=== PATIENT | male | born 1945 | race Caucasian/White ===

== ENCOUNTER 2020-10-16 10:19 | Emergency (ER) | payer MEDICARE, SELFPAY ==
--- NOTE | ~2020-10-16 | XR_ITS ---
EXAMINATION: XR clavicle RT EXAM DATE: 10/16/2020 10:48 INDICATION: Right ribs and right clavicle pain after a fall . Initial encounter. TECHNIQUE: 2 frontal projections of the right clavicle with different degrees of tilt. There are no prior studies for comparison. FINDINGS: There are no acute fractures identified. There is moderate right shoulder primary osteoart hritis. High riding humeral head likely indicating chronic rotator cuff tear. The soft tissue is unr emarkable. IMPRESSION: 1. No acute clavicular fracture suspected. 2. Moderate right shoulder osteoarthritis. 3. Probable chronic rotator cuff tear. Reviewed, dictated and finalized at location A. ESS DEVELOPMENT ENGINEER
--- NOTE | ~2020-10-16 | XR_ITS ---
EXAMINATION: XR ribs RT 2V EXAM DATE: 10/16/2020 10:48 INDICATION: Right ribs and right clavicle pain after a fall . Initial encounter. TECHNIQUE: Frontal projection of the upper right ribs, frontal projection of the lower right ribs, ob lique projection of the right ribs, without chest x-ray(s) for interpretation. Correlation is made to chest x-ray 01/20/2019. FINDINGS: Acute nondisplaced right 5th rib fracture, and mildly displaced right 6th rib fracture late rally, mid axillary line. There is no soft tissue abnormality seen. No evidence of right-sided pneum othorax. Mild thoracic spondylosis, moderate right shoulder primary osteoarthritis. IMPRESSION: Right 5th, 6th rib fractures. Reviewed, dictated and finalized at location A. BUILDER
--- NOTE | 2020-10-16 10:21 | ED.FALL ---
HPI - Fall General Chief Complaint: Fall Stated Complaint: fall Time Seen by Provider: 10/16/20 10:30 Source: patient and RN notes reviewed Mode of arrival: ambulatory Limitations: no limitations History of Present Illness HPI Narrative: 74 year old male presents with concern for fall last night. He reports he tripped on a rug and fell into a table landing on his right shoulder and chest. He has right rib pain and right clavicle pain. He denies any difficulty breathing. Reports pain with deep breathing, coughing. He reports a clavicular deformity, denies clavicular tenderness. complaint: fall Related Data Home Medications Medication Instructions Recorded Confirmed aspirin 81 mg tablet,delayed 81 mg PO DAILY 09/12/19 10/16/20 release doxazosin 4 mg DAILY 10/16/20 10/16/20 Allergies Allergy/AdvReac Type Severity Reaction Status Date / Time lisinopril Allergy Intermediate cough Verified 09/07/20 14:22 Review of Systems Review of Systems: Narrative: CONSTITUTIONAL: Denies malaise, chills, sweats, or fever. EYES: Denies visual changes, redness, or discharge. ENT: Denies rhinorrhea, congestion, sinus pain, otalgia or sore throat. CARDIOVASCULAR: Denies chest pain, palpitations, or edema. RESPIRATORY: Denies cough or dyspnea. GASTROINTESTINAL: Denies abdominal pain, nausea, vomiting, diarrhea, bloody, or mucous stools. GENITOURINARY: Denies dysuria or hematuria. SKIN: Denies rash or itching. MUSCULOSKELETAL: Denies back pain, joint pain, or myalgia. NEUROLOGIC: Denies numbness, weakness, or headache. PSYCHIATRIC: Denies anxiety or depression. All systems reviewed & are unremarkable except as noted in HPI and below PMFSH Surgical History Surgical History History of back surgery History of cardiac radiofrequency ablation Status post hernia repair Family History Family History Father Family history of malignant neoplasm of esophagus Social History Social History Smoking status: Never smoker Second hand tobacco smoke exposure: No Alcohol intake: current Substance use: never Substance use type: does not use Gender identity (if verbalized by the patient): Male Comments At time of signature, agree with nursing past medical, surgical, social and family history. There is no relevant family history pertinent to the presenting complaint Exam Narrative: Exam Narrative: GENERAL: Well-appearing, well-nourished, and in no acute distress. HEAD: Normocephalic, atraumatic. EYES: PERRLA, conjunctivae clear ENT: Mucous membranes moist. NECK: Supple. No jugular venous distension. Carotids were easily palpable bilaterally. CHEST: No respiratory distress. Clear to auscultation. Medial clavicular deformity noted without tenderness to palpation. Speaks in full sentences. HEART: Regular rate and rhythm. No murmur heard.. EXTREMITIES: Right upper extremity has grossly normal range of motion, grossly normal strength and sensation. SKIN: Warm, dry, no rash. NEURO: Alert and oriented x3. PSYCH: Normal mood and affect Course Course Emergency Course: Consulted with radiologist regarding clavicular deformity, radiologist suggest possible CT scan. Consulted with Dr. Baltazar regarding plan of care for possible sternoclavicular dislocation. Dr. Baltazar suggest sending patient to the emergency room for CT scan. Patient reports he takes hydrocodone 3 times daily on a regular basis for chronic back pain. Patient reports that medicine was not easing the pain with deep breathing and coughing. Discussed with patient prescribing slightly stronger pain medicine, however patient needs to replace the stronger dose with his current dose, not take together. Patient verbalized understanding. Patient is aware of, understands and agrees to the emergency. Patient agrees to procee
[2020-10-16 10:40] VITALS: BP 142/66; PULSE 62; RESP 20; TEMP 36.6; O2SAT 99
== END 2020-10-16 11:36 | disposition short-term general hospital (02) ==
PROVIDERS: Emergency Provider Nurse Practitioner; PCP Family Medicine
DX: S22.41XA Multiple fractures of ribs, right side, initial encounter for closed fracture (principal); W18.09XA Striking against other object with subsequent fall, initial encounter; Z79.82 Long term (current) use of aspirin; I25.10 Atherosclerotic heart disease of native coronary artery without angina pectoris; I10 Essential (primary) hypertension; N40.0 Benign prostatic hyperplasia without lower urinary tract symptoms; M19.90 Unspecified osteoarthritis, unspecified site
CPT/HCPCS: 71100; 73000; 99214; G0463

== ENCOUNTER 2020-10-16 13:18 | Emergency (ER) | payer MEDICARE, SELFPAY ==
--- NOTE | ~2020-10-16 | CT_ITS ---
EXAMINATION: CT chest wo con DATE: 10/16/2020 14:15 INDICATION: Status post recent fall. Right-sided rib fractures. Possible sternoclavicular dislocation . TECHNIQUE: Computed tomography (CT) of the chest was performed without intravenous contrast. The dose -length product was 477.86 mGy-cm. Automated exposure control and iterative reconstruction technique were employed. COMPARISON: Right rib series dated 10/16/2020 FINDINGS: There are nondisplaced right fifth and sixth rib fractures. There is hypertrophy of the med ial aspect of the right clavicle at the sternoclavicular joint. No subluxation. No pneumothorax ident ified. No endobronchial lesions. There is polyarticular osteoarthritis of the shoulders. No thoracic lymphadenopathy. Heart size normal. No significant pleural or pericardial effusion. There is a 2 mm r ight upper lobe nodule unchanged. There is a fissural right lower lobe nodule measuring 3 mm, slightl y smaller. There are stable 5 mm right lower lobe nodules without significant change. No new pulmonary nodules or masses. IMPRESSION: 1. Acute nondisplaced right fifth and sixth rib fractures. No evidence for sternal clavicular joint d islocation. 2: Stable right pulmonary nodules measuring 5 mm or less, likely benign. Follow-up low dose CT chest in 12 months recommended. Reviewed, dictated and finalized at location A. ISION AGRICULTURE TECHNICIAN IMPRESSION: 1. Acute nondisplaced right fifth and sixth rib fractures. No evidence for ster nal clavicular joint dislocation. 2: Stable right pulmonary nodules measuring 5 mm or less, likely benign. Follo w-up low dose CT chest in 12 months recommended.
[2020-10-16 13:22] VITALS: BP 131/81; PULSE 60; RESP 19; TEMP 36.5; O2SAT 99
--- NOTE | 2020-10-16 13:48 | ED.UPPEXIN ---
HPI - Extremity Injury (Upper) General Chief Complaint: Extremity Injury, Upper Stated Complaint: rib fx/right sternum puffy/right shoulder pain Time Seen by Provider: 10/16/20 13:40 History of Present Illness HPI narrative: 74 yo male presents from urgent care for possible clavicle dislocation. He had a fall onto his left side yesterday. Since then he has had moderate pain in the right side of his chest. worse with breathing and movement of his upper body. He also has some pain in the right shoulder and clavicle, which he reports as mild. He was seen at urgent care today and found to have a rib fracture on the right side. He also had a clavicle x-ray which was negative. On exam he had what he and the provider thought may be a new deformity at the right sterno clavicular joint. He was sent here for further evaluation. Related Data Home Medications Medication Instructions Recorded Confirmed doxazosin 4 mg DAILY 10/16/20 10/20/20 Allergies Allergy/AdvReac Type Severity Reaction Status Date / Time lisinopril AdvReac Intermediate cough Verified 10/20/20 10:47 Review of Systems Review of Systems: All systems reviewed & are unremarkable except as noted in HPI and below Constitutional: Constitutional: Denies fever(s) and Denies weakness Respiratory: Respiratory: Denies cough and Denies dyspnea Gastrointestinal: Gastrointestinal: Denies abdominal pain and Denies nausea Musculoskeletal: Musculoskeletal: Denies back pain Neurologic: Denies dizziness and Denies weakness [facility] Past Medical History Medical History Actinic keratosis Allergic rhinitis, cause unspecified (01/15/18) Anxiety BPH (benign prostatic hyperplasia) (07/24/17) Chronic low back pain (07/24/17) Essential (primary) hypertension Gastroesophageal reflux disease without esophagitis History of basal cell carcinoma History of prostate cancer IFG (impaired fasting glucose) Peripheral neuropathy (11/20/17) Peripheral vascular disease (11/13/17) SVT (supraventricular tachycardia) Unspecified osteoarthritis, unspecified site Surgical History Surgical History History of back surgery History of cardiac radiofrequency ablation Status post hernia repair Family History Family History Father Family history of malignant neoplasm of esophagus Social History Social History Smoking status: Never smoker Second hand tobacco smoke exposure: No Alcohol intake: current Substance use: never Substance use type: does not use Gender identity (if verbalized by the patient): Male Exam Const: General: healthy appearing, no acute distress and alert Orientation/consciousness: patient oriented x3 HENMT: Head: normal to inspection Neck: Neck: normal visual inspection and no lymphadenopathy Chest: Chest palpation & inspection: tenderness rib (RIght lateral) Other: mildly protruding and asymmetrical right sternoclavicular joint Resp: Effort & Inspection: normal respiratory effort Auscultation: clear to auscultation bilaterally, crackles, no rales, no rhonchi and no wheezes Cardio: Jugular venous distension: no JVD Rate: regular rate Rhythm: regular rhythm Heart sounds: no murmurs GI: Inspection: non-distended GI Palp: Yes Soft to palpation and No Tenderness to palpation present (GI) Skin: General skin exam: normal color Neuro: General: patient oriented x3, moves all extremities and CN's II-XI intact bilaterally Speech: normal speech Gait exam (Neuro): Normal gait present Extrem: General: no edema Psych: Appearance: well kempt Affect: normal affect Course Vital Signs Vital signs: Vital Signs Temperature 36.5 C 10/16/20 13:22 Pulse Rate 60 10/16/20 13:22 Respiratory Rate 19 10/16/20 13:22 Blood Pressure 131
[2020-10-16 16:09] VITALS: BP 130/78; PULSE 64; RESP 18; O2SAT 100
== END 2020-10-16 16:10 | disposition home or self-care (01) ==
PROVIDERS: Emergency Provider Emergency Medicine; PCP Family Medicine
DX: S43.61XA Sprain of right sternoclavicular joint, initial encounter (principal); S22.41XA Multiple fractures of ribs, right side, initial encounter for closed fracture; N40.0 Benign prostatic hyperplasia without lower urinary tract symptoms; I10 Essential (primary) hypertension; K21.9 Gastro-esophageal reflux disease without esophagitis; Z85.828 Personal history of other malignant neoplasm of skin; Z85.46 Personal history of malignant neoplasm of prostate; G62.9 Polyneuropathy, unspecified; I73.9 Peripheral vascular disease, unspecified; M19.90 Unspecified osteoarthritis, unspecified site; R91.8 Other nonspecific abnormal finding of lung field; W19.XXXA Unspecified fall, initial encounter
CPT/HCPCS: 71100; 71250; 73000; 99284

== ENCOUNTER → 2021-03-24 12:42 | Outpatient (CLI) | payer MEDICARE, SELFPAY ==
--- NOTE | ~2021-03-24 | MR_ITS ---
EXAMINATION: MR lumbar spine wo con DATE: 03/24/2021 14:20 INDICATION: Low back pain. TECHNIQUE: Magnetic resonance imaging (MRI) of the lumbar spine was performed without intravenous con trast. Sequences included sagittal T2-weighted FSE, sagittal STIR FSE, sagittal T1-weighted FSE, and axial T2-weighted FSE. COMPARISON: Lumbar spine MRI 01/08/2016 FINDINGS: There is 10 degrees levoscoliosis of lumbar spine. There is 3 mm retrolisthesis of L1 on L2 and L2 on L3 and 4 mm anterolisthesis of L4 on L5. There are changes of anterior and posterior fusio n procedures at L4-L5 with discectomy, interbody devices, and pedicle screws. Vertebral body heights are normal. There is severely decreased disc height at L1-L2 and L2-L3, moderately decreased disc hei ght at L3-L4, and mildly decreased disc height at L5-S1 with endplate remodeling. The distal spinal c ord signal intensity is normal. The conus medullaris is at T12. The following disc levels are specifi hao discussed: L1-L2: The disc is bulging and has an annular fissure. There is mild bilateral facet joint osteoarthr itis. There is moderate right and mild left neural foraminal stenosis. There is mild central canal st enosis. L2-L3: The disc is bulging as an annular fissure. There is mild right and severe left facet joint ost eoarthritis. There is mild bilateral neural foraminal stenosis. There is mild central canal stenosis. L3-L4: The disc is bulging and has an annular fissure. There is severe bilateral facet joint osteoart hritis. There is moderate bilateral neural foraminal stenosis. There is mild central canal stenosis. L4-L5: There is moderate bilateral facet joint hypertrophy. There is moderate bilateral neural forami nal stenosis. There is no central canal stenosis. There is posterior decompression. L5-S1: The disc is bulging and has an annular fissure. There is severe bilateral facet joint osteoart hritis. There is mild bilateral neural foraminal stenosis. There is mild central canal stenosis. IMPRESSION: 1. Severe lumbar spondylosis, worsened from 01/08/2016. 2. Anterior and posterior fusion procedures at L4-L5. 3. Lumbar levoscoliosis. Reviewed, dictated and finalized at location A.
== END ==
PROVIDERS: PCP Family Medicine; Visit Provider Family Medicine
DX: M47.817 Spondylosis without myelopathy or radiculopathy, lumbosacral region (principal); M48.07 Spinal stenosis, lumbosacral region; Z98.1 Arthrodesis status; M41.9 Scoliosis, unspecified
CPT/HCPCS: 72148

== ENCOUNTER 2022-04-07 12:10 | Emergency (ER) | payer MEDICARE, SELFPAY ==
[2022-04-07 12:11] VITALS: BP 119/48; PULSE 89; RESP 18; TEMP 36.8; O2SAT 89
--- NOTE | 2022-04-07 12:28 | ED.EAR ---
HPI - Ear Problem General Chief complaint: Ear Stated complaint: Rt Ear Irritation Time Seen by Provider: 04/07/22 12:28 History of Present Illness HPI Narrative: Rodriguez Costa is a 76 yo male with HTN, BPH, with complaints of right ear pain and decreased hearing and some problems that equilibrium. Patient was seen last week at primary care doctor who stated that he had some wax in his ears as per suggested he use Debrox Related Data Allergies Allergy/AdvReac Type Severity Reaction Status Date / Time lisinopril AdvReac Intermediate cough Verified 04/07/22 12:20 Review of Systems Review of Systems: CONSTITUTIONAL: Denies fever, chills, sweats. Feeling a little unsteady EYES: Denies visual changes, redness, discharge. ENT: Denies rhinorrhea, congestion, sore throat, right otalgia, with decreased hearing CARDIOVASCULAR: Denies chest pain, palpitations, edema. RESPIRATORY: Denies dyspnea, wheezing, cough GASTROINTESTINAL: Denies abdominal pain, nausea, vomiting, diarrhea. GENITOURINARY: Denies dysuria, hematuria, abnormal discharge SKIN: Denies rash or itching. NEUROLOGIC: Denies numbness, or focal weakness. PSYCHIATRIC: Denies anxiety or depression. [facility] Past Medical History Medical History Actinic keratosis Allergic rhinitis, cause unspecified (01/15/18) Anxiety BPH (benign prostatic hyperplasia) (07/24/17) Chronic low back pain (07/24/17) Essential (primary) hypertension Gastroesophageal reflux disease without esophagitis History of basal cell carcinoma History of prostate cancer IFG (impaired fasting glucose) Peripheral neuropathy (11/20/17) Peripheral vascular disease (11/13/17) Rotator cuff arthropathy of right shoulder SVT (supraventricular tachycardia) Unspecified osteoarthritis, unspecified site Surgical History Surgical History History of back surgery History of cardiac radiofrequency ablation Status post hernia repair Family History Family History Father Family history of malignant neoplasm of esophagus Social History Social History Smoking status: Never smoker Second hand tobacco smoke exposure: No Alcohol intake: current Alcohol use details: social drinker Substance use: never Substance use type: does not use Gender identity (if verbalized by the patient): Male Sexual Orientation (if Verbalized by the Patient): Straight or Heterosexual Comments At time of signature, I agree with nursing past medical, surgical, social and family history. There is no relevant family history pertinent to the presenting complaint. Exam Narrative: GENERAL: This is a well-nourished, well-developed patient, in mild distress. HEAD: normocephalic, atraumatic. EYES: Sclera clear/white. Vision is grossly intact. EARS: External ears normal on L, erythema and edema of auditory canals and with drainage, TMsnot visualized on R. Hearing grossly intact. NOSE: External nose normal without nasal discharge, nares without redness, no rhinorrhea. THROAT: Mucous membranes moist, NECK: Neck supple, CARDIOVASCULAR: Regular rate and rhythm without murmurs, gallops, or rubs. RESPIRATORY: Clear to auscultation. Breath sounds equal bilaterally. No wheezes, rales, or rhonchi. GASTROINTESTINAL: not done SKIN: warm, intact with no suspicious lesions or rash, good texture and turgor. NEURO: awake, alert, and oriented to person, place and time. There were no obvious focal neurologic abnormalities. Steady gait EXTREMITIES: Normal range of motion. BACK: Nontender without deformity Course Course Emergency Course: Patient here for right ear pain has been using Debrox to both ears for last 4 to 5 days and feels little steady on feet The exam shows a infection of the right ear canal with some discharge
== END 2022-04-07 12:49 | disposition home or self-care (01) ==
PROVIDERS: Emergency Provider Nurse Practitioner; PCP Family Medicine
DX: H65.191 Other acute nonsuppurative otitis media, right ear (principal); N40.0 Benign prostatic hyperplasia without lower urinary tract symptoms; I10 Essential (primary) hypertension; K21.9 Gastro-esophageal reflux disease without esophagitis; I73.9 Peripheral vascular disease, unspecified; G62.9 Polyneuropathy, unspecified; M19.90 Unspecified osteoarthritis, unspecified site; Z85.828 Personal history of other malignant neoplasm of skin; Z85.46 Personal history of malignant neoplasm of prostate
CPT/HCPCS: 99213; G0463

== ENCOUNTER 2022-09-28 13:47 | Outpatient (CLI) | payer MEDICARE, SELFPAY ==
--- NOTE | ~2022-09-28 | XR_ITS ---
EXAMINATION: XR knee RT min 4V DATE: 09/28/2022 14:11 INDICATION: Right knee pain TECHNIQUE: Four views of the right knee were obtained. COMPARISON: None. FINDINGS: Alignment is normal. No fracture or osteochondral lesion. There is tricompartmental osteoar thritis, moderate in the medial compartment. A small joint effusion is present. Soft tissues are unre markable. IMPRESSION: 1. Osteoarthritis without acute osseous abnormality. Reviewed, dictated and finalized at location A. CTOR OF TAX SERVICES
== END 2022-09-28 13:48 | disposition home or self-care (01) ==
PROVIDERS: PCP Family Medicine; Visit Provider Physician Assistant
DX: M17.11 Unilateral primary osteoarthritis, right knee (principal)
CPT/HCPCS: 73564

== ENCOUNTER 2022-10-02 09:15 | Outpatient (CLI) | payer MEDICARE, SELFPAY ==
--- NOTE | ~2022-10-02 | US_ITS ---
EXAMINATION: US abdomen limited DATE: 10/02/2022 10:06 INDICATION: Right upper quadrant pain, cirrhosis TECHNIQUE: Multiple grayscale and Doppler ultrasound images of the abdomen were obtained. COMPARISON: 10/13/2013 FINDINGS: The head and body of the pancreas are normal. The pancreatic tail is obscured by bowel gas. The liver demonstrates increased echogenicity, heterogenous echotexture, and decreased through trans mission. There is nodularity of the liver surface. Normal hepatopetal flow in the main portal vein. T he gallbladder is normal with no abnormal wall thickening, pericholecystic fluid or stones. The ben l common bile duct measures 4 mm. There was no sonographic Blount sign. IMPRESSION: 1. Findings consistent with cirrhosis. Reviewed, dictated and finalized at location A. N ENERGY MARKETING ANALYST
== END 2022-10-02 09:16 | disposition home or self-care (01) ==
PROVIDERS: PCP Family Medicine; Visit Provider Physician Assistant
DX: R10.11 Right upper quadrant pain (principal); Z87.19 Personal history of other diseases of the digestive system
CPT/HCPCS: 76705

== ENCOUNTER 2022-12-20 11:13 | Outpatient (CLI) | payer MEDICARE, SELFPAY ==
--- NOTE | ~2022-12-20 | XR_ITS ---
EXAMINATION: XR lumbar spine min 4V DATE: 12/20/2022 11:32 INDICATION: Low back pain TECHNIQUE: Lateral in neutral, flexion, extension views and AP view of the lumbar spine were obtained . COMPARISON: 11/16/2017 FINDINGS: There are changes of anterior and posterior fusion and laminectomy at L4-5. There are 3 mm of retrolisthesis of L2 on L3. No hypermobility is present with flexion or extension. There is severe loss of intervertebral disc space height at L1-2 and L2-3. There is moderate loss of disc space heig ht at L3-4 and L5-S1. The vertebral body heights are maintained. Small degenerative osteophytes proje ct from the anterior endplates of multiple vertebral bodies. There is no fracture. There are 15 degre es of lumbar levoscoliosis. IMPRESSION: 1. Moderate to severe lumbar spondylosis without acute findings or significant interval change. Reviewed, dictated and finalized at location F. ST ECONOMICS PROFESSOR
== END 2022-12-20 11:14 | disposition home or self-care (01) ==
PROVIDERS: PCP Family Medicine; Visit Provider Nurse Practitioner Adult Health
DX: M47.816 Spondylosis without myelopathy or radiculopathy, lumbar region (principal)
CPT/HCPCS: 72110

== ENCOUNTER 2022-12-27 10:49 | Outpatient (CLI) | payer MEDICARE, SELFPAY ==
--- NOTE | ~2022-12-27 | MR_ITS ---
EXAMINATION: MR cervical spine wo con DATE: 12/27/2022 11:49 INDICATION: Neck pain. TECHNIQUE: Magnetic resonance imaging (MRI) of the cervical spine was performed without intravenous c ontrast. Sequences included sagittal T2-weighted FSE, sagittal T2-weighted FS FSE, sagittal T1-weight ed FSE, axial MERGE, and axial T2-weighted FSE. COMPARISON: None FINDINGS: There is 16 degrees dextroscoliosis of cervical spine. There is 2 mm anterolisthesis of C3 on C4, 3 mm anterolisthesis of C4 on C5, and 2 mm anterolisthesis of C5 on C6 and T1 on T2. Vertebral body heights are normal. There is mildly decreased disc height at C3-C4 and C4-C5, severely decrease d disc height at C5-C6, and moderately decreased disc height at C6-C7. There is increased T2-weighted signal intensity in the spinal cord at C4-C5, consistent with myelomalacia. The following disc level s are specifically discussed: C2-C3: The disc does not extend beyond the endplate margin. There is mild bilateral uncovertebral feliciano nt osteoarthritis. There is severe right and moderate left facet joint osteoarthritis. There is mild right neural foraminal stenosis. There is no central canal stenosis. C3-C4: There is a central extrusion. There is severe bilateral uncovertebral joint osteoarthritis. Th ere is severe bilateral facet joint osteoarthritis. There is moderate bilateral neural foraminal sten osis. There is hypertrophy of the ligamentum flavum. There is moderate central canal stenosis. C4-C5: There is a central extrusion. There is severe bilateral uncovertebral joint osteoarthritis. Th ere is severe bilateral facet joint osteoarthritis. There is severe bilateral neural foraminal stenos is. There is hypertrophy of the ligamentum flavum. There is severe central canal stenosis. C5-C6: The disc is bulging. There is severe bilateral uncovertebral joint osteoarthritis. There is mi ld right and severe left facet joint osteoarthritis. There is mild bilateral neural foraminal stenosi s. There is mild central canal stenosis. C6-C7: The disc is bulging. There is severe bilateral uncovertebral joint osteoarthritis. There is mi ld bilateral facet joint osteoarthritis. There is mild bilateral neural foraminal stenosis. There is no central canal stenosis. C7-T1: The disc does not extend beyond the endplate margin. There is mild right and moderate left unc overtebral joint osteoarthritis. There is severe bilateral facet joint osteoarthritis. There is mild bilateral neural foraminal stenosis. There is no central canal stenosis. IMPRESSION: 1. 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 2. Severe cervical spondylosis. 3. Cervical dextroscoliosis. Reviewed, dictated and finalized at location A. TACKER
--- NOTE | ~2022-12-27 | MR_ITS ---
EXAMINATION: MR lumbar spine wo con DATE: 12/27/2022 11:49 INDICATION: Back pain. TECHNIQUE: Magnetic resonance imaging (MRI) of the lumbar spine was performed without intravenous con trast. Sequences included sagittal T2-weighted FSE, sagittal T2-weighted FS FSE, sagittal T1-weighted FSE, and axial T2-weighted FSE. COMPARISON: Lumbar spine MRI 03/24/2021 FINDINGS: There is 14 degrees levoscoliosis of lumbar spine. There is 3 mm retrolisthesis of L1 on L2 and L2 on L3 and 5 mm anterolisthesis of L4 on L5. There are changes of anterior and posterior fusio n procedure at L4-L5 with interbody device and pedicle screws. There is moderately decreased disc hei ght at T12-L1, severely decreased disc height at L1-L2, L2-L3, and L3-L4, and mildly decreased disc h eight at L5-S1 with endplate remodeling. The distal spinal cord signal intensity is normal. The conus medullaris is at T12. The following disc levels are specifically discussed: T12-L1: The disc is bulging with superimposed left foraminal extrusion. There is mild bilateral facet joint osteoarthritis. There is mild left neural foraminal stenosis. There is mild central canal sten osis. L1-L2: The disc is bulging and has an annular fissure. There is mild bilateral facet joint osteoarthr itis. There is moderate right and mild left neural foraminal stenosis. There is mild central canal st enosis. L2-L3: The disc is bulging. There is mild right and severe left facet joint osteoarthritis. There is moderate right and mild left neural foraminal stenosis. There is mild central canal stenosis. L3-L4: The disc is bulging and has an annular fissure. There is severe bilateral facet joint osteoart hritis. There is moderate bilateral neural foraminal stenosis. There is mild central canal stenosis. L4-L5: There is no facet joint hypertrophy. There is no neural foraminal stenosis. There is no centra l canal stenosis. There is posterior decompression. L5-S1: The disc is bulging and has an annular fissure. There is severe bilateral facet joint osteoart hritis. There is mild bilateral neural foraminal stenosis. There is mild central canal stenosis with posterior decompression. IMPRESSION: 1. Severe lumbar spondylosis, stable from 11/24/2020. 2. Anterior and posterior fusion procedures at L4-L5. 3. Lumbar levoscoliosis. Reviewed, dictated and finalized at location A. [employer]
== END 2022-12-27 10:50 | disposition home or self-care (01) ==
PROVIDERS: PCP Family Medicine; Visit Provider Nurse Practitioner Adult Health
DX: M47.812 Spondylosis without myelopathy or radiculopathy, cervical region (principal); M47.816 Spondylosis without myelopathy or radiculopathy, lumbar region; Z98.1 Arthrodesis status
CPT/HCPCS: 72141; 72148

== ENCOUNTER 2023-01-03 07:32 | Outpatient (CLI) | payer MEDICARE, SELFPAY ==
--- NOTE | ~2023-01-03 | US_ITS ---
Limited Abdominal Sonogram: Real-time sonographic imaging of the right upper quadrant was performed. Clinical History: Cirrhosis Findings: The liver appears mildly heterogeneous, mildly nodular contour. No mass lesion or bile vita t dilatation. Main portal vein demonstrates normal direction of flow. The gallbladder is well distend ed, and appears normal with no evidence of gallstone or wall thickening. The common bile duct measure s 3 mm. The visualized pancreas, aorta, and IVC are unremarkable. Impression: Findings suggestive of cirrhotic change of the liver. Correlate clinically and with LFTs. Reviewed, dictated and finalized at location . Impression: Findings suggestive of cirrhotic change of the liver. Correlate clinically and with LFTs.
== END 2023-01-03 07:33 | disposition home or self-care (01) ==
PROVIDERS: PCP Family Medicine; Visit Provider Internal Medicine Gastroenterology
DX: K74.69 Other cirrhosis of liver (principal)
CPT/HCPCS: 76705

== ENCOUNTER 2023-01-29 13:47 | Outpatient (CLI) | payer MEDICARE, SELFPAY ==
[2023-01-29 14:12] LABS: Basophils Percent Auto 0.5 % (0.2-1.2); Eosinophils Absolute Auto 0.1 K/mm3 (0-0.3); Eosinophils Percent Auto 0.9 % (0-4.4); Hematocrit 39.8 % (42.0-52.0); Hemoglobin 13.4 g/dL (14.0-18.0); Immature Granulocyte Absolute 0.05 K/mm3 (0.00-0.031); Immature Granulocyte Percent A 0.6 % (0-0.5); Lymphocytes Absolute Auto 1.01 K/mm3 (0.9-3.2); Lymphocytes Percent Auto 12.6 % (18.3-44.2); Mean Corpuscular HGB Conc 33.7 g/dl (32-36); Mean Corpuscular Hemoglobin 36.2 pg (26-34); Mean Corpuscular Volume 107.6 fl (80-100); Mean Platelet Volume 9.5 fl (7.4-10.4); Monocytes Absolute Auto 0.7 K/mm3 (0.1-0.6); Monocytes Percent Auto 9.1 % (2.6-8.5); Neutrophils Absolute Auto 6.1 K/mm3 (1.3-6.7); Neutrophils Percent Auto 76.3 % (45.5-73.1); Platelet Count Result 142 k/mm3 (150-375); Red Cell Distribution Width 12.8 % (11.5-14.5)
--- NOTE | 2023-01-29 14:16 | ECG_ITS ---
Measurements Intervals [place] Rate: 63 P: 0 KS: 184 QRS: 12 QRSD: 83 T: 30 QT: 393 QTc: 404 Interpretive Statements SINUS RHYTHM WITH OCCASIONAL SUPRAVENTRICULAR PREMATURE COMPLEXES BASELINE ARTIFACT BORDERLINE ECG COMPARED TO ECG 01/20/2019 13:05:21 NO SIGNIFICANT CHANGES Electronically Signed On 01-29-2023 17:06:08 CDT by Markos Porter M.D.
[2023-01-29 14:24] LABS: INR 1.1; Prothrombin Time 13.4 Seconds (11.1-14.7)
[2023-01-29 14:27] LABS: Anion Gap 5 mmol/L (8-16); Blood Urea Nitrogen 20 mg/dL (9-20); Calcium 8.9 mg/dL (8.4-10.2); Carbon Dioxide 29 mmol/L (22-30); Chloride 106 mmol/L (98-107); Estimated Glomerular Filt Rate > 60; Glucose 109 mg/dL (65-110); Potassium 4.4 mmol/L (3.4-5.0); Sodium 140 mmol/L (137-145)
[2023-01-29 15:08] LABS: Appearance Urine Clear (Clear); Bacteria Urine None Seen /hpf; Bilirubin Urine Negative (Negative); Blood Urine 2+ (Negative); Color Urine Yellow (Yellow); Glucose Urine UA Negative (Negative); Ketones Urine Negative (Negative); Leukocyte Esterase Ur Negative LEU/UL (Negative); Need Manual Microscopic Reviewed; Nitrate Urine Positive (Negative); Protein Urine Negative (Negative); RBC Urine 0-2 /hpf (0-2); Specific Grav Ur 1.022 (1.001-1.035); Squamous Epithelial Cell Urine None seen /hpf (Few); Urobilinogen Urine 0.2 mg/dL (<2.0); WBC Urine 0-5 /hpf
[2023-01-29 15:17] LABS: Add Urine Microscopic? YES
== END 2023-01-29 13:48 | disposition home or self-care (01) ==
PROVIDERS: PCP Family Medicine; Visit Provider Neurological Surgery
DX: Z01.818 Encounter for other preprocedural examination (principal); I73.9 Peripheral vascular disease, unspecified; G95.9 Disease of spinal cord, unspecified; M48.02 Spinal stenosis, cervical region; M47.812 Spondylosis without myelopathy or radiculopathy, cervical region; I49.1 Atrial premature depolarization
CPT/HCPCS: 36415; 80048; 81001; 85025; 85610; 85730; 86850; 86900; 86901; 93005

== ENCOUNTER 2023-02-05 14:13 | Outpatient (CLI) | payer MEDICARE, SELFPAY ==
[2023-02-05 14:33] LABS: Appearance Urine Clear (Clear); Bacteria Urine None Seen /hpf; Bilirubin Urine Negative (Negative); Blood Urine 2+ (Negative); Color Urine Yellow (Yellow); Glucose Urine UA Negative (Negative); Ketones Urine Negative (Negative); Leukocyte Esterase Ur Negative LEU/UL (NEGATIVE); Nitrate Urine Negative (Negative); Non Pathogenic Casts 0-2; Protein Urine Negative (Negative); Specific Grav Ur 1.016 (1.001-1.035); Squamous Epithelial Cell Urine None seen /hpf (Few); Urobilinogen Urine 0.2 mg/dL (<2.0); WBC Urine 0-5 /hpf (0-3); pH Urine 5.5 (5.0-9.0)
[2023-02-05 14:41] LABS: Prothrombin Time 12.6 Seconds (11.1-14.7)
[2023-02-05 14:42] LABS: Partial Thromboplastin Time 25.3 SECONDS (22.3-36.8)
[2023-02-05 14:42] LABS: Add Urine Microscopic? YES
== END 2023-02-05 14:14 | disposition home or self-care (01) ==
PROVIDERS: PCP Family Medicine; Referring Provider Neurological Surgery; Visit Provider Family Medicine
DX: Z01.818 Encounter for other preprocedural examination (principal); I73.9 Peripheral vascular disease, unspecified; R79.1 Abnormal coagulation profile; N39.0 Urinary tract infection, site not specified
CPT/HCPCS: 36415; 81001; 85610; 85730; 87086

== ENCOUNTER 2023-02-15 12:12 | Outpatient (CLI) | payer MEDICARE, SELFPAY | END 2023-02-15 12:13 | disposition home or self-care (01) | LOC: ANHSURGERY 12:17 | PROVIDERS: PCP Family Medicine; Visit Provider Neurological Surgery | DX: G95.9 Disease of spinal cord, unspecified (principal) | CPT/HCPCS: 36415; 86850; 86900; 86901 ==

== ENCOUNTER 2023-02-20 17:09 | Observation (INO) | payer MEDICARE, SELFPAY ==
[2023-02-09 10:55] VITALS: BMI 26.6
--- NOTE | 2023-02-09 11:12 | PC.NURSE ---
PRE-OP INSTRUCTIONS, PLEASE READ CAREFULLY Report to the Outpatient Waiting Room, entrance under the green pavilion located off [facility], at time _0930_ on date _02/20/23_. Planned Procedure Time: _1130_. PACK A SMALL OVERNIGHT BAG AND LEAVE IN THE CAR Time changes happen often and if your time is changed the preop area will call you the afternoon before. - You and your visitor will be asked to self-screen and do not enter if you have any COVID symptoms. - A mask is optional within the hospital at this time. -VISITING HOURS 8AM-8PM Patients may have clear liquids (water, carbonated beverages, clear teas, apple juice) until 3 hours prior to surgery (0830 AM) with a maximum of 20 ounces. - No food from midnight until time of surgery Take the following medications with a SIP of water the morning of surgery: _PAIN PILL IF NEEDED_ DO NOT STOP ANY OF YOUR OTHER PRESCRIPTION MEDICATIONS PRIOR TO SURGERY ?EXCEPT THE FOLLOWING Medications to discontinue per physician __NONE____, Date to take last dose Please no make-up, nail welsh, hairspray, perfume, deodorant, or body powder the day of surgery. No jewelry (including any body piercings) or valuables the day of surgery, leave them at home. Please take a shower or bath the night before, or the morning of, surgery with an antibacterial soap. Wear comfortable, loose fitting clothing. - Jewelry must be removed prior to entering the operating room. Rings and piercings that are not removed may be cut off. - The hospital will not accept responsibility for valuables. - Please leave all valuables, including medications, at home the day of surgery. If you are going home after surgery, a licensed transportation driver must drive you home. - NO public transportation without another adult if you receive anesthesia. - We recommend that an adult stay with you for 24 hours following discharge. - We also recommend that you do not drive, make important decision, drink alcoholic beverages, or take any drugs that were not prescribed by your health care provider for at least 24 hours after your discharge time. Follow any additional instructions given to you from your surgeon. If you or anyone in your household have experienced Covid symptoms in the past week, please notify your surgeon or the nurse liaison at the phone number below for possible testing. Telephone instructions given to _PATIENT_and asked if any additional questions and then verbalized understanding. Patient advised to call surgeon office or pre surgery nurse liaison [phone] if any additional questions.
[2023-02-20] VITALS (17 sets, daily range): BP systolic 118–141; BP diastolic 57–122; PULSE 53–88; RESP 12–18; TEMP 36.1–36.7; O2SAT 90–100
--- NOTE | ~2023-02-20 | XR_ITS ---
EXAMINATION: XR fluoroscopy no charge DATE: 02/20/2023 14:10 INDICATION: C3-C5 cervical laminectomy and C3-C6 lateral mass instrumentation TECHNIQUE: Single lateral fluoroscopic image of the cervical spine was obtained during procedure perf ormed by Dr. Kingston. Radiologist was not present for the imaging or procedure. The amount of fluoro scopy time used during this procedure was 0.1 minutes. COMPARISON: Cervical spine MR dated 12/27/2022 FINDINGS: Soft tissue retractors project over a lucent operative bed posterior to the mid cervical sp ine. The posterior elements are not clearly visualized in this region due to the superimposed instrum entation as well as overpenetration to the soft tissue defect. Lateral mass screws are seen at C3, C4 and C5. Mild disc height loss with mild degenerative endplate changes at C3-C4 and C4-C5. The cervic al spine is obscured below the level of C5. IMPRESSION: 1. Fluoroscopy utilized during neurosurgical procedure and the mid to lower cervical spine. See proce dure note for further detail. Reviewed, dictated and finalized at location L. IMPRESSION: 1. Fluoroscopy utilized during neurosurgical procedure and the mid to lower cer vical spine. See procedure note for further detail.
[2023-02-20] MEDS: LACTATED RINGERS 1,000 ML 30 ML IV CONT ×2 (10:22→14:37)
--- NOTE | 2023-02-20 11:42 | PM.IMHP ---
H&P: HPI History of Present Illness Date/Time: 02/20/23 11:42 Chief Complaint: Myelopathy Narrative: Rodriguez is a 77-year-old gentleman with cervical spondylotic myelopathy who presents for decompression. He has not changed appreciably since we last saw him. He has some diffuse weakness and numbness. His difficulty with his gait and dextrous movements of his hands. He is not having any new bowel or bladder difficulty or other constitutional problems. Review of Systems Review of Systems: Patient denies shortness of breath, cough, fever, chills, nausea, vomiting, weight loss, weight gain, chest pain, dysuria. He has neck pain and myelopathic symptoms as above. His review of systems is otherwise negative on 12 systems except as noted elsewhere. [facility] Past Medical History Medical History Actinic keratosis Allergic rhinitis, cause unspecified (01/15/18) Anxiety BPH (benign prostatic hyperplasia) (07/24/17) Cervical spondylosis Chronic low back pain (07/24/17) Essential (primary) hypertension Gastroesophageal reflux disease without esophagitis History of basal cell carcinoma History of prostate cancer IFG (impaired fasting glucose) Lumbar spondylosis Peripheral neuropathy (11/20/17) Peripheral vascular disease (11/13/17) Rotator cuff arthropathy of right shoulder SVT (supraventricular tachycardia) Unspecified osteoarthritis, unspecified site Surgical History Surgical History History of back surgery History of cardiac radiofrequency ablation Status post hernia repair Family History Family History Father Family history of malignant neoplasm of esophagus Social History Social History Smoking status: Never smoker Second hand tobacco smoke exposure: No Alcohol intake: current Drinks per week: 6 Alcohol use details: social drinker Substance use: never Substance use type: does not use Living arrangements: with family Additional living arrangements comments: LIVES WTIHT SON Occupation/Education: retired Gender identity (if verbalized by the patient): Male Sexual Orientation (if Verbalized by the Patient): Straight or Heterosexual Spiritual care concerns: No Meds Home Medications and Allergies Home Medications Medication Instructions Recorded Confirmed Type doxazosin 8 mg tablet 8 mg PO DAILY #90 tabs 02/19/23 02/20/23 Rx hydrocodone 5 mg-acetaminophen 325 1 tablet PO Q6H PRN pain #120 tabs 02/19/23 02/20/23 Rx mg tablet Allergies Allergy/AdvReac Type Severity Reaction Status Date / Time lisinopril AdvReac Intermediate cough Verified 02/20/23 09:38 Vital Signs Vital Signs - 24 hr 02/20/23 10:30 Temperature 98.0 F Pulse Rate 58 L Respiratory Rate 16 Blood Pressure 125/58 L Pulse Oximetry 95 Oxygen Delivery Room Air Exam Narrative: Strength is normal in the bilateral upper and lower extremities to direct confrontation. Sensation was intact to light touch with some subjective numbness in the hands bilaterally. Regular rate and rhythm Breathing is nonlabored Assessment and Plan Assessment and plan (1) Cervical myelopathy: Code(s): G95.9 - Disease of spinal cord, unspecified Status: Acute (2) Cervical stenosis of spinal canal: Code(s): M48.02 - Spinal stenosis, cervical region Status: Acute Plan Rodriguez is a 77-year-old gentleman with cervical spondylotic myelopathy who presents for a C3-5 laminectomy and C3-6 lateral mass instrumented fusion. I described to him again that operation, its risks, potential benefits, the operative and postoperative course in detail and answered all his questions personally. He indicates understanding and elects to proceed with that operation.
--- NOTE | 2023-02-20 11:45 | WPDHPUPDATE1 ---
History and Physical Update Update Date/Time: 02/20/23 11:45 History and Physical has been reviewed, including an updated exam of the patient. There are NO changes in the patient's condition. Risks, benefits, and alternatives have been discussed and questions answered. Patient agrees to proceed with procedure.
--- NOTE | 2023-02-20 12:00 | WPDANESEPPF ---
Anes - Initial Pre Proc Eval Procedure: Operation Date: 02/20/23 11:30 Proposed Procedures p C3-5 Laminectomy, C3-6 Lateral Mass Instrumental Fusion - Dustin Kingston MD Date/Time: 02/20/23 12:00 Surgeon: Dustin Kingston MD Pre Op Diagnosis: C3-5 stenosis with mylopathy Patient Data Age: 77 Gender: M Height: 1.73 m Weight: 79.2 kg Last Vital Signs Temp 36.7 C 02/20/23 10:30 Pulse 58 L 02/20/23 10:30 Resp 16 02/20/23 10:30 BP 125/58 L 02/20/23 10:30 Pulse Ox 95 02/20/23 10:30 O2 Del Method Room Air 02/20/23 10:30 Allergies Allergy/AdvReac Type Severity Reaction Status Date / Time lisinopril AdvReac Intermediate cough Verified 02/20/23 09:38 Home Medications Medication Instructions Recorded Confirmed Type doxazosin 8 mg tablet 8 mg PO DAILY #90 tabs 02/19/23 02/20/23 Rx hydrocodone 5 mg-acetaminophen 325 1 tablet PO Q6H PRN pain #120 tabs 02/19/23 02/20/23 Rx mg tablet Patient hx anesthesia problems: none Family hx anesthesia problems: none Results Review: All pre-operative results and documents have been reviewed as part of the pre-operative evaluation. [facility] Past Medical History Medical History Actinic keratosis Allergic rhinitis, cause unspecified (01/15/18) Anxiety BPH (benign prostatic hyperplasia) (07/24/17) Cervical spondylosis Chronic low back pain (07/24/17) Essential (primary) hypertension Gastroesophageal reflux disease without esophagitis History of basal cell carcinoma History of prostate cancer IFG (impaired fasting glucose) Lumbar spondylosis Peripheral neuropathy (11/20/17) Peripheral vascular disease (11/13/17) Rotator cuff arthropathy of right shoulder SVT (supraventricular tachycardia) Unspecified osteoarthritis, unspecified site Surgical History Surgical History History of back surgery History of cardiac radiofrequency ablation Status post hernia repair Family History Family History Father Family history of malignant neoplasm of esophagus Social History Social History Smoking status: Never smoker Second hand tobacco smoke exposure: No Alcohol intake: current Drinks per week: 6 Alcohol use details: social drinker Substance use: never Substance use type: does not use Living arrangements: with family Additional living arrangements comments: LIVES WTIHT SON Occupation/Education: retired Gender identity (if verbalized by the patient): Male Sexual Orientation (if Verbalized by the Patient): Straight or Heterosexual Spiritual care concerns: No Anes - Eval Final PreProcedure Day of Procedure 02/20/23 12:00 Patient weight: overweight Heart: regular rate and rhythm Lungs: clear to auscultation Airway: Mallampati scale Neurological: alert and oriented Last oral intake: >/= 8 hours ASA classification: III Emergent: no Anesthetic plan: proceed Anesthesia type and monitoring: general ETT and standard monitoring Results Review: All pre-operative results and documents have been reviewed as part of the pre-operative evaluation. Informed Consent: The patient's anesthetic plan and its attendant risks and benefits were discussed with the patient/family/POA. Questions were solicited and answers provided to the satisfaction of the patient/family/POA.
[2023-02-20] MEDS: ceFAZolin 2 GM/D5W 50 ML 2 GM/50 ML BAG IVPB (12:15)
[2023-02-20] MEDS: LIDO 1%/EPINEPHRINE 1:100,000 50 ML VIAL 10 ML INFILTRATE (13:13)
[2023-02-20] MEDS: fentaNYL CITRATE INJ (*CRX) 100 MCG/2 ML VIAL 25 MCG IV PUSH ×8 (14:48→15:23)
[2023-02-20] MEDS: HYDROmorphone HCL INJ (*CRX) 1 MG/ML SYR 0.5 MG IV PUSH ×6 (15:30→16:25)
--- NOTE | 2023-02-20 17:18 | ADMGEN ---
This patient, Rodriguez Costa, was admitted to Medical Room 252-01. Patient/family oriented to hospital policies and general routines including ID bracelet, bed and alarms, visiting hours, pain management, procedures, bathroom and other care routines, personal items, smoking policy, room service/diet, and visiting hours. Information on how to activate the Rapid Response Team has been discussed. Patient/Family are encouraged to report perceived risks to care and to ask questions if they do not understand what they are told or what they should do.
[2023-02-20] MEDS: HYDROcodone/acetaminophen (*CRX) 10-325 MG TABLET 1 TAB PO ×2 (18:08→23:29)
[2023-02-20] MEDS: DOCUSATE SODIUM 100 MG CAPSULE PO (20:27)
[2023-02-20] MEDS: HYDROcodone/acetaminophen (*CRX) 5-325 MG TABLET 1 TAB PO (20:27)
[2023-02-20] MEDS: ceFAZolin 1 GM/NS 50 ML 1 GM/50 ML BAG IVPB (20:28)
[2023-02-21 00:40] VITALS: BP 117/46; PULSE 62; RESP 16; TEMP 36.6; O2SAT 94
[2023-02-21] MEDS: CYCLOBENZAPRINE HCL 10 MG TABLET PO ×2 (01:34→22:36)
[2023-02-21] MEDS: ceFAZolin 1 GM/NS 50 ML 1 GM/50 ML BAG IVPB ×3 (04:09→20:31)
[2023-02-21] MEDS: HYDROcodone/acetaminophen (*CRX) 10-325 MG TABLET 1 TAB PO ×5 (04:10→20:30)
[2023-02-21 04:55] VITALS: BP 104/46; PULSE 60; RESP 18; TEMP 36.9; O2SAT 97
[2023-02-21 08:02] VITALS: BP 116/58
[2023-02-21] MEDS: DOXAZOSIN MESYLATE 4 MG TABLET 8 MG PO (08:09)
[2023-02-21 09:32] VITALS: BP 98/46; PULSE 107; RESP 16; TEMP 36.5; O2SAT 94
--- NOTE | 2023-02-21 12:16 | WPDANESPN ---
Anes - Prog Note Post-Op Date/Time: 02/21/23 12:16 Vital Signs: Last Vital Signs Temp 36.5 C 02/21/23 09:32 Pulse 107 H 02/21/23 09:32 Resp 16 02/21/23 09:32 BP 98/46 L 02/21/23 09:32 Pulse Ox 94 02/21/23 09:32 O2 Del Method Room Air 02/21/23 09:39 O2 Flow Rate 2 02/20/23 17:50 Pain Score (VAS): 0 I/O: Intake & Output 02/20/23 02/21/23 02/21/23 23:59 07:59 15:59 Intake Total 750 50 480 Output Total 370 60 Balance 380 -10 480 Patient Feedback: Patient satisfied with anesthetic care.
[2023-02-21 13:17] VITALS: BP 126/60; PULSE 94; RESP 16; TEMP 36.4; O2SAT 97
[2023-02-21 19:43] VITALS: BP 114/45; PULSE 62; RESP 16; TEMP 37; O2SAT 94
[2023-02-21] MEDS: DOCUSATE SODIUM 100 MG CAPSULE PO (20:30)
[2023-02-21] MEDS: HYDROcodone/acetaminophen (*CRX) 5-325 MG TABLET 1 TAB PO (22:34)
[2023-02-22 01:00] VITALS: BP 129/57; PULSE 54; RESP 16; TEMP 36.6; O2SAT 96
[2023-02-22] MEDS: HYDROcodone/acetaminophen (*CRX) 10-325 MG TABLET 1 TAB PO ×3 (01:19→14:38)
[2023-02-22] MEDS: ceFAZolin 1 GM/NS 50 ML 1 GM/50 ML BAG IVPB (03:58)
[2023-02-22] MEDS: HYDROcodone/acetaminophen (*CRX) 5-325 MG TABLET 1 TAB PO ×2 (04:09→11:43)
[2023-02-22 05:17] VITALS: BP 113/50; PULSE 55; RESP 16; TEMP 36.4; O2SAT 94
[2023-02-22] MEDS: DOXAZOSIN MESYLATE 4 MG TABLET 8 MG PO (08:44)
[2023-02-22] MEDS: DOCUSATE SODIUM 100 MG CAPSULE PO (08:44)
[2023-02-22 10:05] VITALS: BP 118/52; PULSE 56; RESP 16; TEMP 36.4; O2SAT 95
--- NOTE | 2023-02-22 11:12 | P.OP_ITS ---
Procedure Note - Detailed Date of Procedure 02/22/23 Pre-op Diagnosis C3-5 stenosis with mylopathy Post-op Diagnosis Same Procedure Performed C3-5 laminectomy and C3-6 lateral mass instrumented fusion Surgeon Dustin Kingston MD Anesthesia General Description of Procedure The patient was brought to the operating room in the supine position, was sedated, intubated and placed under general anesthesia in routine fashion. 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 The of operation on the back of the neck was examined, marked for incision, prepped and draped in routine sterile fashion. Incision was marked over the C3 through 7 spinous processes in the midline. This area was injected with 0.5% lidocaine with [id number] epinephrine. Intravenous antibiotics given prior to incision. Incision was made with a 10 blade scalpel down to the cervical fascia. A subperiosteal dissection of the muscle soft tissue away from spinous process lamina at C3-6 was performed with a subperiosteal elevator and Bovie cautery. A verifying x-rays obtained to verify the level of operation. Using a Midas Ariel drill a trough was cut into the lamina on both sides at C3-5. The interspinous ligament above and below was cut wheezing Leksell rongeur. The C3-5 lamina and spinous processes could then be removed. Curved curette was used to define a plane with the dura no additional bone and ligament was removed in the lateral recess to complete the decompression. At C3-5 lateral mass screws were placed. This was done by using the Midas Ariel drill to create a hole through the cortex at a position just medial and inferior to the middle of the facet. A drill set to 12 mm was then used to create a hole 20? cephalad 20? lateral at each of these positions. Tap was used. A 12 mm screw was then placed into each lateral mass on each side. Rods were placed in screw heads on either side and secured in position using the caps that purpose. These were definitively tightened with a torque and anti torque device. The wound was then copiously irrigated with bacitracin irrigation all bleeding stopped with bipolar and Bovie cautery and Gelfoam thrombin powder. The lateral masses were decorticated and local autograft bone was packed against these d ecorticated lateral masses and into the facets that had also been decorticated. A medium Hemovac drain was left in the subfascial position buried out the inferior right of the incision. The wound was then closed in layered fashion with 2-0 Vicryl interrupted sutures in the cervical fascia and Darryl's layer. 3-0 Vicryl buried interrupted sutures were placed in the dermis and the skin was closed with a running 4-0 Monocryl subcuticular stitch and dressed with Dermabond and a Telfa and Tegaderm dressing. The patient was allowed to wake up in the operating room was taken to the recovery room in stable condition. There were no immediate complications of this operation. All counts were reported correct in the case. Blood loss was 200 cc. The patient was neurologically at his baseline postoperatively Estimated Blood Loss 200 IV Fluids 1,500 Urine Output 100 Drains Yes Complications None Condition Stable Disposition PACU [facility] Billing Surgery - Charge Forward: Surgery Billing
[2023-02-22 14:00] VITALS: BP 122/51; PULSE 77; RESP 16; TEMP 36.9; O2SAT 96
--- NOTE | 2023-03-05 09:22 | PM.DS ---
DS: Admitting Diagnosis Discharge Date 02/22/23 Admitting Diagnosis cervical spondylotic myelopathy C3-5 DS: Discharge Diagnosis Discharge Diagnosis (1) Cervical myelopathy: Code(s): G95.9 - Disease of spinal cord, unspecified Status: Acute (2) Cervical stenosis of spinal canal: Code(s): M48.02 - Spinal stenosis, cervical region Status: Acute DS: Summary Hospital Course Hospital Course: the patient was taken to the operating room on 02/20/2023 with the C3-5 laminectomy and C3-6 lateral mass instrumented fusion was performed without complication. The patient went to the floor postoperatively. His drain was removed on postoperative day 1. By postoperative day 2 he was eating, ambulating and emptying his bladder in his pain was under control with by mouth pain medicine. His wounds remained clean dry and intact. He was afebrile stable vital signs. He was therefore allowed to be discharged to home. Time Spent with Patient Time attestation: Total time spent providing and/or coordinating discharge services: Discharge Plan Discharge Attending physician on discharge: Dustin Kingston Consulting providers: Quan Ochoa; Ely Carey; Marco A Carias Discharging Clinician: Dustin Kingston Anticipated Discharge Date/Time: 02/22/23 12:22 Patient Disposition: Home, Self-Care Activity: as tolerated and other - see discharge instructions Diet: as tolerated Wound Care Instructions: follow printed instructions Discharge Instructions: No bending/lifting/twisting until seen by provider at follow-up appointment. Okay to shower and remove dressing at 3 days post-op. Patient Instructions: Antibiotic Form Stand Alone Forms: General Discharge Information Follow-up/Referrals: Dustin Kingston MD [Physician] - Keep Reg. Scheduled Appt. Discharge Medications: New hydrocodone-acetaminophen 5-325 mg tablet 1 - 2 tablet PO Q6H PRN (Reason: pain) Qty: 40 0RF Continued doxazosin 8 mg tablet 8 mg PO DAILY Qty: 90 1RF Discontinued hydrocodone-acetaminophen 5-325 mg tablet 1 tablet PO Q6H PRN (Reason: pain) Qty: 120 0RF No Action cyclobenzaprine 10 mg tablet 10 mg PO TID Qty: 30 0RF Date of admission: 02/20/23 17:09 Primary Care Provider: Zackery Randle Admitting Provider: Dustin Kingston Attending physician on admission: Dustin Kingston Condition: Improved
== END 2023-02-22 15:20 | disposition home or self-care (01) ==
LOC: ANH2MED 02-22 12:29
PROVIDERS: Admitting Provider Neurological Surgery; PCP Family Medicine; Visit Provider Neurological Surgery
PROC: (CPT 63030; principal; 2023-02-20 11:30)
DX: M48.02 Spinal stenosis, cervical region (principal); M47.12 Other spondylosis with myelopathy, cervical region; R53.1 Weakness; R20.0 Anesthesia of skin; R26.9 Unspecified abnormalities of gait and mobility; M54.2 Cervicalgia; F41.9 Anxiety disorder, unspecified; N40.0 Benign prostatic hyperplasia without lower urinary tract symptoms; I10 Essential (primary) hypertension; G89.29 Other chronic pain; M54.50 Low back pain, unspecified; R73.01 Impaired fasting glucose; M47.816 Spondylosis without myelopathy or radiculopathy, lumbar region; G62.9 Polyneuropathy, unspecified; I73.9 Peripheral vascular disease, unspecified; I47.1 Supraventricular tachycardia; M19.90 Unspecified osteoarthritis, unspecified site; F10.90 Alcohol use, unspecified, uncomplicated; Z79.891 Long term (current) use of opiate analgesic
CPT/HCPCS: 22600; 22614 ×2; 22842; 20936; 36415; 80048; 81001; 85025; 85610; 85730; 86850; 86900; 86901; 87086; 93005; 97161; 97165; 97530; 97535; 99199; A9270; C1713; J0690; J1100; J1170; J2405; J2704; J3010; J7120

== ENCOUNTER 2023-04-06 14:09 | Outpatient (CLI) | payer MEDICARE, SELFPAY ==
--- NOTE | ~2023-04-06 | XR_ITS ---
XR_[id number]_CR DATE: 04/06/2023 14:27 INDICATION: Status post cervical laminectomy and fusion TECHNIQUE: AP, open-mouth, lateral views COMPARISON: None FINDINGS: Status post posterior surgical fusion at C3-C6. There is moderate degenerative disc disease and mild anterolisthesis at C3-4 and C4-5. There is severe degenerative disc disease at C5-6 and C6-7. There is reversal of lower cervical curvature. There is mild cervical dextroscoliosis. C1 and C2 are normally aligned and the odontoid process is intact. No fracture or dislocation or lock ed facet or prevertebral soft tissue swelling is evident. IMPRESSION: Status post posterior surgical fusion at C3-C6 Multilevel degenerative disc disease, moderate at C3-4, C4-5, severe at C5-6 and C6-C7 Mild anterolisthesis at C3-4 and C4-5 Reviewed, dictated and finalized at Location A. Reviewed, dictated and finalized at location A. IMPRESSION: Status post posterior surgical fusion at C3-C6 Multilevel degenerative disc disease, moderate at C3-4, C4-5, severe at C5-6 an d C6-C7 Mild anterolisthesis at C3-4 and C4-5
== END 2023-04-06 14:10 | disposition home or self-care (01) ==
PROVIDERS: PCP Family Medicine; Visit Provider Neurological Surgery
DX: Z98.1 Arthrodesis status (principal); Z98.890 Other specified postprocedural states; M50.321 Other cervical disc degeneration at C4-C5 level
CPT/HCPCS: 72040

== ENCOUNTER 2023-05-30 13:51 | Outpatient (CLI) | payer MEDICARE, SELFPAY ==
--- NOTE | ~2023-05-30 | MR_ITS ---
EXAMINATION: MR cervical spine wo con DATE: 05/30/2023 15:13 INDICATION: Arm and leg numbness TECHNIQUE: Magnetic resonance imaging (MRI) of the cervical spine was performed without intravenous c ontrast. Sequences included sagittal T2-weighted FSE, sagittal T2-weighted FS FSE, sagittal T1-weight ed FSE, axial MERGE and axial T2-weighted FSE. COMPARISON: 12/27/2022 FINDINGS: 10 degrees cervical dextrocurvature. 2 mm anterolisthesis C7 on T1. Vertebral body heights are ben l. Interval postoperative changes of C3, C4 and C5 laminectomies and instrumented C3-C6 posterior spi nal fusion with bilateral vertical teri and lateral mass screw fixation. Bone marrow signal intensity is normal. Severe disc height loss at C5-C6. Moderate disc height loss at C6-C7. Mild disc height los s at and C3-C4, C4-C5 and C7-T1. Again seen is a focal region of increased T2 signal and decreased pr ofessional area of the cervical spinal cord at the level of C4-C5 consistent with myelomalacia. The f ollowing disc levels are specifically discussed: C2-C3: Small left paracentral disc protrusion. There is moderate right and mild left uncovertebral archie int osteoarthritis. There is moderate left and severe right facet joint osteoarthritis. There is mild right neural foraminal stenosis. There is no central canal stenosis. C3-C4: Unchanged central disc extrusion There is severe bilateral uncovertebral joint osteoarthritis. Posterior spinal fusion with metallic magnetic field artifact which obscured the region of the facet joints. There is moderate bilateral neural foraminal stenosis. There is no central canal stenosis. C4-C5: Unchanged central disc extrusion. There is severe bilateral uncovertebral joint osteoarthritis . Posterior spinal fusion with metallic magnetic field artifact which obscured the region of the face t joints. There is mild left and moderate right neural foraminal stenosis. There is mild central corinne l stenosis. C5-C6: Posterior disc osteophyte complex. There is severe bilateral uncovertebral joint osteoarthriti s. Posterior spinal fusion with metallic magnetic field artifact which obscured the region of the fac et joints. There is moderate bilateral neural foraminal stenosis. There is mild central canal stenosi s with indentation of the ventral surface of the cord, right greater than left. C6-C7: Disc is mildly bulging. There is moderate right and severe left uncovertebral joint osteoarthr itis. There is mild bilateral facet joint osteoarthritis. There is mild right and mild to moderate le ft neural foraminal stenosis. There is no central canal stenosis. C7-T1: The disc does not extend beyond the endplate margin. There is mild right uncovertebral joint o steoarthritis. There is severe bilateral facet joint osteoarthritis. There is mild bilateral neural f oraminal stenosis. There is no central canal stenosis. IMPRESSION: 1. Severe cervical spondylosis with interval C3-C5 laminectomies and C3-C6 instrumented posterior spi nal fusion. 2. Unchanged focal myelomalacia at C4-C5. Reviewed, dictated and finalized at location B. IMPRESSION: 1. Severe cervical spondylosis with interval C3-C5 laminectomies and C3-C6 inst rumented posterior spinal fusion. 2. Unchanged focal myelomalacia at C4-C5.
--- NOTE | ~2023-05-30 | CT_ITS ---
EXAMINATION: CT cervical spine wo con DATE: 05/30/2023 14:19 INDICATION: Cervical arthrodesis. TECHNIQUE: Computed tomography (CT) of the cervical spine was performed without intravenous contrast. Automated exposure control and iterative reconstruction technique were employed. The dose-length pro duct was 476.22 mGy-cm. COMPARISON: Cervical spine MRI 05/30/2023 FINDINGS: There is mild scarring at the lung apices. There is 2 mm anterolisthesis of C4 on C5, C5 on C6, and C7 on T1. Vertebral body heights are normal. There are changes of posterior fusion procedure from C3 to C6 with lateral mass screws. There is moderately decreased disc height at C3-C4 and C4-C5 and severely decreased disc height at C5-C6 and C6-C7. There are laminectomies from C3 to C5. The fo llowing disc levels are specifically discussed: C2-C3: There is severe right and mild left uncovertebral joint osteoarthritis. There is severe right and moderate left facet joint osteoarthritis. There is mild bilateral neural foraminal stenosis. Ther e is no central canal stenosis. C3-C4: There is severe bilateral uncovertebral joint osteoarthritis. There is severe bilateral facet joint osteoarthritis. There is mild bilateral neural foraminal stenosis. There is mild central canal stenosis with posterior decompression. C4-C5: There is severe bilateral uncovertebral joint osteoarthritis. There is severe bilateral facet joint osteoarthritis. There is mild bilateral neural foraminal stenosis. There is mild central canal stenosis with posterior decompression. C5-C6: There is severe bilateral uncovertebral joint osteoarthritis. There is mild right and severe l eft facet joint osteoarthritis. There is mild bilateral neural foraminal stenosis. There is mild cent ral canal stenosis with posterior decompression. C6-C7: There is mild right and severe left uncovertebral joint osteoarthritis. There is mild bilatera l facet joint osteoarthritis. There is mild left neural foraminal stenosis. There is no central canal stenosis. C7-T1: There is no uncovertebral joint osteoarthritis. There is severe bilateral facet joint osteoart hritis. There is mild bilateral neural foraminal stenosis. There is no central canal stenosis. IMPRESSION: 1. Severe cervical spondylosis. 2. Posterior fusion procedure from C3 to C6. Reviewed, dictated and finalized at location A.
== END 2023-05-30 13:52 | disposition home or self-care (01) ==
PROVIDERS: PCP Family Medicine; Visit Provider Neurological Surgery
DX: G95.9 Disease of spinal cord, unspecified (principal); Z98.1 Arthrodesis status; M47.892 Other spondylosis, cervical region
CPT/HCPCS: 72125; 72141

== ENCOUNTER 2023-06-04 09:18 | Outpatient (CLI) | payer MEDICARE, SELFPAY ==
--- NOTE | ~2023-06-04 | NM_ITS ---
EXAMINATION: NM hepatobiliary wo pharm DATE: 06/04/2023 14:54 INDICATION: Right upper quadrant abdominal pain COMPARISON: None. TECHNIQUE: I 0.3 mCi Tc-99m mebrofenin (Choletec) was administered intravenously. Scintigraphic imag es of the abdomen were obtained for one hour. At the 1 hour time point, the patient drank 8 oz Ensure , and imaging was continued for 60 minutes. Gallbladder ejection fraction was calculated by the techn ologist. FINDINGS: There is normal clearance of radiotracer from the blood pool. There is homogeneous tracer u ptake by the liver. Activity progresses to the bowel and gallbladder. The gallbladder ejection fract ion (GBEF) is 43%. Note that with this technique, normal GBEF >= 33%. IMPRESSION: 1. Normal hepatobiliary scan Reviewed, dictated and finalized at location A.
== END 2023-06-04 09:19 | disposition home or self-care (01) ==
PROVIDERS: PCP Family Medicine; Visit Provider Physician Assistant
DX: R10.11 Right upper quadrant pain (principal)
CPT/HCPCS: 78226; A9537

== ENCOUNTER 2023-08-29 14:40 | Emergency (ER) | payer MEDICARE, SELFPAY ==
[2023-08-29 15:15] VITALS: BP 125/61; PULSE 60; RESP 18; TEMP 36.1; O2SAT 98
--- NOTE | 2023-08-29 15:15 | ED.WOUNDLAC ---
HPI - Wound/Laceration General Chief Complaint: Wound/Laceration Stated Complaint: laceration Time Seen by Provider: 08/29/23 15:16 Source: patient, RN notes reviewed and old records reviewed Mode of arrival: ambulatory Limitations: no limitations History of Present Illness HPI narrative: 77-year-old male presents to the [facility] with complaints of head injury injury. States that just prior to arrival he tripped hitting his head causing 2 lacerations to the right eyebrow. Patient is not on blood thinners. Denies any blurry vision, change in vision. No midline tenderness. Denies any loss of consciousness. Denies any neck pain. Denies any pain anywhere else other than localized to the right eyebrow. No orbital tenderness. Patient neurologically in checked. Moving all 4 extremities with no issue Denies any headaches. Discussed that due to his age concerned for the head trauma wanting to send to ER, patient declined and will sign AMA. Patient is alert and oriented. States that he takes Vicodin for his chronic pain. Onset (ago): hour(s) (1) Patient tetanus UTD: No Related Data Allergies Allergy/AdvReac Type Severity Reaction Status Date / Time No Known Allergies Allergy Unverified 08/13/23 13:38 Review of Systems Review of Systems: All systems reviewed & are unremarkable except as noted in HPI and below Constitutional: Constitutional: Reports no additional constitutional complaints Eyes: Eyes: Reports no additional eye complaints ENT: Reports system reviewed and no additional complaints, except as documented Cardiovascular: Cardiovascular: Reports no additional cardiovascular complaints, Denies chest pain and Denies dyspnea Respiratory: Respiratory: Reports no additional respiratory complaints, Denies chest congestion, Denies cough and Denies dyspnea Gastrointestinal: Gastrointestinal: Reports no additional gastrointestinal complaints, Denies abdominal pain, Denies nausea and Denies vomiting Musculoskeletal: Musculoskeletal: Reports no additional musculoskeletal complaints Integumentary/Breasts: Skin/Breast: Reports as per HPI Neurologic: Reports system reviewed and no additional complaints, except as documented Psychiatric: Psychiatric: Reports no additional psychiatric complaints Allergic/Immunologic: Allergic/Immunologic: Reports no additional allergic/immunologic complaints [facility] Past Medical History Medical History Actinic keratosis Allergic rhinitis, cause unspecified (01/15/18) Anxiety BPH (benign prostatic hyperplasia) (07/24/17) Cervical spondylosis Chronic low back pain (07/24/17) Essential (primary) hypertension Gastroesophageal reflux disease without esophagitis History of basal cell carcinoma History of prostate cancer IFG (impaired fasting glucose) Lumbar spondylosis Peripheral neuropathy (11/20/17) Peripheral vascular disease (11/13/17) Rotator cuff arthropathy of right shoulder SVT (supraventricular tachycardia) Unspecified osteoarthritis, unspecified site Surgical History Surgical History H/O excision of lamina of cervical vertebra for decompression of spinal cord History of back surgery History of cardiac radiofrequency ablation Status post cervical spinal fusion Status post hernia repair Family History Family History Father Family history of malignant neoplasm of esophagus Social History Social History Social History: Caffeine-coffee Smoking status: Never smoker Second hand tobacco smoke exposure: No Alcohol intake: current Drinks per week: 6 Alcohol use details: Beer Substance use: never Substance use type: does not use Lack of Transportation: No Lack of Food: Never True Current Housing: I Have Housing Concerned About Future Housing: No
[2023-08-29] MEDS: TETANUS/DIPHTHERIA TOXOIDS ADSORB 0.5 ML VIAL (*BKC) IM (15:36)
== END 2023-08-29 16:17 | disposition home or self-care (01) ==
PROVIDERS: Emergency Provider Nurse Practitioner; PCP Family Medicine
DX: S01.111A Laceration without foreign body of right eyelid and periocular area, initial encounter (principal); W01.0XXA Fall on same level from slipping, tripping and stumbling without subsequent striking against object, initial encounter; Z23 Encounter for immunization; N40.0 Benign prostatic hyperplasia without lower urinary tract symptoms; M47.812 Spondylosis without myelopathy or radiculopathy, cervical region; I10 Essential (primary) hypertension; K21.9 Gastro-esophageal reflux disease without esophagitis; M47.816 Spondylosis without myelopathy or radiculopathy, lumbar region; G62.9 Polyneuropathy, unspecified; M19.90 Unspecified osteoarthritis, unspecified site; Z85.828 Personal history of other malignant neoplasm of skin; Z85.46 Personal history of malignant neoplasm of prostate; I73.9 Peripheral vascular disease, unspecified
CPT/HCPCS: 12014; 90471; 90714; 99213; G0463

== ENCOUNTER 2023-08-29 19:54 | Emergency (ER) | payer MEDICARE, SELFPAY ==
--- NOTE | ~2023-08-29 | CT_ITS ---
EXAMINATION: CT brain wo con DATE: 08/29/2023 21:02 INDICATION: Headache. Fall. TECHNIQUE: Computed tomography (CT) of the head was performed without intravenous contrast. The mA wa s adjusted according to patient size. Iterative reconstruction technique was employed. The dose-lengt h product was 605.33 mGy-cm. COMPARISON: None FINDINGS: There is no intracranial hemorrhage, acute infarction, or abnormal intracranial mass lesion . The ventricles are normal in size. There are likely changes of ocular lens replacement surgeries. T here is right periorbital soft tissue swelling. There is mild mucosal thickening in the paranasal sin uses. The mastoid air cells are normal. IMPRESSION: 1. Normal brain. Reviewed, dictated and finalized at location E. CUTTER IMPRESSION: 1. Normal brain.
--- NOTE | ~2023-08-29 | CT_ITS ---
EXAMINATION: CT cervical spine wo con DATE: 08/29/2023 21:03 INDICATION: Neck pain. Fall. TECHNIQUE: Computed tomography (CT) of the cervical spine was performed without intravenous contrast. Automated exposure control and iterative reconstruction technique were employed. The dose-length pro duct was 444.50 mGy-cm. COMPARISON: CT cervical spine 05/30/2023 FINDINGS: There is mild scarring at the lung apices. There is 2 mm anterolisthesis of C4 on C5, C5 on C6, and C7 on T1. Vertebral body heights are normal. There are changes of posterior fusion procedure from C3 to C6 with lateral mass screws. There is moderately decreased disc height at C3-C4 and C4-C5 and severely decreased disc height at C5-C6 and C6-C7. There are laminectomies from C3 to C5. The fo llowing disc levels are specifically discussed: C2-C3: There is severe right and mild left uncovertebral joint osteoarthritis. There is severe right and moderate left facet joint osteoarthritis. There is mild bilateral neural foraminal stenosis. Ther e is no central canal stenosis. C3-C4: There is severe bilateral uncovertebral joint osteoarthritis. There is severe bilateral facet joint osteoarthritis. There is mild bilateral neural foraminal stenosis. There is mild central canal stenosis with posterior decompression. C4-C5: There is severe bilateral uncovertebral joint osteoarthritis. There is severe bilateral facet joint osteoarthritis. There is mild bilateral neural foraminal stenosis. There is mild central canal stenosis with posterior decompression. C5-C6: There is severe bilateral uncovertebral joint osteoarthritis. There is mild right and severe l eft facet joint osteoarthritis. There is mild bilateral neural foraminal stenosis. There is mild cent ral canal stenosis with posterior decompression. C6-C7: There is mild right and severe left uncovertebral joint osteoarthritis. There is mild bilatera l facet joint osteoarthritis. There is mild left neural foraminal stenosis. There is no central canal stenosis. C7-T1: There is no uncovertebral joint osteoarthritis. There is severe bilateral facet joint osteoart hritis. There is mild bilateral neural foraminal stenosis. There is no central canal stenosis. IMPRESSION: 1. No fracture. 2. Severe cervical spondylosis. 3. Posterior fusion procedure from C3 to C6. Reviewed, dictated and finalized at location E. AST CLEANING MACHINE OPERATOR
--- NOTE | ~2023-08-29 | CT_ITS ---
EXAMINATION:CT diagnostic chest wo con DATE: 08/29/2023 21:03 INDICATION: Chest pain. Fall. TECHNIQUE: Computed tomography (CT) of the chest was performed without intravenous contrast. Automate d exposure control and iterative reconstruction technique were employed. The dose-length product (DLP ) was 510.48 mGy-cm. COMPARISON: Chest CT 10/16/2020 FINDINGS: There is mild scarring at the lung apices. There is mild atelectasis bilaterally. No pleura l effusion. There is ectasia of ascending aorta measuring 4.1 cm. The heart size is normal. No perica rdial effusion. The liver demonstrates a nodular surface contour, consistent with cirrhosis. There is severe cervical spondylosis, mild thoracic spondylosis, and severe lumbar spondylosis. IMPRESSION: 1. No posttraumatic findings. 2. Cirrhosis of the liver. Reviewed, dictated and finalized at location E. ASSISTANT
[2023-08-29 19:56] VITALS: BP 131/55; PULSE 65; RESP 20; TEMP 36.9; O2SAT 98
--- NOTE | 2023-08-29 20:48 | ECG_ITS ---
Measurements Intervals [place] Rate: 55 P: 51 [place]: 218 QRS: 0 QRSD: 86 T: 15 QT: 410 QTc: 393 Interpretive Statements SINUS BRADYCARDIA WITH FIRST DEGREE AV BLOCK RSR' IN V1 OR V2, PROBABLY NORMAL VARIANT LOW QRS VOLTAGE IN PRECORDIAL LEADS BORDERLINE ECG COMPARED TO ECG 01/29/2023 14:23:16 SINUS BRADYCARDIA NOW PRESENT FIRST DEGREE AV BLOCK NOW PRESENT Electronically Signed On 08-30-2023 7:07:24 BOTTOMING MACHINE OPERATOR by Gregory Bear D.O.
--- NOTE | 2023-08-29 20:49 | ED.GENADULT ---
HPI - General Adult General Chief complaint: Head Injury Stated complaint: head injury Time Seen by Provider: 08/29/23 20:36 Source: patient Mode of arrival: ambulatory Limitations: no limitations History of Present Illness HPI narrative: This is a 77-year-old male who presents to the ED with chief complaint of a fall that occurred earlier today. Patient reports that he was in his garage working on painting when his foot got caught on something on the ground. He reports that he then fell and hit his head on a floor kika. He went to urgent care but declined transport to the ER because he felt fine and did not want to kidney scans. He was given return precautions; started feeling a little bit of nausea, blurred vision so he came here. Patient also endorses onset of chest pain/pressure since the injury. States this is centrally located and does not seem to have an exertional component. Denies shortness of breath, cough, LOC, numbness, weakness, speech change problems with ambulation. Does have additional complaint of a little bit of neck pain and had surgery several months ago. Related Data Allergies Allergy/AdvReac Type Severity Reaction Status Date / Time No Known Allergies Allergy Unverified 08/13/23 13:38 Review of Systems Review of Systems: All systems as dictated in [facility] Past Medical History Medical History Actinic keratosis Allergic rhinitis, cause unspecified (01/15/18) Anxiety BPH (benign prostatic hyperplasia) (07/24/17) Cervical spondylosis Chronic low back pain (07/24/17) Essential (primary) hypertension Gastroesophageal reflux disease without esophagitis History of basal cell carcinoma History of prostate cancer IFG (impaired fasting glucose) Lumbar spondylosis Peripheral neuropathy (11/20/17) Peripheral vascular disease (11/13/17) Rotator cuff arthropathy of right shoulder SVT (supraventricular tachycardia) Unspecified osteoarthritis, unspecified site Surgical History Surgical History H/O excision of lamina of cervical vertebra for decompression of spinal cord History of back surgery History of cardiac radiofrequency ablation Status post cervical spinal fusion Status post hernia repair Family History Family History Father Family history of malignant neoplasm of esophagus Social History Social History Social History: Caffeine-coffee Smoking status: Never smoker Second hand tobacco smoke exposure: No Alcohol intake: current Drinks per week: 6 Alcohol use details: Beer Substance use: never Substance use type: does not use Lack of Transportation: No Lack of Food: Never True Current Housing: I Have Housing Concerned About Future Housing: No Difficulty Paying Gas/Electric Bills: No Difficulty Paying for Meds: No Currently Unemployed: No Education: High School Diploma/GED Difficulty w/ Childcare or Family Care: No Living arrangements: with family Additional living arrangements comments: LIVES WTIHT SON Occupation/Education: retired Gender identity (if verbalized by the patient): Male Sexual Orientation (if Verbalized by the Patient): Straight or Heterosexual Spiritual care concerns: No Agree to blood products: Yes Exam Narrative: GENERAL: Well-appearing, well-nourished, and in no acute distress. HEAD: Normocephalic, atraumatic. EYES: PERRLA and EOMI. ENT: Nares clear, no rhinorrhea or epistaxis. Mucous membranes moist. Oropharynx without tonsillar hypertrophy exudate or other lesions. NECK: Supple. No adenopathy or masses. CHEST: No respiratory distress. Clear to auscultation. No wheezes rales or rhonchi HEART: Regular rate and rhythm. No murmur heard. Normal peripheral pulses. ABDOMEN: Soft, nontender, nondistended,
[2023-08-29 21:28] LABS: Basophils Absolute Auto 0.1 K/mm3 (0.0-0.1); Basophils Percent Auto 0.7 % (0.2-1.2); Eosinophils Absolute Auto 0.2 K/mm3 (0-0.3); Eosinophils Percent Auto 2.2 % (0-4.4); Hematocrit 37.9 % (42.0-52.0); Hemoglobin 12.7 g/dL (14.0-18.0); Immature Granulocyte Absolute 0.03 K/mm3 (0.00-0.031); Immature Granulocyte Percent A 0.3 % (0-0.5); Lymphocytes Absolute Auto 1.17 K/mm3 (0.9-3.2); Lymphocytes Percent Auto 13.4 % (18.3-44.2); Mean Corpuscular HGB Conc 33.5 g/dl (32-36); Mean Corpuscular Volume 107.4 fl (80-100); Mean Platelet Volume 9.9 fl (7.4-10.4); Monocytes Absolute Auto 1.3 K/mm3 (0.1-0.6); Monocytes Percent Auto 14.4 % (2.6-8.5); Platelet Count Result 136 k/mm3 (150-375); Red Blood Count 3.53 M/mm3 (4.6-6.20); Red Cell Distribution Width 12.5 % (11.5-14.5); White Blood Count 8.7 K/mm3 (4.5-10.0)
[2023-08-29 21:42] LABS: Alanine Aminotransferase 20 U/L (6-50); Albumin Level 4.3 g/dL (3.5-5.1); Alkaline Phosphatase 82 U/L (38-126); Anion Gap 4 mmol/L (8-16); Aspartate Amino Transferase 33 U/L (17-59); Bilirubin,Total 0.5 mg/dL (0.2-1.3); Blood Urea Nitrogen 16 mg/dL (9-20); Calcium 9.4 mg/dL (8.4-10.2); Carbon Dioxide 27 mmol/L (22-30); Chloride 102 mmol/L (98-107); Estimated CRCL calculation 74 ml/min; Estimated Glomerular Filt Rate > 60; Glucose 99 mg/dL (65-110); Potassium 3.9 mmol/L (3.4-5.0); Sodium 133 mmol/L (137-145)
[2023-08-29 21:45] LABS: Anisocytosis 1+ (NORMAL); Platelet Estimate Adequate (Adequate); Stomatocytes 2+ (NORMAL)
[2023-08-29 21:46] LABS: Schistocytes None Seen (NORMAL)
[2023-08-29 21:52] LABS: Troponin I < 0.012 ng/mL (0.000-0.034)
== END 2023-08-29 23:14 | disposition home or self-care (01) ==
PROVIDERS: Emergency Provider Physician Assistant; PCP Family Medicine
DX: S09.90XA Unspecified injury of head, initial encounter (principal); I10 Essential (primary) hypertension; N40.0 Benign prostatic hyperplasia without lower urinary tract symptoms; I73.9 Peripheral vascular disease, unspecified; K21.9 Gastro-esophageal reflux disease without esophagitis; M19.90 Unspecified osteoarthritis, unspecified site; M47.812 Spondylosis without myelopathy or radiculopathy, cervical region; Z85.828 Personal history of other malignant neoplasm of skin; Z85.46 Personal history of malignant neoplasm of prostate; Z98.1 Arthrodesis status; R00.1 Bradycardia, unspecified; I44.0 Atrioventricular block, first degree; K74.60 Unspecified cirrhosis of liver; W01.198A Fall on same level from slipping, tripping and stumbling with subsequent striking against other object, initial encounter
CPT/HCPCS: 36415; 70450; 71250; 72125; 80053; 84484; 85025; 90471; 90714; 93005; 99284

== ENCOUNTER 2023-11-11 19:49 | Inpatient (IN) | payer MEDICARE, SELFPAY ==
[2023-11-11] VITALS (21 sets, daily range): BP systolic 100–141; BP diastolic 61–68; PULSE 69–89; RESP 13–20; TEMP 38.2; O2SAT 91–96
--- NOTE | ~2023-11-11 | CT_ITS ---
EXAMINATION: CT abdomen pelvis w con DATE: 11/11/2023 21:12 INDICATION: abdominal pain TECHNIQUE: Computed tomography (CT) of the abdomen and pelvis was performed with 100 mL Omnipaque-350 intravenous contrast. Automated exposure control and iterative reconstruction technique were employe d. The dose-length product was 711.33 mGy-cm. COMPARISON: 02/12/2017; CT chest 08/29/2023. FINDINGS: Lower thorax: Mitral calcification. Dependent atelectasis/scar. Liver: Nodular liver border. Subcentimeter right lobe hypodensity, likely cyst or hemangioma. Biliary/Gallbladder: Gallbladder is normal. No bile duct dilation. Pancreas: Fatty infiltration. No mass or duct dilation. Spleen: Normal. Adrenals:No mass. Kidneys: No suspicious mass, obstructing stone, or hydronephrosis. GI tract: No small or large bowel dilation. Dilated appendix with irregular wall enhancement, extensi ve surrounding inflammatory change, and multifocal small adjacent fluid density collections without w all enhancement. No adjacent free air. Diverticulosis without diverticulitis. Mesentery/Peritoneum: No ascites, mass, or free air. Retroperitoneum: No mass. Pelvis: Multiple bladder diverticuli. Irregular wall thickening of the urinary bladder near the dome. . Soft Tissues: Soft tissues and body wall unremarkable. Bones: Uncomplicated appearing posterior lumbar fusion hardware. No acute osseous finding. IMPRESSION: Severe acute, complicated appendicitis with findings concerning for wall breakdown, contained perfora tion, right and early multifocal periappendiceal abscess formation. Cirrhosis. Irregular urinary bladder wall thickening, consider referral for cystoscopy. Reviewed, dictated and finalized at location K. TECHNICAL LEAD IMPRESSION: Severe acute, complicated appendicitis with findings concerning for wall breakd own, contained perforation, right and early multifocal periappendiceal abscess formation. Cirrhosis. Irregular urinary bladder wall thickening, consider referral for cystoscopy.
[2023-11-11 20:11] LABS: Basophils Percent Auto 0.3 % (0.2-1.2); Eosinophils Percent Auto 0.1 % (0-4.4); Hematocrit 39.1 % (42.0-52.0); Hemoglobin 12.9 g/dL (14.0-18.0); Immature Granulocyte Absolute 0.06 K/mm3 (0.00-0.031); Immature Granulocyte Percent A 0.6 % (0-0.5); Immature Platelet Fraction Pct 5.8 % (0.9-11.2); Lymphocytes Absolute Auto 0.58 K/mm3 (0.9-3.2); Lymphocytes Percent Auto 5.5 % (18.3-44.2); Mean Platelet Volume 10.3 fl (7.4-10.4); Monocytes Absolute Auto 1.1 K/mm3 (0.1-0.6); Monocytes Percent Auto 10.2 % (2.6-8.5); Neutrophils Absolute Auto 8.8 K/mm3 (1.3-6.7); Neutrophils Percent Auto 83.3 % (45.5-73.1); Platelet Count Result 128 k/mm3 (150-375); Red Blood Count 3.69 M/mm3 (4.6-6.20); Red Cell Distribution Width 11.9 % (11.5-14.5); White Blood Count 10.5 K/mm3 (4.5-10.0)
--- NOTE | 2023-11-11 20:14 | ED.GENADULT ---
HPI - General Adult General Chief complaint: Abdominal Pain Stated complaint: abd pain Time Seen by Provider: 11/11/23 19:51 History of Present Illness HPI narrative: Patient 77-year-old gentleman who presents emergency department chief complaint of abdominal pain. Patient reports he has pain in the right quadrant patient reports that pain has been ongoing for the last 2 days patient reports nausea with this reports that does start having some diarrhea with it. Patient reports symptoms are not improved by anything and not worsened by anything. Related Data Allergies Allergy/AdvReac Type Severity Reaction Status Date / Time No Known Allergies Allergy Unverified 10/02/23 13:46 Review of Systems Review of Systems: A 10 system review of systems was completed on the patient and is negative except for what is stated in the HPI. Nursing and ancillary documentation was reviewed. [facility] Past Medical History Medical History Actinic keratosis Allergic rhinitis, cause unspecified (01/15/18) Anxiety BPH (benign prostatic hyperplasia) (07/24/17) Cervical spondylosis Chronic low back pain (07/24/17) Essential (primary) hypertension Gastroesophageal reflux disease without esophagitis History of basal cell carcinoma History of prostate cancer IFG (impaired fasting glucose) Lumbar spondylosis Peripheral neuropathy (11/20/17) Peripheral vascular disease (11/13/17) Rotator cuff arthropathy of right shoulder SVT (supraventricular tachycardia) Unspecified osteoarthritis, unspecified site Surgical History Surgical History H/O excision of lamina of cervical vertebra for decompression of spinal cord History of back surgery History of cardiac radiofrequency ablation Status post cervical spinal fusion Status post hernia repair Family History Family History Father Family history of malignant neoplasm of esophagus Social History Social History Social History: Caffeine-coffee Smoking status: Never smoker Second hand tobacco smoke exposure: No Alcohol intake: current Drinks per week: 6 Alcohol use details: Beer Substance use: never Substance use type: does not use Lack of Transportation: No Lack of Food: Never True Current Housing: I Have Housing Concerned About Future Housing: No Difficulty Paying Gas/Electric Bills: No Difficulty Paying for Meds: No Currently Unemployed: No Education: High School Diploma/GED Difficulty w/ Childcare or Family Care: No Living arrangements: with family Additional living arrangements comments: LIVES WTIHT SON Occupation/Education: retired Gender identity (if verbalized by the patient): Male Sexual Orientation (if Verbalized by the Patient): Straight or Heterosexual Spiritual care concerns: No Agree to blood products: Yes Exam Narrative: GENERAL: Well-appearing, well-nourished, and in no acute distress. HEAD: Normocephalic, atraumatic. EYES: PERRLA and EOMI. ENT: Nares clear, no rhinorrhea or epistaxis. Mucous membranes moist. NECK: Supple. CHEST: Clear to auscultation. No respiratory distress. HEART: Regular rate and rhythm. No murmur heard. Normal peripheral pulses. ABDOMEN: Soft, diffusely tender, nondistended, normal active bowel sounds. EXTREMITIES: Normal range of motion. No edema. SKIN: Warm, dry, no rash. NEURO: No focal deficits. Alert and oriented x3. PSYCH: Normal mood and affect. Course Vital Signs Vital signs: Vital Signs Temperature 38.2 C H 11/11/23 19:48 Pulse Rate 78 11/11/23 19:48 Respiratory Rate 16 11/11/23 19:48 Blood Pressure 140/66 11/11/23 19:48 Pulse Oximetry 94 11/11/23 19:48 Oxygen Delivery Room Air 11/11/23 19:48 Temperature 38.2 C
[2023-11-11 20:21] LABS: Alanine Aminotransferase 18 U/L (6-50); Albumin Level 4.3 g/dL (3.5-5.1); Alkaline Phosphatase 92 U/L (38-126); Anion Gap 6 mmol/L (8-16); Aspartate Amino Transferase 29 U/L (17-59); Bilirubin,Total 1.1 mg/dL (0.2-1.3); Blood Urea Nitrogen 11 mg/dL (9-20); Calcium 9.2 mg/dL (8.4-10.2); Carbon Dioxide 29 mmol/L (22-30); Chloride 100 mmol/L (98-107); Estimated CRCL calculation 61 ml/min; Estimated Glomerular Filt Rate > 60; Glucose 126 mg/dL (65-110); Lipase 43 U/L (23-300); Potassium 3.5 mmol/L (3.4-5.0); Sodium 135 mmol/L (137-145)
[2023-11-11] MEDS: SODIUM CHLORIDE 0.9% IV 1,000 ML 999 ML IV CONT (20:26)
[2023-11-11] MEDS: ONDANSETRON INJ 4 MG/2 ML VIAL IV PUSH (20:27)
[2023-11-11] MEDS: MORPHINE SULFATE (*CRX) 4 MG/ML INJ 2 MG IV PUSH (20:35)
[2023-11-11 20:47] LABS: Lactic Acid Reflex 1.2 mmol/L (0.7-2.0)
[2023-11-11 21:09] LABS: Influenza A QL RT-PCR Negative (Negative); Influenza B QL RT-PCR Negative (Negative); SARS-CoV-2 RNA PCR Negative (Negative)
[2023-11-11] MEDS: HYDROmorphone HCL INJ (*CRX) 1 MG/ML SYR 0.5 MG IV PUSH ×2 (21:45→23:39)
[2023-11-11] MEDS: ACETAMINOPHEN 500 MG TABLET 1000 MG PO (21:53)
[2023-11-11 21:54] LABS: Appearance Urine Clear (Clear); Bacteria Urine None Seen /hpf; Bilirubin Urine Negative (Negative); Blood Urine 1+ (Negative); Color Urine Yellow (Yellow); Glucose Urine UA Negative (Negative); Ketones Urine 1+ mg/dL (Negative); Leukocyte Esterase Ur Negative LEU/UL (Negative); Nitrate Urine Negative (Negative); Non Pathogenic Casts 0-2; Protein Urine Trace mg/dL (Negative); Squamous Epithelial Cell Urine None seen /hpf (Few); WBC Urine 0-5 /hpf; pH Urine 6.5 (5.0-9.0)
[2023-11-11] MEDS: PIPERACILLN/TAZ 3.375GM/NS50ML 3.375 GM/50 ML BAG IVPB (21:56)
[2023-11-11 22:07] LABS: Specific Grav Ur 1.037 (1.001-1.035)
[2023-11-11 22:08] LABS: Add Urine Microscopic? YES
[2023-11-11] MEDS: metroNIDAZOLE 500 MG/ISO 100ML 500 MG/100 ML BAG 100 MG IVPB (22:27)
[2023-11-12] VITALS (12 sets, daily range): BP systolic 100–117; BP diastolic 46–59; PULSE 62–79; RESP 15–23; TEMP 36.8–38.3; O2SAT 90–97; BMI 26.2
--- NOTE | 2023-11-12 00:48 | ADMGEN ---
This patient, Rodriguez Costa, was admitted to 2 Medical Room 240-01. Patient/family oriented to hospital policies and general routines including ID bracelet, bed and alarms, visiting hours, pain management, procedures, bathroom and other care routines, personal items, smoking policy, room service/diet, and visiting hours. Information on how to activate the Rapid Response Team has been discussed. Patient/Family are encouraged to report perceived risks to care and to ask questions if they do not understand what they are told or what they should do.
[2023-11-12] MEDS: SODIUM CHLORIDE 0.9% IV 1,000 ML 125 ML IV CONT ×2 (01:23→08:54)
[2023-11-12] MEDS: HYDROmorphone HCL INJ (*CRX) 1 MG/ML SYR 0.5 MG IV PUSH ×6 (02:39→21:54)
[2023-11-12] MEDS: ONDANSETRON INJ 4 MG/2 ML VIAL IV PUSH (04:38)
[2023-11-12] MEDS: ACETAMINOPHEN 325 MG TABLET 650 MG PO (04:46)
[2023-11-12 05:28] LABS: Basophils Percent Auto 0.2 % (0.2-1.2); Eosinophils Absolute Auto 0.1 K/mm3 (0-0.3); Eosinophils Percent Auto 0.7 % (0-4.4); Hematocrit 34.6 % (42.0-52.0); Hemoglobin 11.4 g/dL (14.0-18.0); Immature Granulocyte Absolute 0.07 K/mm3 (0.00-0.031); Immature Granulocyte Percent A 0.6 % (0-0.5); Lymphocytes Absolute Auto 0.76 K/mm3 (0.9-3.2); Lymphocytes Percent Auto 6.3 % (18.3-44.2); Mean Corpuscular HGB Conc 32.9 g/dl (32-36); Mean Corpuscular Hemoglobin 35.5 pg (26-34); Mean Corpuscular Volume 107.8 fl (80-100); Mean Platelet Volume 10.7 fl (7.4-10.4); Monocytes Absolute Auto 0.9 K/mm3 (0.1-0.6); Monocytes Percent Auto 7.3 % (2.6-8.5); Neutrophils Absolute Auto 10.3 K/mm3 (1.3-6.7); Neutrophils Percent Auto 84.9 % (45.5-73.1); Platelet Count Result 103 k/mm3 (150-375); Red Blood Count 3.21 M/mm3 (4.6-6.20); Red Cell Distribution Width 12.1 % (11.5-14.5); White Blood Count 12.1 K/mm3 (4.5-10.0)
[2023-11-12 05:30] LABS: Anion Gap 7 mmol/L (8-16); Blood Urea Nitrogen 10 mg/dL (9-20); Calcium 8.4 mg/dL (8.4-10.2); Carbon Dioxide 24 mmol/L (22-30); Chloride 103 mmol/L (98-107); Estimated CRCL calculation 61 ml/min; Estimated Glomerular Filt Rate > 60; Glucose 103 mg/dL (65-110); Potassium 3.6 mmol/L (3.4-5.0); Sodium 134 mmol/L (137-145)
[2023-11-12] MEDS: PIPERACILLN/TAZ 3.375GM/NS50ML 3.375 GM/50 ML BAG IVPB ×4 (06:06→23:58)
[2023-11-12] MEDS: metroNIDAZOLE 500 MG/ISO 100ML 500 MG/100 ML BAG 100 MG IVPB ×3 (06:58→21:56)
[2023-11-12 07:21] LABS: Anisocytosis 1+ (NORMAL)
[2023-11-12 07:22] LABS: Schistocytes None Seen (NORMAL); Smudge Cells PRESENT
--- NOTE | 2023-11-12 07:45 | PM.IMHP ---
H&P: HPI History of Present Illness Date/Time: 11/12/23 02:50 Chief Complaint: Lower abdominal pain Narrative: 77-year-old male with past medical history of SVT status post ablation, peripheral neuropathy, prior inguinal hernia repair and prostate cancer who presented to the ER with abdominal pain since Sunday (11/08). He reports the pain initially started in the right lower quadrant and then progressed to where it was spanning both lower quadrants. At its worst pain was 8/10 intensity and currently down to 4/10 in intensity. Pain is constant and stabbing. It is worse with movement and walking. He usually has a bowel movement every couple of days but had not had bowel movement in 3 days and decided to take a dose of laxative. After taking laxatives he did pass 1 formed ball of stool and followed by diarrhea his stool with brown in color without mucus. He denies any urinary symptoms besides his usual weak stream due to history of prostate surgery. He has had decreased urine output for the last 12 or so hours prior to coming to the ER. He is having some dry heaves and has extremely poor appetite since onset of symptoms. He checked his temperature just before calling EMS when he noted that he had a fever over 101 it prompted him to come into the ER for evaluation. In the ER CT scan demonstrated severe acute complicated appendicitis with findings for concern of wall breakdown and contained perforation and early multifocal periappendiceal abscess formation. Changes consistent with cirrhosis also noted. The patient did report a prior history of hepatitis C that was previously treated over 10 years ago. He reports that he has been passing gas. Review of Systems Review of Systems: 12 systems were reviewed with pertinent positives and negatives per HPI. Except as documented in the HPI, all other systems were reviewed and are negative. PENDING SALE TO [facility] Past Medical History Medical History (Updated 11/12/23 @ 08:17 by Sho Waldron DO) Actinic keratosis Allergic rhinitis, cause unspecified (01/15/18) Anxiety BPH (benign prostatic hyperplasia) (07/24/17) Cardiac murmur Patient reports he has had it since childhood Cervical spondylosis Chronic low back pain (07/24/17) Essential (primary) hypertension Gastroesophageal reflux disease without esophagitis Hepatic cirrhosis due to chronic hepatitis C infection With prior treatment and resolution History of basal cell carcinoma History of prostate cancer IFG (impaired fasting glucose) Lumbar spondylosis Overactive bladder Peripheral neuropathy (11/20/17) Peripheral vascular disease (11/13/17) Rotator cuff arthropathy of right shoulder SVT (supraventricular tachycardia) Status post ablation Unspecified osteoarthritis, unspecified site Surgical History Surgical History (Updated 11/12/23 @ 08:11 by Sho Waldron DO) H/O excision of lamina of cervical vertebra for decompression of spinal cord History of back surgery L4-L5 History of cardiac radiofrequency ablation SVT Status post cataract extraction of both eyes with insertion of intraocular lens Status post cervical spinal fusion Status post hernia repair Bilateral inguinal hernia Family History Family History Father Family history of malignant neoplasm of esophagus Mother Acute myocardial infarction Social History Social History (Updated 11/12/23 @ 08:10 by Sho Waldron DO) Social History: He reports that he has been since October 2021. He and his raised 6 children. They were for 50 years prior to her . He smoked from approximately age [age] per to quitting. 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 He then continued to work part-time until he had his most recent back surgery. Code status: DNR/DNI per patient request. Healthcare power
[2023-11-12] MEDS: IBUPROFEN IV 400 MG in SODIUM CHLORIDE 0.9% IV 100 ML 208 MG IVPB (08:54)
--- NOTE | 2023-11-12 10:49 | PM.IMPN ---
Progress Note: A&P Assessment and Plan (1) Acute perforated appendicitis: Code(s): K35.32 - Acute appendicitis with perforation, localized peritonitis, and gangrene, without abscess Status: Acute Assessment and Plan: Patient meets sepsis criteria with fever, leukocytosis in the setting of acute perforated appendicitis with associated abscess. Patient has peritoneal signs. Patient has been started on antibiotic therapy with Zosyn. General surgery was consulted NPO until evaluated by surgery. Patient is having recurrent fevers. Will place patient on IV ibuprofen as needed. Zofran PRN for nausea. (2) Acute appendicitis with perforation and peritoneal abscess: Code(s): K35.33 - Acute appendicitis with perforation, localized peritonitis, and gangrene, with abscess Status: Acute Assessment and Plan: See #1 (3) Sepsis: Qualifiers: Sepsis type: sepsis due to unspecified organism Sepsis acute organ dysfunction status: without acute organ dysfunction Qualified Code(s): A41.9 - Sepsis, unspecified organism Code(s): A41.9 - Sepsis, unspecified organism Status: Acute Assessment and Plan: See #1 (4) Dehydration: Code(s): E86.0 - Dehydration Status: Acute Assessment and Plan: Continue IV fluid hydration. Subjective Date/time seen: 11/12/23 10:49 Interval history: patient is in a pretty significant amount of pain. Waiting for surgery evaluation at this time. Patient will likely need appendectomy due to severity of symptoms and disease. Patient states that he has had fevers and nausea associated with his right lower quadrant pain. Patient's abdomen is distended and hard and very tender to the touch. Exam Narrative: GENERAL: Comfortable, no acute distress HENMT: moist mucous membranes EYES: EOM intact b/l NECK: no lymphadenopathy RESPIRATORY: clear to auscultation CARDIO: RRR GI: Hard, distended, extremely tender, hypoactive bowel sounds SKIN: no rashes EXTREMITIES: no edema, redness or tenderness Objective Data Vital Signs Vital Signs: Vital Signs - 24 hr 11/11/23 19:48 11/11/23 20:08 11/11/23 20:15 Temperature 100.7 F H Pulse Rate 78 70 69 Respiratory Rate 16 15 15 Blood Pressure 140/66 Pulse Oximetry 94 92 94 Oxygen Delivery Room Air 11/11/23 20:37 11/11/23 20:45 11/11/23 21:00 Temperature Pulse Rate 89 87 84 Respiratory Rate Blood Pressure Pulse Oximetry 94 95 Oxygen Delivery 11/11/23 21:17 11/11/23 21:18 11/11/23 21:30 Temperature Pulse Rate Respiratory Rate Blood Pressure 141/68 H Pulse Oximetry 94 96 94 Oxygen Delivery 11/11/23 21:31 11/11/23 21:51 11/11/23 22:02 Temperature Pulse Rate 87 86 Respiratory Rate 15 17 Blood Pressure 127/66 Pulse Oximetry 94 Oxygen Delivery 11/11/23 22:15 11/11/23 22:32 11/11/23 22:46 Temperature Pulse Rate 85 79 75 Respiratory Rate 15 16 20 Blood Pressure Pulse Oximetry 91 Oxygen Delivery 11/11/23 23:00 11/11/23 23:01 11/11/23 23:02 Temperature Pulse Rate 77 81 73 Respiratory Rate 19 Blood Pressure Pulse Oximetry Oxygen Delivery 11/11/23 23:22 11/11/23 23:41 11/11/23 23:45 Temperature Pulse Rate 74 69 70 Respiratory Rate 17 13 16 Blood Pressure 100/61 Pulse Oximetry 96 Oxygen Delivery 11/12/23 01:03 11/12/23 00:35 11/12/23 04:46 Temperature 98.8 F 100.9 F H Pulse Rate 68 Respiratory Rate 18 Blood Pressure 107/46 L Pulse Oximetry 95 Oxygen Delivery Room Air 11/12/23 05:29 11/12/23 05:46 11/12/23 08:00 Temperature 100.9 F H 100.9 F H Pulse Rate 70 Respiratory Rate 17 Blood Pressure 100/49 L Pulse Oximetry 93 Oxygen Delivery Room Air Intake/Output Intake/Output: Intake & Output 11/09/23 11/10/23 11/11/23 11/12/23 23:59 23:59 23:59 23:59 Intake Total 1150 1204 Output Total 200
--- NOTE | 2023-11-12 11:30 | PM.CNGS ---
Assessment and Plan Assessment and plan (1) Acute appendicitis with generalized peritonitis, with perforation and abscess: Code(s): K35.211 - Acute appendicitis with generalized peritonitis, with perforation and abscess Status: Acute Assessment and Plan: Patient presents with acute perforated appendicitis with small periappendiceal abscesses that are not amenable to drainage. His white blood cell count is up slightly today and he is febrile. He has significant abdominal tenderness with signs of generalized peritonitis on exam. Discussed the case with Dr. Moore, who recommends to proceed with emergent laparoscopic appendectomy, possible conversion to open appendectomy today under general anesthesia. Description of the procedure, risks, benefits, alternatives, and expected recovery were discussed. We discussed that the risks of converting to an open procedure are significantly increased due to the inflammation and perforation. We also discussed that postoperatively, he will need to stay admitted for IV antibiotics for at least another 24 hours and possibly longer depending on how he progresses. The patient understands and agrees to proceed. Continue NPO, IV fluids, and IV antibiotics. (2) Sepsis: Qualifiers: Sepsis type: sepsis due to unspecified organism Sepsis acute organ dysfunction status: without acute organ dysfunction Qualified Code(s): A41.9 - Sepsis, unspecified organism Code(s): A41.9 - Sepsis, unspecified organism Status: Acute Assessment and Plan: Secondary to acute perforated appendicitis with abscess. He is febrile this morning with his white blood cell count up today. He continues to have severe abdominal pain with peritoneal signs on exam. Plan to go to the OR for urgent appendectomy as mentioned above. Continue IV fluids and IV Zosyn and metronidazole. Blood cultures pending. (3) H/O cirrhosis: Code(s): Z87.19 - Personal history of other diseases of the digestive system Status: Acute Plan I have discussed the patient's case and plan of care with Dr. Moore. Thank you for allowing us to see the patient in consultation and we will continue to follow along with you. History of Present Illness Consult details Consult date: 11/12/23 Reason for consult: other (Acute perforated appendicitis with abscess) Requesting physician: Marty Potts MD Narrative: This is a 77-year-old man who we have been asked to see in surgical consultation for acute perforated appendicitis. He reports noticing right lower quadrant abdominal pain starting 3 days ago. After about 24 hours, he fell his abdominal pain had improved. He thought initially this could be gas pains as he was constipated and had not had a bowel movement for a few days. Then, he took [id number] laxatives and had multiple bowel movements. His pain then became more severe yesterday and radiated across his entire lower abdomen. He also reports a fever of 101? F. His pain was so severe, that he had his son call EMS to take him into the ER for evaluation. In the ER, his white blood cell count was 10,500. CT scan of the abdomen and pelvis showed severe acute complicated appendicitis with findings concerning for wall breakdown, contained perforation, and multifocal periappendiceal abscess formation. Also noted is a nodular liver consistent with cirrhosis, and irregular urinary bladder wall thickening. The patient was admitted to the hospitalist service and started on IV metronidazole and Zosyn. The patient is now seen on the medical floor. He reports having uncontrolled abdominal pain this morning as he was not yet due for a dose of IV Dilaudid and his pain was at a 10/10. He reports almost passing out due to the severity of his pain. His pain was radiating up to his mid chest. This improved after receiving the Dilaudid, but he is still severely tender on exam. He has a history of prostate cancer status post radiation the
--- NOTE | 2023-11-12 15:33 | ECG_ITS ---
Measurements Intervals [place] Rate: 63 P: 56 [place]: 200 QRS: 16 QRSD: 86 T: 27 QT: 389 QTc: 401 Interpretive Statements SINUS RHYTHM NORMAL ECG COMPARED TO ECG 08/29/2023 21:12:27 SINUS RHYTHM NOW PRESENT Electronically Signed On 11-12-2023 17:49:48 ENGINEERING PROJECT MANAGER by Gregory Bear D.O.
--- NOTE | 2023-11-12 15:34 | WPDHPUPDATE1 ---
History and Physical Update Update Date/Time: 11/12/23 15:34 History and Physical has been reviewed, including an updated exam of the patient. There are NO changes in the patient's condition. Risks, benefits, and alternatives have been discussed and questions answered. Patient agrees to proceed with procedure.
[2023-11-12] MEDS: LACTATED RINGERS 1,000 ML 30 ML IV CONT ×2 (15:40→17:54)
[2023-11-12] MEDS: fentaNYL CITRATE INJ (*CRX) 100 MCG/2 ML VIAL 25 MCG IV PUSH ×8 (15:40→18:32)
--- NOTE | 2023-11-12 15:47 | WPDANESEPPF ---
Anes - Initial Pre Proc Eval Procedure: Operation Date: 11/12/23 15:30 Proposed Procedures p Laparoscopic Appendectomy, Possible Open - Dustin Moore MD Date/Time: 11/12/23 15:47 Surgeon: Oscar Pre Op Diagnosis: Perforated Appendicitis with Abscess Patient Data Age: 77 Gender: M Height: 1.7 m Weight: 76.1 kg Last Vital Signs Temp 38.3 C H 11/12/23 05:46 Pulse 70 11/12/23 05:29 Resp 17 11/12/23 05:29 BP 112/52 L 11/12/23 12:32 Pulse Ox 93 11/12/23 05:29 O2 Del Method Room Air 11/12/23 08:00 Allergies Allergy/AdvReac Type Severity Reaction Status Date / Time No Known Allergies Allergy Unverified 10/02/23 13:46 Home Medications Medication Instructions Recorded Confirmed Type doxazosin 8 mg tablet 8 mg PO DAILY #90 tabs 10/19/23 11/12/23 Rx Laboratory Tests 11/11/23 11/11/23 11/11/23 19:59 20:25 21:36 WBC 10.5 H K/mm3 (4.5-10.0) RBC 3.69 L M/mm3 (4.6-6.20) Hgb 12.9 L g/dL (14.0-18.0) Hct 39.1 L % (42.0-52.0) MCV 106.0 H fl (80-100) MCH 35.0 H pg (26-34) MCHC 33.0 g/dl (32-36) RDW 11.9 % (11.5-14.5) Plt Count 128 L k/mm3 (150-375) MPV 10.3 fl (7.4-10.4) Immature Gran % (Auto) 0.6 H % (0-0.5) Neut % (Auto) 83.3 H % (45.5-73.1) Lymph % (Auto) 5.5 L % (18.3-44.2) [place] % (Auto) 10.2 H % (2.6-8.5) Eos % (Auto) 0.1 % (0-4.4) Baso % (Auto) 0.3 % (0.2-1.2) Lymph # (Auto) 0.58 L K/mm3 (0.9-3.2) [place] # (Auto) 1.1 H K/mm3 (0.1-0.6) Eos # (Auto) 0.0 K/mm3 (0-0.3) Baso # (Auto) 0.0 K/mm3 (0.0-0.1) Abs Immat Gran (auto) 0.06 H K/mm3 (0.00-0.031) Absolute Neuts (auto) 8.8 H K/mm3 (1.3-6.7) Absolute Nucleated RBC 0.0 K/mm3 (0.0-0.012) Nucleated RBC % 0.0 % (0.0-0.2) Smudge Cells Platelet Estimate % Immature Plt Fraction 5.8 % (0.9-11.2) Anisocytosis Schistocytes Sodium 135 L mmol/L (137-145) Potassium 3.5 mmol/L (3.4-5.0) Chloride 100 mmol/L (98-107) Carbon Dioxide 29 mmol/L (22-30) Anion Gap 6 L mmol/L (8-16) BUN 11 D mg/dL (9-20) Creatinine 0.80 mg/dL (0.7-1.3) Estim Creat Clear Calc 61 ml/min Estimated GFR > 60 (59 - ) Glucose 126 H mg/dL (65-110) Lactic Acid 1.2 mmol/L (0.7-2.0) Calcium 9.2 mg/dL (8.4-10.2) Total Bilirubin 1.1 mg/dL (0.2-1.3) AST 29 U/L (17-59) ALT 18 U/L (6-50) Alkaline Phosphatase 92 U/L (38-126) Total Protein 8.0 g/dL (6.3-8.2) Albumin 4.3 g/dL (3.5-5.1) Lipase 43 U/L (23-300) Urine Color Yellow (Yellow) Urine Appearance Clear (Clear) Urine pH 6.5 (5.0-9.0) Ur Specific [place] 1.037 H (1.001-1.035) Urine Protein Trace mg/dL (Negative) Urine Glucose (UA) Negative mg/dL (Negative) Urine Ketones 1+ H mg/dL (Negative) Ur Blood (Man) 1+ H (Negative) Urine Nitrate Negative (Negative) Urine Bilirubin Negative (Negative) Urine Urobilinogen 1.0 mg/dL (<2.0) Leukocyte Esterase Rfl Negative BRITTANY/UL (Negative) Urine RBC 11-20 H /hpf (0-2) Urine WBC 0-5 /hpf Ur Squamous Epith Cells None seen /hpf (Few) Urine Bacteria None seen /hpf Urine Casts 0-2 Influenza A (RT-PCR) Negative (Negative) Influenza B (RT-PCR) Negative (Negative) SARS-CoV-2 RNA (RT-PCR) Negative (Negative) 11/12/23 04:21 WBC 12.1 H K/mm3 (4.5-10.0) RBC 3.21 L M/mm3 (4.6-6.20) Hgb 1
[2023-11-12] MEDS: BUPivacaine HCL 0.5% PF 30 ML VIAL INFILTRATE (16:16)
[2023-11-12] MEDS: LIDO 1%/EPINEPHRINE 1:100,000 50 ML VIAL 30 ML INFILTRATE (16:17)
--- NOTE | 2023-11-12 17:57 | W.PM.PROC2 ---
Procedure Note - Detailed Date of Procedure 11/12/23 Pre-op Diagnosis Acute appendicitis Post-op Diagnosis Other (Gangrenous appendicitis) Procedure Performed Laparoscopic appendectomy Surgeon Dustin Moore MD Cut Out Worker Harpreet Jung, [facility] Anesthesia General Indications Patient is a 77-year-old gentleman who admitted to the hospital last evening with a 2 day history of worsening right lower quadrant abdominal pain. Had elevated white blood cell count of 10,[address] scan abdomen pelvis showed a acutely inflamed appendix with phlegmon in the right lower quadrant with likely disruption of the wall of the appendix. Findings Patient had acute appendicitis with gangrenous changes at the tip of the appendix. There was inflammatory changes there the cecum but no obvious collection of fluid or pus. The appendiceal base was viable. Description of Procedure After informed consent was obtained patient brought to the operating room was placed supine position and general endotracheal anesthesia was administered. A [place] catheter was placed decompress the bladder. The abdomen was then prepped and draped in usual sterile fashion. A time-out was then performed correctly identifying the patient as well as procedure to be performed. He was already on scheduled IV antibiotics. I 1st started by entering the abdomen left upper quadrant utilizing a 5mm Optiview port. There was a clear view of the lower quadrant the abdomen so I placed additional trocar ports included a 12mm periumbilical trocar port and 2 more 5mm trocar ports in the suprapubic region and the right lower quadrant. Working through these ports I was able to dissect the terminal ileum off of the cecum and inflammatory mass and identified the appendix. Tip of the appendix appeared to be gangrenous. There was inflammatory changes in the fat around the cecum and the appendix large abscess. There was no feculent material in the area. The whole appendix was inflamed but the base of the appendix was certainly viable. I then proceeded to hold the appendix up and then made a defect through the mesoappendix with a [place] dissector. Once this was done I then used a the 5mm Endo-MARCELL stapler to divide the appendix flush with the cecum. A vascular reload to the Endo-MARCELL stapler was then used to divide the mesoappendix. The appendix was then placed into an Endo-Catch bag and brought out through the periumbilical trocar port site. It was passed off table sent to pathology for examination. I then proceeded to irrigate out the right lower quadrant the abdomen and the pelvis was approximately 2 to 3 L of warm saline solution. After all the irrigation the fluid that was removed was clear. I then placed a 15 [place] round Geoff drain in the right lower quadrant the abdomen. The drain went down into the pelvis and curled back cephalad with the tip of the drain in the area of the cecum and the staple lines. Hemostasis was good. I then removed all the trocar ports under visualization all port sites were hemostatic. I then secured the drain at the level the 3-0 nylon suture. I then closed the 12mm periumbilical trocar port fascial defect utilizing 0 Vicryl sutures. Skin edges in all the port sites were then approximated utilizing a running subcuticular 4 Monocryl suture. The incisions were then cleaned and then skin glue was applied. The drain was placed to act urinate bulb suction. A drain dressing was placed. The patient tolerated the procedure well no complications. All sponges, needles, and instrument counts were correct at the end procedure. EBL was _20__cc. The patient was awakened and taken to recovery in stable and satisfactory condition. Implants None Estimated Blood Loss 20 Urine Output 200 Drains Yes (15 [place] round Geoff drain in the pelvis and right lower quadrant) Packing No Pathology Yes (Appendix sent to pathology) Complications No immediate complications Condition Stable Disposition PACU A
[2023-11-13] MEDS: SODIUM CHLORIDE 0.9% IV 1,000 ML 125 ML IV CONT (01:35)
[2023-11-13] MEDS: HYDROmorphone HCL INJ (*CRX) 1 MG/ML SYR 0.5 MG IV PUSH ×3 (01:45→12:07)
[2023-11-13] MEDS: IBUPROFEN IV 400 MG in SODIUM CHLORIDE 0.9% IV 100 ML 208 MG IVPB ×2 (02:17→11:59)
[2023-11-13 02:46] VITALS: BP 109/61; PULSE 54; RESP 20; TEMP 37.1; O2SAT 92
[2023-11-13] MEDS: PIPERACILLN/TAZ 3.375GM/NS50ML 3.375 GM/50 ML BAG IVPB ×4 (05:21→23:55)
[2023-11-13 05:40] LABS: Basophils Percent Auto 0.1 % (0.2-1.2); Hematocrit 33.7 % (42.0-52.0); Hemoglobin 10.9 g/dL (14.0-18.0); Immature Granulocyte Absolute 0.04 K/mm3 (0.00-0.031); Immature Granulocyte Percent A 0.4 % (0-0.5); Immature Platelet Fraction Pct 7.2 % (0.9-11.2); Lymphocytes Absolute Auto 0.32 K/mm3 (0.9-3.2); Mean Corpuscular HGB Conc 32.3 g/dl (32-36); Mean Corpuscular Hemoglobin 35.6 pg (26-34); Mean Corpuscular Volume 110.1 fl (80-100); Mean Platelet Volume 10.8 fl (7.4-10.4); Monocytes Absolute Auto 0.5 K/mm3 (0.1-0.6); Monocytes Percent Auto 4.5 % (2.6-8.5); Neutrophils Absolute Auto 9.7 K/mm3 (1.3-6.7); Platelet Count Result 95 k/mm3 (150-375); Red Blood Count 3.06 M/mm3 (4.6-6.20); Red Cell Distribution Width 12.1 % (11.5-14.5); White Blood Count 10.5 K/mm3 (4.5-10.0)
[2023-11-13 05:52] LABS: Alanine Aminotransferase 16 U/L (6-50); Albumin Level 3.3 g/dL (3.5-5.1); Alkaline Phosphatase 70 U/L (38-126); Anion Gap 8 mmol/L (8-16); Aspartate Amino Transferase 38 U/L (17-59); Bilirubin,Total 0.8 mg/dL (0.2-1.3); Blood Urea Nitrogen 14 mg/dL (9-20); Calcium 7.7 mg/dL (8.4-10.2); Carbon Dioxide 23 mmol/L (22-30); Chloride 105 mmol/L (98-107); Estimated CRCL calculation 55 ml/min; Estimated Glomerular Filt Rate > 60; Glucose 117 mg/dL (65-110); Potassium 4.4 mmol/L (3.4-5.0); Sodium 136 mmol/L (137-145)
[2023-11-13] MEDS: metroNIDAZOLE 500 MG/ISO 100ML 500 MG/100 ML BAG 100 MG IVPB ×3 (06:07→22:24)
--- NOTE | 2023-11-13 08:50 | WPDANESPN ---
Anes - Prog Note Post-Op Date/Time: 11/13/23 08:50 Cardiovascular status: normal Respiratory status: normal Airway patency: baseline Mental status: baseline Post-Op hydration status: normal Vital Signs: Last Vital Signs Temp 37.1 C 11/13/23 02:46 Pulse 54 L 11/13/23 02:46 Resp 20 11/13/23 02:46 BP 109/61 11/13/23 02:46 Pulse Ox 92 11/13/23 02:46 O2 Del Method Room Air 11/13/23 08:00 O2 Flow Rate 2 11/12/23 18:37 Pain Score (VAS): 12/01 I/O: Intake & Output 11/12/23 11/13/23 11/13/23 23:59 07:59 15:59 Intake Total 2350 594 Output Total 610 130 Balance 1740 464 Laboratory Tests 11/13/23 04:57 11/13/23 04:57 11/13/23 04:57 WBC 10.5 H RBC 3.06 L Hgb 10.9 L Hct 33.7 L MCV 110.1 H MCH 35.6 H MCHC 32.3 RDW 12.1 Plt Count 95 L MPV 10.8 H Immature Gran % (Auto) 0.4 Neut % (Auto) 92.0 H Lymph % (Auto) 3.0 L [place] % (Auto) 4.5 Eos % (Auto) 0.0 Baso % (Auto) 0.1 L Lymph # (Auto) 0.32 L [place] # (Auto) 0.5 Eos # (Auto) 0.0 Baso # (Auto) 0.0 Abs Immat Gran (auto) 0.04 H Absolute Neuts (auto) 9.7 H Absolute Nucleated RBC 0.0 Nucleated RBC % 0.0 % Immature Plt Fraction 7.2 Sodium 136 L Potassium 4.4 Chloride 105 Carbon Dioxide 23 Anion Gap 8 BUN 14 Creatinine 0.90 Estim Creat Clear Calc 55 Estimated GFR > 60 Glucose 117 H Calcium 7.7 L Total Bilirubin 0.8 AST 38 ALT 16 Alkaline Phosphatase 70 Total Protein 6.0 L Albumin 3.3 L Microbiology 11/11/23 21:56 Blood Blood Culture - Preliminary 11/11/23 21:56 Blood Blood Culture - Preliminary Post-procedural complaints: none Patient Feedback: Patient satisfied with anesthetic care.
[2023-11-13] MEDS: ONDANSETRON INJ 4 MG/2 ML VIAL IV PUSH (09:39)
[2023-11-13 09:45] VITALS: BP 105/55; PULSE 60; RESP 16; TEMP 36.6; O2SAT 94
--- NOTE | 2023-11-13 12:32 | PM.PNGS ---
Progress Note: A&P Assessment and Plan (1) Acute appendicitis with generalized peritonitis, with perforation and abscess: Code(s): K35.211 - Acute appendicitis with generalized peritonitis, with perforation and abscess Status: Acute Assessment and Plan: Postop day 1 and doing well. WBC count down to 10.5 today and he has been afebrile for over 24 hours. Continue IV Zosyn and metronidazole. His diet has been advanced as tolerated to heart healthy. Continue to monitor his CARLOS EDUARDO drain, which could potentially be removed prior to discharge. Repeat labs tomorrow and could consider discharge tomorrow with transition to oral antibiotics for another 7 days if he is doing well. Encouraged getting up to the chair and walking the halls today. (2) Sepsis: Qualifiers: Sepsis type: sepsis due to unspecified organism Sepsis acute organ dysfunction status: without acute organ dysfunction Qualified Code(s): A41.9 - Sepsis, unspecified organism Code(s): A41.9 - Sepsis, unspecified organism Status: Acute Assessment and Plan: S/p source control with laparoscopic appendectomy. Continue IV antibiotics. Blood cx NGTD. Plan I have discussed the patient's case and plan of care with Dr. Moore. Subjective Subjective Date/Time Seen: 11/13/23 12:32 Post Op day: 1 (Laparoscopic appendectomy) Patient reports: feels better, tolerating liquids well, voiding w/o difficulty, flatus and afebrile (since surgery) Interval history: Patient reporting lower abdominal pain primarily near his suprapubic incision, but pain is much better than the pain he was feeling preoperatively. He had some nausea and bloating earlier this morning, but this improved with Zofran. He is passing flatus and reports having one small liquid stool. He has been up and ambulated in the room. No other complaints at this time. Review of Systems Review of Systems: All systems reviewed & are unremarkable except as noted in HPI and below Exam Const: General: comfortable and no acute distress Nutritional Appearance: average body habitus Orientation/consciousness: patient oriented x3 GI: GI Palp: No Guarding due to palpation present (GI) Auscultation: normal bowel sounds Other: Abdomen is mildly distended but soft. His incisions are dry and glue is intact. CARLOS EDUARDO drain in the RLQ with minimal cloudy serosanguineous drainage. He has some tenderness in the RLQ and near his incisions, no guarding. Much less tender than yesterday. Objective Data Vital Signs Vital Signs: Vital Signs - 24 hr 11/12/23 15:29 11/12/23 17:54 11/12/23 18:00 Temperature 98.7 F 98.7 F Pulse Rate 62 79 75 Respiratory Rate 18 21 H 23 H Blood Pressure 113/54 L 111/55 L 108/56 L Pulse Oximetry 94 97 97 Oxygen Delivery Room Air Simple Face Mask Room Air Oxygen Flow Rate 10 11/12/23 18:15 11/12/23 18:30 11/12/23 18:37 Temperature Pulse Rate 77 77 72 Respiratory Rate 20 15 20 Blood Pressure 116/58 L 116/59 L 113/59 L Pulse Oximetry 97 94 94 Oxygen Delivery Nasal Cannula Nasal Cannula Nasal Cannula Oxygen Flow Rate 2 2 2 11/12/23 19:51 11/13/23 02:46 11/13/23 08:00 Temperature 98.3 F 98.7 F Pulse Rate 64 54 L Respiratory Rate 20 20 Blood Pressure 117/58 L 109/61 Pulse Oximetry 90 92 Oxygen Delivery Room Air Oxygen Flow Rate 11/13/23 09:45 Temperature 97.8 F Pulse Rate 60 Respiratory Rate 16 Blood Pressure 105/55 L Pulse Oximetry 94 Oxygen Delivery Oxygen Flow Rate Intake/Output Intake/Output: Intake & Output 11/10/23 11/11/23 11/12/23 11/13/23 23:59 23:59 23:59 23:59 Intake Total 1150 3754 834 Output Total 810 130 Balance 1150 2944 704 Meds/Results Medications: Active Medications Generic Name Dose Route Start Last Admin Trade Name Sonia PRN Reason Stop Dose Admin Acetaminophen 650 mg 11/11/23 23:40 11/12/23 04:46 Acetaminophen 325 Mg Tablet PO 650 mg Q4H PRN Administration Mild Pain (1-3)
--- NOTE | 2023-11-13 12:51 | PM.IMPN ---
Progress Note: A&P Assessment and Plan (1) Acute perforated appendicitis: Code(s): K35.32 - Acute appendicitis with perforation, localized peritonitis, and gangrene, without abscess Status: Acute Assessment and Plan: Patient meets sepsis criteria with fever, leukocytosis in the setting of acute perforated appendicitis with associated abscess. Patient has peritoneal signs. Patient has been started on antibiotic therapy with Zosyn. General surgery was consulted. Patient underwent appendectomy on 11/12/2023. Findings consistent with gangrenous appendix with no obvious collection of fluid or pus. Patient is having fevers. Will place patient on IV ibuprofen as needed. Zofran PRN for nausea. discussed with General surgery and patient will need 7 days of antibiotics after discharge. (2) Acute appendicitis with perforation and peritoneal abscess: Code(s): K35.33 - Acute appendicitis with perforation, localized peritonitis, and gangrene, with abscess Status: Deleted Assessment and Plan: See #1 (3) Sepsis: Qualifiers: Sepsis acute organ dysfunction status: without acute organ dysfunction Sepsis type: sepsis due to unspecified organism Qualified Code(s): A41.9 - Sepsis, unspecified organism Code(s): A41.9 - Sepsis, unspecified organism Status: Resolved Assessment and Plan: See #1 (4) Dehydration: Code(s): E86.0 - Dehydration Status: Resolved Assessment and Plan: Patient is now eating and drinking without difficulty. IV fluids and been discontinued. Subjective Date/time seen: 11/13/23 12:51 Interval history: Patient doing significantly better today. He still has some discomfort in the right lower quadrant but abdomen is softer and bowel sounds are present. He has remained afebrile since appendectomy. he denies any diarrhea, vomiting, chest pain shortness a breath. He has mild nausea this morning. Exam Narrative: GENERAL: Comfortable, no acute distress HENMT: moist mucous membranes EYES: EOM intact b/l NECK: no lymphadenopathy RESPIRATORY: clear to auscultation CARDIO: RRR GI: Soft, right lower quadrant tenderness, bowel sounds present, drains draining clear bloody fluid SKIN: no rashes EXTREMITIES: no edema, redness or tenderness Objective Data Vital Signs Vital Signs: Vital Signs - 24 hr 11/12/23 15:29 11/12/23 17:54 11/12/23 18:00 Temperature 98.7 F 98.7 F Pulse Rate 62 79 75 Respiratory Rate 18 21 H 23 H Blood Pressure 113/54 L 111/55 L 108/56 L Pulse Oximetry 94 97 97 Oxygen Delivery Room Air Simple Face Mask Room Air Oxygen Flow Rate 10 11/12/23 18:15 11/12/23 18:30 11/12/23 18:37 Temperature Pulse Rate 77 77 72 Respiratory Rate 20 15 20 Blood Pressure 116/58 L 116/59 L 113/59 L Pulse Oximetry 97 94 94 Oxygen Delivery Nasal Cannula Nasal Cannula Nasal Cannula Oxygen Flow Rate 2 2 2 11/12/23 19:51 11/13/23 02:46 11/13/23 08:00 Temperature 98.3 F 98.7 F Pulse Rate 64 54 L Respiratory Rate 20 20 Blood Pressure 117/58 L 109/61 Pulse Oximetry 90 92 Oxygen Delivery Room Air Oxygen Flow Rate 11/13/23 09:45 Temperature 97.8 F Pulse Rate 60 Respiratory Rate 16 Blood Pressure 105/55 L Pulse Oximetry 94 Oxygen Delivery Oxygen Flow Rate Intake/Output Intake/Output: Intake & Output 11/10/23 11/11/23 11/12/23 11/13/23 23:59 23:59 23:59 23:59 Intake Total 1150 3754 834 Output Total 810 130 Balance 1150 2944 704 Meds/Results Medications: Active Medications Generic Name Dose Route Start Last Admin Trade Name Sonia PRN Reason Stop Dose Admin Acetaminophen 650 mg 11/11/23 23:40 11/12/23 04:46 Acetaminophen 325 Mg Tablet PO 650 mg Q4H PRN Administration Mild Pain (1-3) or Fever Hydromorphone HCl 0.5 mg 11/12/23 11:59 11/13/23 12:07 Hydromorphone Hcl Inj (*Crx) 1 Mg/Ml Syr IV PUSH 0.5 mg
[2023-11-13 13:50] VITALS: BP 117/55; PULSE 59; RESP 18; TEMP 36.2; O2SAT 96
[2023-11-13] MEDS: HYDROcodone/acetaminophen (*CRX) 5-325 MG TABLET 1 TAB PO (17:36)
[2023-11-13 21:08] VITALS: BP 133/64; PULSE 44; RESP 20; TEMP 36.8; O2SAT 96
[2023-11-14] VITALS: PULSE 42
--- NOTE | 2023-11-14 00:02 | ECG_ITS ---
Measurements Intervals [place] Rate: 40 P: 50 NV: 174 QRS: 34 QRSD: 82 T: 53 QT: 465 QTc: 383 Interpretive Statements SINUS BRADYCARDIA ABNORMAL ECG COMPARED TO ECG 11/12/2023 15:50:05 SINUS BRADYCARDIA NOW PRESENT Electronically Signed On 11-14-2023 6:48:26 PACKAGE LINE OPERATOR by Gregory Bear D.O.
--- NOTE | 2023-11-14 00:16 | PC.NURSE ---
Dr Waldron notified patient has been sustaining HR <45 bpm this evening. Pt has been asymptomatic and all other vitals are stable. Order received for q4hr telemetry and stat EKG
--- NOTE | 2023-11-14 00:40 | PM.EVENT ---
Event Note Event Note Event Note: Nursing staff notified me the patient was having bradycardia at vitals checked. Nursing staff monitor the patient at bedside in the patient's heart rate was dropping as low as 32. A stat EKG was performed which demonstrated sinus bradycardia with normal QT interval. Patient was asymptomatic. Patient is not on any rate controlling medications. The patient's heart rate was only 42 with activity. Patient was placed on telemetry and has had multiple episodes of heart rates down as low as 35. Vitals have been changed to Q 4 due to being placed on telemetry. Will monitor. I suspect the patient likely has some baseline bradycardia and just is more exaggerated since he is less active than usual. His heart rate may have been artificially higher yesterday due to his acute infection and perforated appendicitis.
[2023-11-14] MEDS: HYDROcodone/acetaminophen (*CRX) 5-325 MG TABLET 1 TAB PO ×2 (02:17→10:33)
[2023-11-14 02:53] VITALS: BP 152/65; PULSE 35; RESP 20; TEMP 36.4; O2SAT 94
[2023-11-14 04:00] VITALS: PULSE 38
[2023-11-14] MEDS: PIPERACILLN/TAZ 3.375GM/NS50ML 3.375 GM/50 ML BAG IVPB (05:30)
[2023-11-14 05:55] LABS: Basophils Percent Auto 0.2 % (0.2-1.2); Eosinophils Absolute Auto 0.1 K/mm3 (0-0.3); Eosinophils Percent Auto 0.5 % (0-4.4); Hematocrit 32.6 % (42.0-52.0); Hemoglobin 10.8 g/dL (14.0-18.0); Immature Granulocyte Absolute 0.04 K/mm3 (0.00-0.031); Immature Granulocyte Percent A 0.4 % (0-0.5); Lymphocytes Absolute Auto 0.81 K/mm3 (0.9-3.2); Lymphocytes Percent Auto 8.1 % (18.3-44.2); Mean Corpuscular HGB Conc 33.1 g/dl (32-36); Mean Corpuscular Hemoglobin 35.5 pg (26-34); Mean Corpuscular Volume 107.2 fl (80-100); Mean Platelet Volume 11.1 fl (7.4-10.4); Monocytes Absolute Auto 0.9 K/mm3 (0.1-0.6); Monocytes Percent Auto 8.7 % (2.6-8.5); Neutrophils Absolute Auto 8.2 K/mm3 (1.3-6.7); Neutrophils Percent Auto 82.1 % (45.5-73.1); Platelet Count Result 109 k/mm3 (150-375); Red Blood Count 3.04 M/mm3 (4.6-6.20)
[2023-11-14] MEDS: metroNIDAZOLE 500 MG/ISO 100ML 500 MG/100 ML BAG 100 MG IVPB (05:57)
[2023-11-14 06:00] LABS: Anion Gap 7 mmol/L (8-16); Blood Urea Nitrogen 18 mg/dL (9-20); Calcium 8.1 mg/dL (8.4-10.2); Carbon Dioxide 23 mmol/L (22-30); Chloride 108 mmol/L (98-107); Estimated CRCL calculation 61 ml/min; Estimated Glomerular Filt Rate > 60; Glucose 108 mg/dL (65-110); Potassium 3.5 mmol/L (3.4-5.0); Sodium 138 mmol/L (137-145)
[2023-11-14 08:00] VITALS: PULSE 35
[2023-11-14 08:08] VITALS: BP 161/62; PULSE 38; RESP 18; O2SAT 97
--- NOTE | 2023-11-14 10:59 | PM.PNGS ---
Progress Note: A&P Assessment and Plan (1) Acute appendicitis with generalized peritonitis, with perforation and abscess: Code(s): K35.211 - Acute appendicitis with generalized peritonitis, with perforation and abscess Status: Acute Assessment and Plan: Patient is status post laparoscopic appendectomy postop day 2. He is doing well surgically and his white blood cell count is down to 10,000. He is tolerating a heart healthy diet and tolerating activity. Will remove his CARLOS EDUARDO drain today. Okay from our standpoint to discharge the patient on an additional 7 days of oral antibiotics when okay with the primary service. We will have him follow-up with Dr. Moore in 2 weeks. Plan I have discussed the patient's case and plan of care with Dr. Moore. Subjective Subjective Date/Time Seen: 11/14/23 10:59 Post Op day: 2 (laparoscopic appendectomy) Patient reports: no new complaints, feels better, tolerating a regular diet and afebrile Interval history: Patient seen this morning and doing well. He is tolerating activity and walking in the room and to the bathroom. He is tolerating a heart healthy diet. He denies anymore nausea and no vomiting. Still has some bloating but feels the Ibuprofen is helping with his abdominal discomfort and bloating. He is still having pain mostly in the RLQ near the drain and suprapubic incision, but continues to improve. His pain is being controlled with the hydrocodone, which he also takes for chronic back pain. He has had two previous back surgeries and is needing another one. He reports taking [place] 7-325 mg as needed for his back pain prescribed by his PCP and is planning to have a third surgery in the near future. He reports being out of his hydrocodone at home and is due for a refill which he has not gotten from his PCP. Exam Const: General: no acute distress Orientation/consciousness: patient oriented x3 GI: Auscultation: normal bowel sounds Other: Abdomen is mildly distended but soft. His incisions are dry and glue is intact. CARLOS EDUARDO drain in the RLQ with minimal cloudy serosanguineous drainage. He has some tenderness in the RLQ and near his incisions, no guarding. Much less tender than yesterday. Objective Data Vital Signs Vital Signs: Vital Signs - 24 hr 11/13/23 13:50 11/13/23 21:08 11/14/23 00:00 Temperature 97.2 F L 98.3 F Pulse Rate 59 L 44 L 42 L Respiratory Rate 18 20 Blood Pressure 117/55 L 133/64 Pulse Oximetry 96 96 11/14/23 02:53 11/14/23 04:00 11/14/23 08:08 Temperature 97.5 F L Pulse Rate 35 L 38 L 38 L Respiratory Rate 20 18 Blood Pressure 152/65 H 161/62 H Pulse Oximetry 94 97 Intake/Output Intake/Output: Intake & Output 11/11/23 11/12/23 11/13/23 11/14/23 23:59 23:59 23:59 23:59 Intake Total 1150 3754 3068 730 Output Total 810 310 235 Balance 1150 2944 0288 495 Meds/Results Medications: Active Medications Generic Name Dose Route Start Last Admin Trade Name Freq PRN Reason Stop Dose Admin Acetaminophen 650 mg 11/11/23 23:40 11/12/23 04:46 Acetaminophen 325 Mg Tablet PO 650 mg Q4H PRN Administration Mild Pain (1-3) or Fever Hydrocodone Bitart/Acetaminophen 1 tab 11/13/23 17:08 11/14/23 10:33 Hydrocodone/Acetaminophen (*Crx) 5-325 Mg Tablet PO 1 tab Q4H PRN Administration Pain Rated 4-6 Cefdinir 300 mg 11/14/23 12:00 Cefdinir 300 Mg Capsule PO 11/20/23 21:01 Q12HR JEANETH Hydromorphone HCl 0.5 mg 11/12/23 11:59 11/13/23 12:07 Hydromorphone Hcl Inj (*Crx) 1 Mg/Ml Syr IV PUSH 0.5 mg Q3H PRN Administration Pain Rated 7-10 Ibuprofen 400 mg/ Sodium 104 mls @ 208 mls/hr 11/12/23 08:20 11/13/23 12:29 Chloride IVPB Infused Q6H PRN Infusion Pain Rated 4-6 or fever Metronidazole 500 mg 11/14/23 14:00 Metronidazole 500 Mg Tablet PO 11/21/23 06:01 Q8HR JEANETH Ondansetron HCl 4 mg 11/11/23 23:40 11/13/23 09:39 Ondansetron Inj 4 Mg/2 Ml Vial IV PUSH 4 mg
[2023-11-14 12:00] VITALS: PULSE 42
--- NOTE | 2023-11-14 12:34 | PM.DS ---
DS: Admitting Diagnosis Discharge Date 11/14/23 Admitting Diagnosis Acute perforated appendicitis Acute appendicitis with perforation and peritoneal abscess Sepsis Dehydration DS: Discharge Diagnosis Discharge Diagnosis (1) Acute perforated appendicitis: Code(s): K35.32 - Acute appendicitis with perforation, localized peritonitis, and gangrene, without abscess Status: Acute (2) Acute appendicitis with perforation and peritoneal abscess: Code(s): K35.33 - Acute appendicitis with perforation, localized peritonitis, and gangrene, with abscess Status: Deleted (3) Sepsis: Qualifiers: Sepsis type: sepsis due to unspecified organism Sepsis acute organ dysfunction status: without acute organ dysfunction Qualified Code(s): A41.9 - Sepsis, unspecified organism Code(s): A41.9 - Sepsis, unspecified organism Status: Resolved (4) Dehydration: Code(s): E86.0 - Dehydration Status: Resolved DS: Summary Hospital Course Reason for hospitalization: Acute perforated appendicitis Acute appendicitis with perforation and peritoneal abscess Sepsis Dehydration Hospital Course: This is a 77-year-old male who presented to the hospital on 11/11/2023 with complaints of lower abdominal pain. Workup in the hospital included a CT of the abdomen and pelvis which showed severe acute, complicated appendicitis with findings concerning for wall breakdown, contained perforation, right and early multifocal periappendiceal abscess formation. Labs revealed a white blood cell count of 10.5, lactate was 1.2. UA was also performed which shown 1+ ketones, 1+ blood, 11-20 urine rbc's. Respiratory panel was negative for influenza, COVID. General surgery was consulted and took patient to the OR on 11/12/2023. He was found to have a gangrenous appendix which was removed. He was started on Flagyl and Zosyn. He was then switched to Flagyl and cefdinir for an additional 7 days. Vital signs are stable, he is afebrile, he is currently on room air. He denies any fever, chills, nausea, vomiting, diarrhea, abdominal pain, chest pain, shortness a breath. General surgery seen patient today and removed his CARLOS EDUARDO drain He is stable for discharge at this time. He will need to follow up with General surgery in 2 week. He will also need to update his primary care physician about this admission. Final diagnosis: Sepsis, acute appendicitis with perforation and peritoneal abscess, dehydration Status at Discharge Cognitive/behavioral status at discharge: Is alert oriented x4 Functional status at discharge: independent ambulation Overall status at discharge: patient is progressing back to baseline Time Spent with Patient Time attestation: Total time spent providing and/or coordinating discharge services: Time spent: Greater than 30 minutes Exam Narrative: General: In no acute distress, well nourished Head: atraumatic, no encephalopathy Eyes: EOMI, PERRLA, sclera clear ENT: moist mucous membranes, nasal passages clear Neck: supple, no JVD, no adenopathy, trachea midline Cardiac: Normal S1 and S2. Sinus bradycardia in the 30's to 40's, No murmur, gallops or friction rubs, peripheral pulses intact. Respiratory: Lungs clear to auscultation, no adventitious lung sounds Gastrointestinal: soft, non-distended, non-tender, normoactive bowel sounds. : voiding without difficulty. Extremities: moves all extremities well, no edema, good ROM, strength 5/5 Skin: Lap sites with surgical glue, umbilicus and right lower quadrant, drain currently in place but will be removed today with General surgery, it is draining serosanguineous drainage Neuro: Alert and oriented x4, cranial nerves intact, no neuro deficits. Psych: normal mood, normal affect, interactive DS: Data Data Completed and Pending Completed studies during hospitalization: Pending at discharge 11/12/23 16:02 Surgical [PTH] Routine Pending studies at discharge:
[2023-11-14] MEDS: CEFDINIR 300 MG CAPSULE PO (12:56)
== END 2023-11-14 13:55 | disposition home or self-care (01) | DRG 853 ==
LOC: ANHED 23:54 → ANH2MED 11-12 00:14
PROVIDERS: Internal Medicine Critical Care Medicine; Nurse Practitioner Family; Surgery; Admitting Provider Internal Medicine; Emergency Provider Emergency Medicine; PCP Family Medicine; Visit Provider Nurse Practitioner Acute Care
PROC: 0DTJ4ZZ Resection of Appendix, Percutaneous Endoscopic Approach (ICD-10-PCS; CPT 44970; principal; 2023-11-12 15:30)
DX: A41.9 Sepsis, unspecified organism (principal); K35.33 Acute appendicitis with perforation, localized peritonitis, and gangrene, with abscess; E86.0 Dehydration; N40.0 Benign prostatic hyperplasia without lower urinary tract symptoms; M47.812 Spondylosis without myelopathy or radiculopathy, cervical region; K21.9 Gastro-esophageal reflux disease without esophagitis; M47.816 Spondylosis without myelopathy or radiculopathy, lumbar region; G62.9 Polyneuropathy, unspecified; Z20.822 Contact with and (suspected) exposure to COVID-19; R00.1 Bradycardia, unspecified; I73.9 Peripheral vascular disease, unspecified; Z85.46 Personal history of malignant neoplasm of prostate; Z85.828 Personal history of other malignant neoplasm of skin; Z98.1 Arthrodesis status; Z86.19 Personal history of other infectious and parasitic diseases; Z87.891 Personal history of nicotine dependence
CPT/HCPCS: 36415; 74177; 80048; 80053; 81001; 83605; 83690; 85025; 85055; 87040; 87636; 88304; 93005; 96361; 96365; 96367; 96375; 96376; 99285; A9270; G0378; J0330; J1100; J1170; J1741; J1836; J2270; J2405; J2543; J2704; J3010; J7030; J7120; Q9967

== ENCOUNTER 2023-12-17 16:18 | Outpatient (CLI) | payer MEDICARE, SELFPAY ==
--- NOTE | ~2023-12-17 | MR_ITS ---
MRI of the cervical spine Clinical History: Injury Technique: Axial T2-weighted and gradient images, and sagittal T1-weighted, T2-weighted, and STIR priscilla ges were acquired. COMPARISON: 05/30/2023 Findings: There is 3 mm anterolisthesis of C5 over C6. There is posterior fusion from C3 to C6, with bilateral rods and transpedicular screws present. There is advanced degenerative changes reticulation the odontoid process with the anterior arch of C1. No acute fracture seen. No suspicious bone marrow signal abnormality seen. At C2-C3, there is probable minimal right neural foraminal narrowing. Left neural foramen preserved. No spinal canal stenosis or cord compression. At C3-C4, there is minimal disc osteophyte complex. There is no spinal canal stenosis or cord bettye ed. There is probable bilateral neural foraminal narrowing, left worse than right. At C4-C5, there is advanced degenerative disc narrowing. There is minimal disc bulge. No spinal canal stenosis or cord compression. There is left neural foraminal narrowing. Right neural foramen preserv ed. At C5-C6, there is severe degenerative disc narrowing. There is probable mild canal stenosis without li cord compression. There is bilateral neural foraminal narrowing. At C6-C7, there is degenerative disc narrowing with minimal disc bulge. There is left neural foramina l narrowing. No definite right neural foraminal narrowing. No definite canal stenosis or cord bettye ed. There is stable, focal high signal in the spinal cord at the C4-C5 level, probably due to chronic armond malacia changes focally. Paravertebral soft tissues are unremarkable aside from expected postoperativ e change. Impression: Stable postoperative change with posterior fusion from C3 to C6. 3 mm anterolisthesis of C5 over C6. Degenerative spondylosis, with multilevel neural foraminal narrowing, as detailed above. Focal myelomalacia changes in the C4-C5 spinal cord, stable from prior exam. Reviewed, dictated and finalized at location M. 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 3 mm anterolisthesis of C5 over C6. Degenerative spondylosis, with multilevel neural foraminal narrowing, as detail ed above. Focal myelomalacia changes in the C4-C5 spinal cord, stable from prior exam.
== END 2023-12-17 16:19 | disposition home or self-care (01) ==
PROVIDERS: PCP Family Medicine; Visit Provider Neurological Surgery
DX: S14.109A Unspecified injury at unspecified level of cervical spinal cord, initial encounter (principal); X58.XXXA Exposure to other specified factors, initial encounter; Z98.1 Arthrodesis status; M47.892 Other spondylosis, cervical region
CPT/HCPCS: 72141

== ENCOUNTER 2024-03-13 15:25 | Outpatient (CLI) | payer MEDICARE, SELFPAY ==
--- NOTE | ~2024-03-13 | MR_ITS ---
EXAMINATION: MR thoracic spine wo con DATE: 03/13/2024 16:11 INDICATION: Lumbar radiculopathy. Preoperative assessment for planned spinal stimulator placement. TECHNIQUE: Magnetic resonance imaging (MRI) of the thoracic spine was performed without intravenous c ontrast. Sagittal localizer T1-weighted FSE of the cervicothoracic spine was obtained. Thoracic spine sequences included sagittal T2-weighted FSE, sagittal T1-weighted SE, Sagittal T2-weighted FS FSE, a nd axial T2-weighted FSE. COMPARISON: None FINDINGS: 2 mm anterolisthesis C7 on T1. Vertebral body heights are normal. There are few small Schmorl's nodes in the lower thoracic spine. T1 hyperintense hemangioma at T7. Marrow signal is otherwise normal. Se joaquin disc height loss at C5-C6 with posterior disc osteophyte complex resulting in mild central canal . Moderate disc height loss at [id number] disc bulges also resulting in mild central canal stenosis a t this level. Mild disc height loss at T3-T4 through T10-T11. There are few small disc protrusions re sulting in minimal central canal stenosis at a few levels in the thoracic spine. This includes at the right subarticular zone at T1-T2, centrally at T3-T4 and at the left subarticular zone with associat ed annular fissure at T8-T9. There is normal spinal cord signal. The conus terminates at T12. IMPRESSION: 1. Mild thoracic spondylosis. Reviewed, dictated and finalized at location A.
== END 2024-03-13 15:26 | disposition home or self-care (01) ==
PROVIDERS: PCP Family Medicine; Visit Provider Anesthesiology Pain Medicine
DX: M54.16 Radiculopathy, lumbar region (principal); M47.894 Other spondylosis, thoracic region
CPT/HCPCS: 72146

== ENCOUNTER 2024-07-26 12:46 | Emergency (ER) | payer MEDICARE, SELFPAY ==
--- NOTE | 2024-07-26 12:49 | ED.GENADULT ---
HPI - General Adult General Chief complaint: Back Pain/Injury Stated complaint: left leg numbing+ stomach pain Time Seen by Provider: 07/26/24 12:59 Source: patient, RN notes reviewed and old records reviewed Mode of arrival: ambulatory Limitations: no limitations History of Present Illness HPI narrative: 78-year-old male presents to the [facility] with left lower back pain. Patient is schedule for spine surgery next week. Patient also reports over the last couple of days had had numbness and tingling in the left leg. Is using a walker. Does have full range of motion of the hip the knee and the foot. Walks with a normal gait but using a walker stating that his it feels like his leg goes numb at times. No midline tenderness. Denies any loss retention of bowel or bladder. Denies any abdominal pain. Reports concerns for a UTI, urine dip done Related Data Home Medications Medication Instructions Recorded Confirmed latanoprost 0.005 % eye drops 1 drp EACH EYE HS 07/26/24 07/26/24 Allergies Allergy/AdvReac Type Severity Reaction Status Date / Time No Known Allergies Allergy Verified 07/26/24 12:53 Review of Systems Review of Systems: All systems reviewed & are unremarkable except as noted in HPI and below Constitutional: Constitutional: Reports no additional constitutional complaints Eyes: Eyes: Reports no additional eye complaints ENT: Reports system reviewed and no additional complaints, except as documented Cardiovascular: Cardiovascular: Reports no additional cardiovascular complaints, Denies chest pain and Denies dyspnea Respiratory: Respiratory: Reports no additional respiratory complaints, Denies chest congestion, Denies cough and Denies dyspnea Gastrointestinal: Gastrointestinal: Reports no additional gastrointestinal complaints, Denies abdominal pain, Denies nausea and Denies vomiting Musculoskeletal: Musculoskeletal: Reports as per HPI Integumentary/Breasts: Skin/Breast: Reports system reviewed and no additional complaints, except as docu Neurologic: Reports system reviewed and no additional complaints, except as documented Psychiatric: Psychiatric: Reports no additional psychiatric complaints Allergic/Immunologic: Allergic/Immunologic: Reports no additional allergic/immunologic complaints PMFSH Past Medical History Medical History Actinic keratosis Allergic rhinitis, cause unspecified (01/15/18) Anxiety BPH (benign prostatic hyperplasia) (07/24/17) Cardiac murmur Patient reports he has had it since childhood Cervical spondylosis Chronic low back pain (07/24/17) Essential (primary) hypertension Gastroesophageal reflux disease without esophagitis Hepatic cirrhosis due to chronic hepatitis C infection With prior treatment and resolution History of basal cell carcinoma History of prostate cancer IFG (impaired fasting glucose) Lumbar spondylosis Overactive bladder Peripheral neuropathy (11/20/17) Peripheral vascular disease (11/13/17) Rotator cuff arthropathy of right shoulder SVT (supraventricular tachycardia) Status post ablation Unspecified osteoarthritis, unspecified site Surgical History Surgical History H/O excision of lamina of cervical vertebra for decompression of spinal cord History of back surgery L4-L5 History of cardiac radiofrequency ablation SVT History of laparoscopic appendectomy Status post cataract extraction of both eyes with insertion of intraocular lens Status post cervical spinal fusion Status post hernia repair Bilateral inguinal hernia Family History Family History Father Family history of malignant neoplasm of esophagus Mother Acute myocardial infarction Social History Social History Social History: He reports that he has been sin
[2024-07-26 12:59] VITALS: BP 114/54; PULSE 60; RESP 16; TEMP 36.4; O2SAT 97
[2024-07-26 13:33] LABS: EDUAAPPEAR Clear; EDUABILI 1+ (Negative); EDUABLOOD 2+ (Negative); EDUACOLOR1 Yellow; EDUAGLUCOSE Negative (Negative); EDUAKETONE Trace (Negative); EDUALEUKO Negative (Negative); EDUANITRATE Negative (Negative); EDUAPH 5.5; EDUAPROTEIN Negative (Negative); EDUAUROBILI 0.2
== END 2024-07-26 13:46 | disposition home or self-care (01) ==
PROVIDERS: Emergency Provider Nurse Practitioner; PCP Family Medicine
DX: M54.16 Radiculopathy, lumbar region (principal); Z87.891 Personal history of nicotine dependence; N40.0 Benign prostatic hyperplasia without lower urinary tract symptoms; R01.1 Cardiac murmur, unspecified; I10 Essential (primary) hypertension; K21.9 Gastro-esophageal reflux disease without esophagitis; G62.9 Polyneuropathy, unspecified; M19.90 Unspecified osteoarthritis, unspecified site; Z85.828 Personal history of other malignant neoplasm of skin; Z85.46 Personal history of malignant neoplasm of prostate; Z96.1 Presence of intraocular lens; Z98.42 Cataract extraction status, left eye; Z98.41 Cataract extraction status, right eye
CPT/HCPCS: 81003; 99212; G0463

== ENCOUNTER 2024-07-31 12:50 | Outpatient (CLI) | payer MEDICARE, SELFPAY ==
[2024-07-31 15:49] LABS: Hematocrit 39.3 % (42.0-52.0); Hemoglobin 13.7 g/dL (14.0-18.0); Mean Corpuscular HGB Conc 34.9 g/dl (32-36); Mean Corpuscular Hemoglobin 35.9 pg (26-34); Mean Corpuscular Volume 102.9 fl (80-100); Mean Platelet Volume 9.9 fl (7.4-10.4); Platelet Count Result 131 k/mm3 (150-375); Red Blood Count 3.82 M/mm3 (4.6-6.20); Red Cell Distribution Width 12.3 % (11.5-14.5); White Blood Count 5.5 K/mm3 (4.5-10.0)
[2024-07-31 15:53] LABS: Add Urine Microscopic? YES; Appearance Urine Clear (Clear); Bacteria Urine None Seen /hpf; Bilirubin Urine Negative (Negative); Blood Urine Trace (Negative); Color Urine Yellow (Yellow); Glucose Urine UA Negative (Negative); Ketones Urine Negative (Negative); Leukocyte Esterase Ur Negative LEU/UL (Negative); Nitrate Urine Negative (Negative); Non Pathogenic Casts 0-2; Protein Urine Negative (Negative); RBC Urine 0-2 /hpf (0-2); Specific Grav Ur 1.007 (1.001-1.035); Squamous Epithelial Cell Urine None Seen /hpf (Few); Urobilinogen Urine 0.2 mg/dL (<2.0); WBC Urine 0-5 /hpf (0-3)
[2024-07-31 16:01] LABS: Prothrombin Time 13.7 Seconds (11.1-14.7)
[2024-07-31 16:02] LABS: Partial Thromboplastin Time 24.2 Seconds (22.3-36.8)
== END 2024-07-31 12:51 | disposition home or self-care (01) ==
PROVIDERS: PCP Family Medicine; Visit Provider Neurological Surgery
DX: Z01.818 Encounter for other preprocedural examination (principal); M48.061 Spinal stenosis, lumbar region without neurogenic claudication
CPT/HCPCS: 36415; 81001; 85027; 85610; 85730

== ENCOUNTER 2024-08-05 00:51 | Day surgery (SDC) | payer MEDICARE, SELFPAY ==
[2024-07-29 08:22] VITALS: BMI 25.2
--- NOTE | 2024-07-29 08:46 | PC.NURSE ---
Report to the Outpatient Waiting Room, entrance under the green pavilion located off [facility], at time ___07:30am__on date ___08/05/24____. Planned Procedure Time: __09:30am .? Time changes happen often and if your time is changed the preop area will call you the afternoon before. - You and your visitor will be asked to self-screen and do not enter if you have any COVID symptoms. Please call surgeon if you need to reschedule. - A mask is optional within the hospital at this time. Patients may have clear liquids (water, carbonated beverages, clear teas, apple juice) until 3 hours prior to surgery with a maximum of 20 ounces. - No food from midnight until time of surgery and no smoking (06:30am) Take only the following medications with a SIP of water on the morning of surgery: ___Doxazosin, eye drops and Hydrocodone if needed DO NOT STOP ANY OF YOUR OTHER PRESCRIPTION MEDICATIONS PRIOR TO SURGERY EXCEPT THE FOLLOWING Medications to discontinue per physician ____None Date to take last dose None Remind Son to bring DNR information for Day of surgery and Anesthesia. Please no make-up, nail cymraes, hairspray, perfume, deodorant, or body powder the day of surgery.? No jewelry (including any body piercings) or valuables the day of surgery, leave them at home.? Please take a shower or bath the night before, or the morning of, surgery with an antibacterial soap.? Wear comfortable, loose fitting clothing.? - Jewelry must be removed prior to entering the operating room.? Rings and piercings that are not removed may be cut off. - The hospital will not accept responsibility for valuables.? - Please leave all valuables, including medications, at home the day of surgery. If you are going home after surgery, a licensed wrecking car driver must drive you home.? - NO public transportation without another adult if you receive anesthesia. - We recommend that an adult stay with you for 24 hours following discharge. - We also recommend that you do not drive, make important decision, drink alcoholic beverages, or take any drugs that were not prescribed by your health care provider for at least 24 hours after your discharge time. Follow any additional instructions given to you from your surgeon. Telephone instructions given to __Patient ___and asked if any additional questions and then verbalized understanding. Patient advised to call surgeon office or pre surgery nurse liaison [phone] if any additional questions.
[2024-08-05] VITALS (19 sets, daily range): BP systolic 104–146; BP diastolic 45–84; PULSE 52–87; RESP 14–22; TEMP 36.3–37; O2SAT 90–99
--- NOTE | ~2024-08-05 | XR_ITS ---
EXAMINATION: XR fluoroscopy no charge DATE: 08/05/2024 12:31 INDICATION: Chronic back pain. TECHNIQUE: 3 intraoperative fluoroscopic views of the spine were obtained. I was not present. Fluoros copy exposure time was 17 seconds. COMPARISON: Thoracic spine MRI 03/13/2024 FINDINGS: Electrodes overlie the thoracic spine. There are changes of anterior and posterior fusion p rocedures at L4-L5. There is severe lumbar spondylosis. IMPRESSION: 1. Severe lumbar spondylosis. 2. Anterior and posterior fusion procedures at L4-L5. Reviewed, dictated and finalized at location A.
[2024-08-05] MEDS: LACTATED RINGERS 1,000 ML 30 ML IV CONT ×2 (08:11→13:31)
--- NOTE | 2024-08-05 08:58 | WPDANESEPPF ---
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 Patient Data Age: 78 Gender: M Height: 1.75 m Weight: 76.7 kg Last Vital Signs Temp 36.7 C 08/05/24 08:13 Pulse 52 L 08/05/24 08:13 Resp 16 08/05/24 08:13 BP 130/62 08/05/24 08:13 Pulse Ox 95 08/05/24 08:13 O2 Del Method Room Air 08/05/24 08:13 Allergies Allergy/AdvReac Type Severity Reaction Status Date / Time No Known Allergies Allergy Verified 08/05/24 08:00 Home Medications Medication Instructions Recorded Confirmed Type doxazosin 8 mg tablet 8 mg PO DAILY #90 tabs 06/25/24 08/05/24 Rx latanoprost 0.005 % eye drops 1 drp EACH EYE HS 07/26/24 08/05/24 History hydrocodone 7.5 mg-acetaminophen 1 tablet PO Q6H PRN Pain (Scale 08/04/24 08/05/24 Rx 325 mg tablet Score 4-6) #120 tabs Patient hx anesthesia problems: none Family hx anesthesia problems: none Results Review: All pre-operative results and documents have been reviewed as part of the pre-operative evaluation. [facility] Past Medical History Medical History Actinic keratosis Allergic rhinitis, cause unspecified (01/15/18) Anxiety BPH (benign prostatic hyperplasia) (07/24/17) Cardiac murmur Patient reports he has had it since childhood Cervical spondylosis Chronic low back pain (07/24/17) Essential (primary) hypertension Gastroesophageal reflux disease without esophagitis Hepatic cirrhosis due to chronic hepatitis C infection With prior treatment and resolution History of basal cell carcinoma History of prostate cancer IFG (impaired fasting glucose) Lumbar spondylosis Overactive bladder Peripheral neuropathy (11/20/17) Peripheral vascular disease (11/13/17) Rotator cuff arthropathy of right shoulder SVT (supraventricular tachycardia) Status post ablation Unspecified osteoarthritis, unspecified site Surgical History Surgical History H/O excision of lamina of cervical vertebra for decompression of spinal cord History of back surgery L4-L5 History of cardiac radiofrequency ablation SVT History of laparoscopic appendectomy Status post cataract extraction of both eyes with insertion of intraocular lens Status post cervical spinal fusion Status post hernia repair Bilateral inguinal hernia Family History Family History Father Family history of malignant neoplasm of esophagus Mother Acute myocardial infarction Social History Social History Social History: He reports that he has been since October 2021. He and his raised 6 children. They were for 50 years prior to her . He smoked from approximately age [age] per to quitting. 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 He then continued to work part-time until he had his most recent back surgery. Code status: DNR/DNI per patient request. Healthcare power of service shop foreman: Markos Costa (son) Smoking packs per day: 0.5 Smoking cigarettes per day: 10.0 Years smoked: 5 Smoking pack-years: 2.50 Smoking status: Former smoker Second hand tobacco smoke exposure: No Smoking end date: 10/22/1964 Alcohol intake: current Drinks per week: 1 Alcohol use details: Beer Substance use: never Substance use type: does not use Do You Feel Safe in your Home?: Yes Lack of Transportation: No Lack of Food: Never True Current Housing: I Have Housing Concerned About Future Housing: No Difficulty Paying Gas/Electric Bills: No Difficulty Paying for Meds: No Currently Unemployed: No Education: High School Diploma/GED Difficulty w/ Childcare or Family Care: No Living arrangements: with family Additional living arrangements comments: Son Occupation/Education: retired Gender identity (if verbalized by the patient): Male Sexual Orientation (if Verbalized by the Patient): Straight or Heterosexual Spiritual care concerns: No Agree to blood products: Yes Anes - Eval Final PreProcedure Day of Procedure 08/05/24 08:58 Patient weight: normal Lungs: clear to auscultation Airway: Mallampati scale class II Neurological: alert and oriented Last oral intake: >/= 8 hours ASA classification: III Emergent: no Anesthetic plan: proceed Anesthesia type and monitoring: general ETT and standard monitoring Results Review: All pre-operative results and documents have been reviewed as part of the pre-operative evaluation. Informed Consent: The patient's anesthetic plan and its attendant risks and benefits were discussed with the patient/family/POA. Questions were solicited and answers provided to the satisfaction of the patient/family/POA.
--- NOTE | 2024-08-05 10:32 | PM.IMHP ---
H&P: HPI History of Present Illness Date/Time: 08/05/24 10:32 Chief Complaint: Back and leg pain Narrative: Rodriguez continues to have back pain that radiates into his right lower extremity more than the left. The most significant pain is in his back. This is activity related especially standing and walking. He is status post L4-5 posterior lumbar interbody fusion. He had an MRI of the lumbar spine done about a year ago. We have reviewed this previously. He does not report specific muscle group weakness of either lower extremity. He is not reporting any bowel or bladder difficulty. He underwent a dorsal column stimulator trial since we saw him last. This, he states, was about 65% effective in eliminating the discomfort in his back, making him more functional and in less pain. He desires to have it permanently implanted. We had previously discussed doing this at the same time as a right-sided L3-4 far lateral foraminotomy. Review of Systems Review of Systems: Const Details: Const Details: Const Details: Const All systems reviewed & are unremarkable except as noted in HPI and below ?Denies chills, Denies fever(s), Denies weakness, Denies weight gain and Denies weight loss Eyes Denies change in vision and Denies diplopia ENT Denies neck pain and Denies disequilibrium Card Denies chest pain and Denies dyspnea Resp Denies cough and Denies dyspnea GI Denies abdominal pain, Denies change in bowel habits, Denies fecal incontinence and Denies vomiting Denies hematuria, Denies oliguria, Denies difficulty urinating, Denies dysuria, Denies urinary frequency, Denies urinary hesitancy, Denies urinary incontinence and Denies urinary urgency Musc Reports as per HPI, Reports back pain, Denies muscle weakness, Denies neck pain, Reports numbness and Denies stiffness Skin/ Breast Reports system reviewed and no additional complaints, except as documented Neuro Reports as per HPI, Denies burning sensations, Denies focal weakness, Reports numbness, Denies Other visual disturbances, Reports radicular pain, Reports paresthesias, Denies disequilibrium and Denies weakness Psych Reports no additional complaints, Denies depression and Denies hopelessness Endo Reports no additional complaints and Denies polyuria Efren/ Lymph Reports no additional complaints Aller/ Immun Reports no additional complaints PMFSH Past Medical History Medical History Actinic keratosis Allergic rhinitis, cause unspecified (01/15/18) Anxiety BPH (benign prostatic hyperplasia) (07/24/17) Cardiac murmur Patient reports he has had it since childhood Cervical spondylosis Chronic low back pain (07/24/17) Essential (primary) hypertension Gastroesophageal reflux disease without esophagitis Hepatic cirrhosis due to chronic hepatitis C infection With prior treatment and resolution History of basal cell carcinoma History of prostate cancer IFG (impaired fasting glucose) Lumbar spondylosis Overactive bladder Peripheral neuropathy (11/20/17) Peripheral vascular disease (11/13/17) Rotator cuff arthropathy of right shoulder SVT (supraventricular tachycardia) Status post ablation Unspecified osteoarthritis, unspecified site Surgical History Surgical History H/O excision of lamina of cervical vertebra for decompression of spinal cord History of back surgery L4-L5 History of cardiac radiofrequency ablation SVT History of laparoscopic appendectomy Status post cataract extraction of both eyes with insertion of intraocular lens Status post cervical spinal fusion Status post hernia repair Bilateral inguinal hernia Family History Family History Father Family history of malignant neoplasm of esophagus Mother Acute myocardial infarction Social History Social History Social History: He reports that he has been since October 2021. He and his raised 6 children. They were for 50 years prior to her . He smoked from approximately age [age] per to quitting. 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 He then continued to work part-time until he had his most recent back surgery. Code status: DNR/DNI per patient request. Healthcare power of divorce attorney: Markos Costa (son) Smoking packs per day: 0.5 Smoking cigarettes per day: 10.0 Years smoked: 5 Smoking pack-years: 2.50 Smoking status: Former smoker Second hand tobacco smoke exposure: No Smoking end date: 10/22/1964 Alcohol intake: current Drinks per week: 1 Alcohol use details: Beer Substance use: never Substance use type: does not use Do You Feel Safe in your Home?: Yes Lack of Transportation: No Lack of Food: Never True Current Housing: I Have Housing Concerned About Future Housing: No Difficulty Paying Gas/Electric Bills: No Difficulty Paying for Meds: No Currently Unemployed: No Education: High School Diploma/GED Difficulty w/ Childcare or Family Care: No Living arrangements: with family Additional living arrangements comments: Son Occupation/Education: retired Gender identity (if verbalized by the patient): Male Sexual Orientation (if Verbalized by the Patient): Straight or Heterosexual Spiritual care concerns: No Agree to blood products: Yes Meds Home Medications and Allergies Home Medications Medication Instructions Recorded Confirmed Type doxazosin 8 mg tablet 8 mg PO DAILY #90 tabs 06/25/24 08/05/24 Rx latanoprost 0.005 % eye drops 1 drp EACH EYE HS 07/26/24 08/05/24 History hydrocodone 7.5 mg-acetaminophen 1 tablet PO Q6H PRN Pain (Scale 08/04/24 08/05/24 Rx 325 mg tablet Score 4-6) #120 tabs Allergies Allergy/AdvReac Type Severity Reaction Status Date / Time No Known Allergies Allergy Verified 08/05/24 08:00 Vital Signs Vital Signs - 24 hr 08/05/24 08:13 Temperature 98.1 F Pulse Rate 52 L Respiratory Rate 16 Blood Pressure 130/62 Pulse Oximetry 95 Oxygen Delivery Room Air Exam Narrative: Const General: cooperative, no acute distress, well developed, alert and awake ?Orientation/Consciousness: oriented to person, oriented to place and oriented to time ?Constitutional Limitations: no limitations ?Other: ?The patient is a normally developed, normal appearing male sitting on the examination table in no acute distress. He is awake, alert, and oriented x3 with good fund of knowledge, recall of events, and fluent speech. [facility] Head: normocephalic and atraumatic ?Ears: external ears normal ?Face/Nose/Sinus: Normal external nose present Eyes Eyelids: eyelids normal ?Pupils: Yes Pupils normal by confrontation ?EOM: EOMs intact bilaterally Neck General: Yes no meningeal signs, Yes supple and Yes no JVD Resp Effort/Inspection: normal respiratory effort and able to speak in complete sentences Cardio Rate: Yes regular rate GI Inspection: No abdominal distension Musc Other: ?Examination of the ? Neck reveals no tenderness. ?Range of motion of the? is limited in all planes especially extension secondary to stiffness. Skin General: normal color Neuro General: Yes oriented to person, Yes oriented to place, Yes oriented to time, Yes normal cognition and Yes no meningeal signs ?Cranial Nerves: Yes CN's II-XII intact bilaterally ?Other: ?Motor: ? Strength is decreased diffusely in the upper extremities and seems to be normal in the bilateral lower extremities except the hip flexors which were slightly decreased. ?Sensory: Sensation is intact to light touch throughout the upper and lower extremities bilaterally. Reflexes: ? Deep tendon reflexes are 3 to 4+ throughout ?Gait: Gait, station, and transfers are independent and steady for short periods of time and over short distances with the use of walker.? There likely unstable without it.? Transfers are slow.? His gait is slow and shortened. Psych Appearance: grossly normal ?Mental status: Yes mental status grossly normal ?Mood: congruent mood ?Affect: Yes normal affect ?Speech/Movement: Normal speech and movement present ?Attitude: Yes cooperative ?Thought Content: Normal thought content present Assessment and Plan Assessment and plan (1) Chronic back pain: Code(s): M54.9 - Dorsalgia, unspecified; G89.29 - Other chronic pain Status: Acute (2) Foraminal stenosis of lumbar region: Code(s): M48.061 - Spinal stenosis, lumbar region without neurogenic claudication Status: Acute Plan Rodriguez underwent a successful dorsal column stimulator trial and has radicular discomfort as well in his right lower extremity likely related to the foraminal stenosis at L3-4. As I cannot deal with all the problems in his back with a simple surgery, and cannot confidently recommended him complex surgery, I recommend placing the dorsal column stimulator that was recently trialed and at the same anesthetic also decompressing the right neural foramen at L3-4. I described to him that operation, its risks, potential benefits, the operative and postoperative course in detail and answered all his questions personally. We discussed risks including but not limited to permanent neurologic deficit related to injury of the spinal cord or nerve roots, need for reoperation secondary to infection, bleeding, CSF leak, adjacent level disease, recurrent or residual pathology or instability, failure of the procedure to relieve his pain or symptoms, persistent pain, medical complications related to anesthesia or surgery, etc.. We specifically discussed the potential complications of movement or migration of the device requiring revision, infection of the device requiring it is temporary removal and later replacement and of hematoma formation in the epidural space causing compression of the spinal cord and potential severe neurologic deficit or paraplegia and requiring reoperation. He indicates understanding and elects to proceed with that operation.
--- NOTE | 2024-08-05 10:33 | WPDHPUPDATE1 ---
History and Physical Update Update Date/Time: 08/05/24 10:33 History and Physical has been reviewed, including an updated exam of the patient. There are NO changes in the patient's condition. Risks, benefits, and alternatives have been discussed and questions answered. Patient agrees to proceed with procedure.
[2024-08-05] MEDS: ceFAZolin 2 GM/D5W 50 ML 2 GM/50 ML BAG IVPB (10:39)
[2024-08-05] MEDS: LIDO 1%/EPINEPHRINE 1:100,000 50 ML VIAL 20 ML INFILTRATE (11:30)
[2024-08-05] MEDS: VANCOMYCIN HCL 1,000 MG VIAL 1000 MG TOPICAL (11:31)
[2024-08-05] MEDS: fentaNYL CITRATE INJ (*CRX) 100 MCG/2 ML VIAL 25 MCG IV PUSH ×7 (12:45→13:45)
[2024-08-05] MEDS: HYDROmorphone HCL INJ (*CRX) 1 MG/ML SYR 0.5 MG IV PUSH ×3 (13:53→14:41)
--- NOTE | 2024-08-05 16:12 | ADMGEN ---
This patient, Rodriguez Costa, was admitted to [facility] Room 330-01. Patient/family oriented to hospital policies and general routines including ID bracelet, bed and alarms, visiting hours, pain management, procedures, bathroom and other care routines, personal items, smoking policy, room service/diet, and visiting hours. Information on how to activate the Rapid Response Team has been discussed. Patient/Family are encouraged to report perceived risks to care and to ask questions if they do not understand what they are told or what they should do.
[2024-08-05] MEDS: MORPHINE SULFATE (*CRX) 2 MG/ML INJ IV PUSH ×2 (16:19→20:18)
[2024-08-05] MEDS: KCL 20 MEQ/D5/0.45% SOD CHL 1,000 ML 100 ML IV CONT (16:23)
[2024-08-05] MEDS: HYDROcodone/acetaminophen (*CRX) 10-325 MG TABLET 1 TAB PO ×2 (18:01→23:14)
[2024-08-05] MEDS: DOCUSATE SODIUM 100 MG CAPSULE PO (20:18)
[2024-08-05] MEDS: LATANOPROST 0.005% OP SOLN 2.5 ML BTL 1 DROP EACH EYE (20:40)
[2024-08-05] MEDS: MELATONIN 5 MG TABLET 10 MG PO (23:17)
[2024-08-06 00:45] VITALS: BP 114/65; PULSE 63; RESP 18; TEMP 36.9; O2SAT 95
[2024-08-06] MEDS: MORPHINE SULFATE (*CRX) 2 MG/ML INJ IV PUSH ×3 (03:11→13:52)
[2024-08-06] MEDS: HYDROcodone/acetaminophen (*CRX) 10-325 MG TABLET 1 TAB PO ×2 (04:23→09:14)
[2024-08-06] MEDS: ONDANSETRON INJ 4 MG/2 ML VIAL IV PUSH (04:26)
[2024-08-06 04:50] VITALS: BP 112/53; PULSE 64; RESP 16; TEMP 36.9; O2SAT 97
[2024-08-06] MEDS: DOXAZOSIN MESYLATE 4 MG TABLET 8 MG PO (09:15)
[2024-08-06] MEDS: DOCUSATE SODIUM 100 MG CAPSULE PO (09:15)
[2024-08-06 10:41] VITALS: BP 109/54; PULSE 62; RESP 16; TEMP 37.2; O2SAT 94
--- NOTE | 2024-08-16 13:23 | W.PM.PROC2 ---
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 He was then turned into the prone position on a Lonnie frame. The operation on his back was examined, marked for incision, prepped and draped in routine sterile fashion. Incision was marked over the L3-4 spinous processes in the midline, transversely in the left flank and longitudinally in the thoracic spine based on the T10 pedicles. These areas were injected with 0.5% lidocaine with [id number] epinephrine. Intravenous antibiotics given prior to incision. Incision was made with a 10 blade scalpel down to the lumbodorsal fascia. A subperiosteal dissection of the muscle soft tissue away from the spinous process and lamina at L3-4 and in the thoracic spine was performed with a subperiosteal elevator and Bovie cautery. In the left flank pocket was created once cm deep in the tissue using curved Alejandro scissors and toothed forceps. Bleeding was stopped bipolar cautery. Verifying x-rays were obtained to verify the level of operation. At L3-4 on the Right a Midas Ariel drill was used to perform a lateral resection of the pars and facet until the soft contents of the foramen were encountered. Under microscopy Kerrison punches and curved curettes were used to lift the yellow ligament and remove it piecemeal exposing the nerve below. This was reflected superiorly. The ligament was entered using an 11 blade scalpel. An Miguel curette, curved curette and Aleman rongeur were used to push free and removed fragments of herniated disc from beneath the nerve. This was done until a nerve hook could be placed proximally and distally to confirm lack of compression. At the thoracic incision laminectomies were performed at T9-10 and T8-9 using a Leksell rongeur, Kerrison punches and curved curettes until a short wide area of the dura was uncovered. The dorsal epidural space was cannulated with the lead trial, a curved malleable retractor, a dental instrument and a curved curette. The lead was then placed into the dorsal epidural space until it was confirmed to be behind the T8 and T9 vertebral bodies in the midline. An anchor was attached 1 of the wires which was attached to the superior spinous process using a 3-0 Prolene suture. Tension relief loops were placed into both of the wires which were then buried the flank incision. Here they were inserted into the generator slots and secured there using the small screwdriver for that purpose. Impedance testing was carried out to confirm good connectivity which was confirmed. The pocket and all incisions were copiously irrigated with bacitracin irrigation. The generator was then placed in the pocket with excess wire coiled up underneath it and with vancomycin impregnated pellets around the device. The rest of the pellets were spread above and below the fascia at the thoracic incision. The thoracic and lumbar fascia were closed with 2-0 Vicryl interrupted sutures. All incisions were closed with 3-0 Vicryl buried interrupted sutures in the dermis and a running 4-0 Monocryl subcuticular stitch in the skin and were dressed with Dermabond. The patient was allowed to wake up in the operating room and was taken to the recovery room in stable condition. There were no immediate complications of this operation. All counts were reported correct at the end of the case. Blood loss was 30 cc. The patient was neurologically at his baseline postoperatively. Estimated Blood Loss 30 Urine Output 100 Complications None Condition Stable Disposition PACU [facility] Billing Surgery - Charge Forward: Surgery Billing
== END 2024-08-06 17:05 | disposition home or self-care (01) ==
LOC: ANHSURGERY 07:27 → ANH3MEDSUR 16:00
PROVIDERS: PCP Family Medicine; Visit Provider Neurological Surgery
PROC: (CPT 63005; principal; 2024-08-05 09:30)
PROC: (CPT 63685; 2024-08-05 09:30)
DX: M48.061 Spinal stenosis, lumbar region without neurogenic claudication (principal); M43.06 Spondylolysis, lumbar region; M43.02 Spondylolysis, cervical region; L57.0 Actinic keratosis; F41.9 Anxiety disorder, unspecified; N40.0 Benign prostatic hyperplasia without lower urinary tract symptoms; R01.1 Cardiac murmur, unspecified; G89.29 Other chronic pain; M54.50 Low back pain, unspecified; I10 Essential (primary) hypertension; K21.9 Gastro-esophageal reflux disease without esophagitis; K74.60 Unspecified cirrhosis of liver; N32.81 Overactive bladder; G62.9 Polyneuropathy, unspecified; I73.9 Peripheral vascular disease, unspecified; I47.10 Supraventricular tachycardia, unspecified; Z79.891 Long term (current) use of opiate analgesic; Z98.890 Other specified postprocedural states; Z98.1 Arthrodesis status; Z87.891 Personal history of nicotine dependence; Z86.79 Personal history of other diseases of the circulatory system; Z85.828 Personal history of other malignant neoplasm of skin; Z85.46 Personal history of malignant neoplasm of prostate; Z80.0 Family history of malignant neoplasm of digestive organs; Z82.49 Family history of ischemic heart disease and other diseases of the circulatory system
CPT/HCPCS: 63685; 63655; 97161; 97165; 97530; 97535; 99199; A9270; C1713; C1778; C1820; J0330; J0690; J1100; J1171; J2003; J2004; J2270; J2405; J2704; J3010; J3370; J3480; J7120

== ENCOUNTER 2024-12-10 19:51 | Observation (INO) | payer MEDICARE, SELFPAY ==
--- NOTE | ~2024-12-10 | XR_ITS ---
EXAMINATION: XR chest 1V portable DATE: 12/10/2024 20:22 INDICATION: Chest pain. TECHNIQUE: A single frontal view of the chest was obtained. COMPARISON: Chest 2 views 01/20/2019 FINDINGS: There is no pneumonia, pleural effusion, or pneumothorax. The heart size is normal. Epidura l electrodes are noted. IMPRESSION: 1. No acute cardiopulmonary disease. Reviewed, dictated and finalized at location A. ESSORI PROGRAM DIRECTOR
--- NOTE | ~2024-12-10 | CT_ITS ---
EXAMINATION: CTA chest abdomen pelvis DATE: 12/10/2024 21:18 INDICATION: Chest pain. Shortness of breath. TECHNIQUE: Computed tomographic angiography (CTA) of the chest, abdomen, and pelvis was performed wit h 100 mL Omnipaque-350 intravenous contrast. Automated exposure control and iterative reconstruction technique were employed. The dose-length product was 716.15 mGy-cm. Maximum intensity projection 3D-r econstructions of the aorta and other arteries were constructed by the technologist on a separate wor kstation. COMPARISON: CT abdomen and pelvis 11/11/2023 FINDINGS: CHEST CTA: There is mild scarring at the lung apices. There is mild dependent atelectasis bilaterally. The heart size is normal. No pericardial effusion. Aortic atherosclerosis is noted. No aneurysm or dissection. ABDOMEN AND PELVIS CTA: The liver demonstrates surface nodularity, consistent with cirrhosis. There is a 7 mm cyst in the pedro luis er. The gallbladder, spleen, pancreas, and adrenal glands are normal. There is cortical thinning of t he kidneys. There is chronic wall thickening of the bladder with a diverticulum on the left. There ar e no dilated loops of bowel. There are changes of appendectomy. There are no pathologically enlarged lymph nodes. There is no free intraperitoneal fluid. There is mild aortic atherosclerosis. Epidural e lectrodes are noted. There is severe lumbar spondylosis. There are changes of anterior and posterior fusion procedures at L4-L5. IMPRESSION: 1. Mild aortic atherosclerosis. No aneurysm or dissection. 2. Cirrhosis of the liver. Reviewed, dictated and finalized at location A. NESS DATABASE ANALYST
--- OUTSIDE RECORDS SUMMARY | 2024-12-10 19:53 | XMS_ITS | Referral Summary ---
Author Organization [facility] Address [address] [place] [address] Care Team Providers Care Moss Bleacher Name Role Phone Zackery Randle MD Primary Care Provider [phone] Source Comments [facility],non-owned Affiliates and Associated Physician Practices is amultiple site organization consisting of ambulatory clinics and hospital sitesin [place], [place], [place] and [place]. This disclosure is being madepursuant to the Care Everywhere program and may not contain all information available regarding this patient. Last updated 18.[facility] Allergies No known active allergies Medications * Be aware that medications may not be up to date on this document. Alwaysverify current medications with the patient. Medication Sig Dispensed Refills Start Date End Date Status HYDROcodone-acetaminop hen ([place]) 5-325 MG tablet Take 1 (one) tablet by mouth every 6 hours as needed pain 10/26/2022 Active doxazosin (Cardura) 8 MG tablet Take 1 (one) tablet by mouth once daily 10/02/2022 Active valsartan (Diovan) 80 MG tablet Take 1 (one) tablet by mouth once daily Active ascorbic acid (Vitamin C) 250 MG chewable tablet Take by mouth once daily Active cyanocobalamin (Vitamin B-12) 1000 MCG tablet Take 1 (one) tablet by mouth once daily Active Active Problems Problem Noted Date Diagnosed Date Solitary pulmonary nodule 12/15/2014 Overview (01/21/2018): 04/2014: [address] abd: A 4 mm right lower lobe pulmonary nodule. According to the Fleischner criteria, without risk factors for lung cancer no follow up is needed; but if the patient has risk factors for lung cancer then recommend follow-up at 12 months and if no change, no further imaging needed. Cirrhosis of liver 12/15/2014 Overview (11/06/2022): 04/2014: [address]: No lesions. A 4 mm right lower lobe pulmonary nodule. 11/06/22 Fibroscan CAP 253, LSM 6.5 kPa Chronic viral hepatitis C 12/15/2014 Overview (01/21/2018): SVR with 3 mths sim/sof 08/2014 Social History Tobacco Use Types Packs/Day Years Used Date Smoking Tobacco: Former Cigarettes Q uit: 03/17/1960 Smokeless Tobacco: Former Tobacco Cessation:Counseling Given: Not Answered Alcohol Use Standard Drinks/Week Comments Yes 5 (1 standard drink = 0.6 oz pur e alcohol) ocassional Sex and Gender Information Value Date Recorded Sex Assigned at Not on file Gender Identity Not on file Sexual Orientation Not on file Last Filed Vital Signs Vital Sign Reading Time Taken Comments Blood Pressure 107/58 11/06/2022 12:[address] [employer] Pulse 65 11/06/2022 12:[address] [employer] Temperature 36.7 C (98 F) 11/06/2022 12:[address] [employer] Respiratory Rate 18 11/06/2022 12:[address] [employer] Oxygen Saturation 95% 11/06/2022 12:[address] [employer] Inhaled Oxygen Concentration - - Weight 80.7 kg (178 lb) 11/06/2022 12:[address] [employer] Height 175.3 cm (5' 9 ) 11/06/2022 12:[address] [employer] Body Mass Index 26.29 11/06/2022 12:[address] [employer] Plan of Treatment Not on file Care Teams Moss Bleacher Relationship Specialty Start Date End Date Zackery Randle MD [address] [place] [address] PCP - General 12/18/14
--- OUTSIDE RECORDS SUMMARY | 2024-12-10 19:53 | XMS_ITS | Patient Health Summary ---
Author Organization [facility] [employer] Address [address] [place] [address] Care Team Providers Care [employer] Tube Bender Name Role Phone Zackery Randle MD Primary Care Provider [phone] Note from [facility],non-owned Affiliates and Associated Physician Practices is amultiple site organization consisting of ambulatory clinics and hospital sitesin [place], [place], [place] and [place]. This disclosure is being madepursuant to the Care Everywhere program and may not contain all information available regarding this patient. Last updated 18.[facility] Allergies No known active allergies Medications * Be aware that medications may not be up to date on this document. Alwaysverify current medications with the patient. * HYDROcodone-acetaminophen (Windsor) 5-325 MG tablet(Started 10/26/2022) Take 1 (one) tablet by mouth every 6 hours as needed pain * doxazosin (Cardura) 8 MG tablet(Started 10/02/2022) Take 1 (one) tablet by mouth once daily * valsartan (Diovan) 80 MG tablet Take 1 (one) tablet by mouth once daily * ascorbic acid (Vitamin C) 250 MG chewable tablet Take by mouth once daily * cyanocobalamin (Vitamin B-12) 1000 MCG tablet Take 1 (one) tablet by mouth once daily Active Problems Problem Noted Date Diagnosed Date Solitary pulmonary nodule 12/15/2014 Cirrhosis of liver 12/15/2014 Chronic viral hepatitis C 12/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 Social History Tobacco Use Types Packs/Day Years [...] Comments Blood Pressure 107/58 11/06/2022 12:40 PM PREPARER Pulse 65 11/06/2022 12:40 PM PREPARER Temperature 36.7 C (98 F) 11/06/2022 12:40 PM PREPARER Respiratory Rate 18 11/06/2022 12:40 PM PREPARER Oxygen Saturation 95% 11/06/2022 12:40 PM PREPARER Inhaled Oxygen Concentration - - Weight 80.7 kg (178 lb) 11/06/2022 12:40 PM PREPARER Height 175.3 cm (5' 9 ) 11/06/2022 12:40 PM PREPARER Body Mass Index 26.29 11/06/2022 12:40 PM PREPARER Procedures * HEPATITIS C RNA QUANTITATIVE(Performed 11/14/2022) Performed for Other cirrhosis of liver (HCC) * ALPHA FETOPROTEIN BLOOD TUMOR MARKER(Performed 11/14/2022) Performed for Other cirrhosis of liver (HCC) * PT-INR(Performed 11/14/2022) Performed for Other cirrhosis of liver (HCC) * COMPREHENSIVE METABOLIC PANEL(Performed 11/14/2022) Performed for Other cirrhosis of liver (HCC) * CBC W/O DIFFERENTIAL(Performed 11/14/2022) Performed for Other cirrhosis of liver (HCC) * IA LIVER ELASTOGRAPHY(Performed 11/06/2022) Performed for Other cirrhosis of liver (HCC) * CT ABDOMEN MULTI PHASE W CONT(Performed 06/30/2015) * ALPHA FETOPROTEIN BLOOD TUMOR MARKER(Performed 06/15/2015) * FERRITIN(Performed 06/15/2015) * LIPASE BLOOD(Performed 06/15/2015) * AMYLASE BLOOD(Performed 06/15/2015) * COMPREHENSIVE METABOLIC PANEL(Performed 06/15/2015) * CBC W AUTO DIFFERENTIAL(Performed 06/15/2015) * PT-INR [facility](Performed 06/15/2015) * CBC W AUTO DIFFERENTIAL(Performed 06/15/2015) * TESTOSTERONE MALE FREE(Performed 12/15/2014) * TESTOSTERONE TOTAL MALE(Performed 12/15/2014) * FOLATE RBC(Performed 12/15/2014) * VITAMIN B12(Performed 12/15/2014) * HEPATITIS C REAL-TIME PCR QUANTASURE(Performed 12/03/2014) * COMPREHENSIVE METABOLIC PANEL(Performed 12/03/2014) * CBC W AUTO DIFFERENTIAL(Performed 12/03/2014) * HEPATITIS C REAL-TIME PCR QUANTASURE(Performed 09/14/2014) * COMPREHENSIVE METABOLIC PANEL(Performed 09/14/2014) * CBC W AUTO DIFFERENTIAL(Performed 09/14/2014) * HEPATITIS C REAL-TIME PCR QUANTASURE(Performed 06/23/2014) * COMPREHENSIVE METABOLIC PANEL(Performed 06/23/2014) * CBC W AUTO DIFFERENTIAL(Performed 06/23/2014) * CT ABDOMEN MULTI PHASE W CONT(Performed 05/07/2014) * CREATININE BLOOD - POCT (IP) [facility](Performed 05/07/2014) * CBC W AUTO DIFFERENTIAL(Performed 03/17/2014) * CBC W AUTO DIFFERENTIAL(Performed 03/17/2014) * HEPATITIS C GENOTYPE(Performed 03/17/2014) * COMPREHENSIVE METABOLIC PANEL(Performed 03/17/2014) * PT-INR [facility](Performed 03/17/2014) * BRIANNA W/REFLEX IFA PATTERN(Performed 03/17/2014) * MITOCHONDRIAL ANTIBODY SCREEN(Performed 03/17/2014) * SMOOTH MUSCLE ANTIBODY(Performed 03/17/2014) * [id number] BLOOD PHENOTYPING PANEL(Performed 03/17/2014) * HEPATITIS C RNA QUANTITATIVE(Performed 03/17/2014) * HEPATITIS B SURFACE ANTIGEN W RFLX CONFIRMATION(Performed 03/17/2014) * HEPATITIS A ANTIBODY(Performed 03/17/2014) * HEPATITIS B CORE ANTIBODY TOTAL(Performed 03/17/2014) * HEPATITIS B SURFACE ANTIBODY(Performed 03/17/2014) * FERRITIN(Performed 03/17/2014) * TRANSFERRIN(Performed 03/17/2014) * IRON BLOOD(Performed 03/17/2014) Results * HEPATITIS C RNA QUANTITATIVE (11/14/2022 11:09 AM PREPARER) Only the most recent of2 resultswithin the time period is included. Hepatitis C Virus RNA, Quantitative Real Time PCR <15 NOT DETECTED NOT DETECTED IU/mL [facility] Hepatitis C Virus RNA, Quantitative Real Time PCR <1.18 NOT DETECTED NOT DETECTED Log IU/mL [facility] Comment: This test was performed using Real-Time Polymerase Chain Reaction. Reportable Range: 15 IU/mL to 100,000,000 IU/mL (1.18 Log IU/mL to 8.00 Log IU/mL). The analytical performance characteristics of this assay have been determined by [employer]. The modifications have not been cleared or approved by the FDA. This assay has been validated pursuant to the CLIA regulations and is used for clinical purposes. For more information on this test, go to: http://education.Anergis/faq/ECM34a0 (This link is being provided for informational/ educational purposes only.) Test Performed at: [facility] [address] [place] [address] KRYSTAL RUBIO DO,MPH Blood BLOOD SPECIMEN / Unknown 11/14/2022 11:09 AM PREPARER 11/14/2022 11:09 AM PREPARER Harry Kinsey MD LAB - CHEMISTRY GUS ZAMBRANO Performing Organization Address [facility] Co de Phone Number [facility] [address] [place] [address] * ALPHA FETOPROTEIN BLOOD TUMOR MARKER (11/14/2022 11:09 AM PREPARER) Only the most recent of2 resultswithin the time period is included. Alpha-Fetoprotei n Tumor Marker 3.8 <6.1 ng/mL [facility] Comment: This test was performed using the Derrek Columbia chemiluminescent method. Values obtained from different assay methods cannot be used interchangeably. AFP levels, regardless of value, should not be interpreted as absolute evidence of the presence or absence of disease. Test Performed at: [facility] [address] [address] [place] [address] GRAHAM MILLER Blood BLOOD SPECIMEN / Unknown 11/14/2022 11:09 AM PREPARER 11/14/2022 11:09 AM PREPARER Harry Kinsey MD LAB - CHEMISTRY GUS ZAMBRANO Performing Organization Address [facility] Co de Phone Number [facility] [address] [place] [address] * PT-INR (11/14/2022 11:09 AM PREPARER) [facility] INR 1.0 [facility] Comment: Reference Range 0.9-1.1 Moderate-intensity Warfarin Therapy 2.0-3.0 Higher-intensity Warfarin Therapy 3.0-4.0 PT 10.5 9.0 - 11.5 sec [facility] Comment: For additional information, please refer to http://education.Anergis/faq/WLG973 (This link is being provided for informational/ educational purposes only.) Test Performed at: [id number] [address] MATTHEW MCMAHON MD Blood BLOOD SPECIMEN / Unknown 11/14/2022 11:09 AM PREPARER 11/14/2022 11:09 AM PREPARER Harry Kinsey MD LAB - COAGULATION OR DERABLES Performing Organization Address City/State/[facility] Co de Phone Number [address] [address] * (ABNORMAL) CBC W/O DIFFERENTIAL (11/14/2022 11:09 AM PREPARER) [facility] White Blood Cell Count 5.6 3.8 - 10.8 Thousand/u L [facility] RBC 3.73(L) 4.20 - 5.80 Million/uL [facility] Hemoglobin 13.3 13.2 - 17.1 g/dL [facility] Hematocrit 38.2(L) 38.5 - 50.0 % [facility] MCV 102.4(H) 80.0 - 100.0 fL [facility] MCH 35.7(H) 27.0 - 33.0 pg [facility] MCHC 34.8 32.0 - 36.0 g/dL [facility] RDW 12.3 11.0 - 15.0 % [facility] Platelet Count 161 140 - 400 Thousand/u L [facility] MPV 11.1 7.5 - 12.5 fL [facility] Comment: Test Performed at: [address] [address] [address] KRYSTAL RUBIO DO,MPH Blood BLOOD SPECIMEN / Unknown 11/14/2022 11:09 AM PREPARER 11/14/2022 11:09 AM PREPARER Harry Kinsey MD LAB - HEMATOLOGY ORD ERABLES Performing Organization Address [facility]/ZIP Co de Phone Number [facility] [address] [place] [phone] * COMPREHENSIVE METABOLIC PANEL (11/14/2022 11:09 AM PREPARER) Only the most recent of6 resultswithin the time period is included. Glucose 94 65 - 99 mg/dL [facility] Comment: Fasting reference interval BUN 16 7 - 25 mg/dL [facility] Creatinine 0.88 0.70 - 1.28 mg/dL [facility] eGFR by Cystatin C 88 > OR = 60 mL/min/1. 73m2 [facility] Comment: The eGFR is based on the CKD-EPI 2020 equation. To calculate the new eGFR from a previous Creatinine or Cystatin C result, go to https://www.kidney.org/professionals/ kdoqi/gfr%5Fcalculator BUN/Creatinine Ratio NOT APPLICABLE (calc) [facility] Sodium 139 135 - 146 mmol/L [facility] Potassium 4.5 3.5 - 5.3 mmol/L [facility] Chloride 104 98 - 110 mmol/L [facility] CO2 29 20 - 32 mmol/L [facility] Calcium 9.5 8.6 - 10.3 mg/dL [facility] Protein Total 7.2 6.1 - 8.1 g/dL [facility] Albumin 4.3 3.6 - 5.1 g/dL [facility] Globulin Total 2.9 1.9 - 3.7 g/dL (calc) [facility] Albumin/Globuli n Ratio 1.5 1.0 - 2.5 (calc) [facility] Bilirubin Total 0.6 0.2 - 1.2 mg/dL [facility] Alkaline Phosphatase 72 35 - 144 U/L [facility] AST 19 10 - 35 U/L [facility] ALT 14 9 - 46 U/L [facility] Comment: Test Performed at: [facility] [address] [place] [address] KRYSTAL RUBIO DO,MPH Blood BLOOD SPECIMEN / Unknown 11/14/2022 11:09 AM PREPARER 11/14/2022 11:09 AM PREPARER Harry Kinsey MD LAB - CHEMISTRY GUS ZAMBRANO Performing Organization Address [facility] Co de Phone Number [facility] [address] [place] [phone] * IA LIVER ELASTOGRAPHY (11/06/2022 1:05 PM PREPARER) Narrative Shiraz Wilson MD - 11/06/2022 1:05 PM PREPARER Shiraz Wilson MD 11/06/2022 5:01 PM Diagnosis: Other cirrhosis of liver (CMS/HCC) RN verified patient has no implanted devices and NPO for prior 3 hours. Patient stated he had a Boost drink approximately 2 hours ago. Date of Exam: 11/06/2022 Liver Stiffness: (LSM, kPa) median: 6.5 IQR (interquartile range): 0.5 IQR/Median% (ideally < 30%): 8% CAP (controlled attenuation parameter): 253 Technical Difficulty: None Ordering Provider: Kain Kyle MD Phone Fax Fibroscan interpretation: I have personally reviewed the Fibroscan report and associated tracings. The calculated Liver Stiffness Measurement (LSM, kPa) indicates that: The probability of advanced liver fibrosis is: low. The loss of ultrasound signal, (controlled attenuation parameter, CAP [dB/m]), indicates that the probability of hepatic steatosis is: moderate. Shiraz Wilson MD The following criteria are used to indicate the probability of advanced (stage 3-4) fibrosis: < 7.0 kPa: low 7.0-8.9 kPa: low to moderate 9.0-14.9 kPa: moderate 15-20 kPa: high > 20 kPa: very high Liver stiffness > 20 kPa is also associated with a high probability of complications of portal hypertension including varices and ascites. Liver stiffness > 50 kPa is associated with a high risk of variceal bleeding. These interpretations are based on the following published data: Sukumar PJ, Giovanny M, Ashley M, et al. Accuracy of FibroScan controlled attenuation parameter and liver stiffness measurement in assessing steatosis and fibrosis in patients with nonalcoholic fatty liver disease. Gastroenterology 2019;156:4224-3626. Niyah MS, Joe R, Van Theodora ML, et al. Vibration-controlled transient elastography to assess fibrosis and steatosis in patients with nonalcoholic fatty liver disease. Clin Gastroenterol Hepatol 2019;17:156-163. Note: 1. Fibroscan cannot reliably identify earlier stages of fibrosis (ie distinguish F0 from F1 and F2) and thus a histologic stage cannot be predicted from the Fibroscan reading. 2. Assessing the likelihood of advanced fibrosis in patients with indeterminate liver stiffness measurement (LSM) by Fibroscan (e.g., 8-15 kPa) can be improved by also calculating the FIB4 score (Stacyuke et al. Hepatology Communications 2019;3:0230-9487) or NAFLD Fibrosis score (Canales et al. Clinical Gastroenterology and Hepatology 2019;17:5935-5679. from routine clinical data. 3. Liver stiffness can be increased by factors other than fibrosis including passive congestion, infiltrative processes, active alcoholism, biliary obstruction and marked inflammation. The interpretation of the Fibroscan result provided above may not have taken such clinical factors into account. Disease etiology also influences Fibroscan cutoff values for fibrosis stages and the following cutoffs have been proposed (Megha et al, Clin Gastro Hepatol 2015; 13:27-36): Cutoffs for Stage 3 and Stage 4 fibrosis respectively: Hepatitis B: >9 and >11.7 kPa Hepatitis C: >9.5 and >12.5 kPa HCV-HIV: >11 and >14 kPa Cholestatic liver diseases: >10 and >17.9 kPa NAFLD/WELLS: >10 and >14 kPa CAP estimates of steatosis: normal <200 dB/m mild 200 to 250 dB/m moderate 250-290 dB/m substantial > 290 dB/m (Note that Fibroscan is not a quantitative measure of liver fat.) These criteria are estimates and may change as additional supporting data becomes available. [email or web address] Harry Kinsey MD PROCEDURE/MINOR SURG ICAL ORDERABLES * CT ABDOMEN MULTI PHASE W CONT (06/30/2015 2:54 PM CDT) Only the most recent of2 resultswithin the time period is included. Anatomical Region Laterality Modality Other Impressions 06/30/2015 3:47 PM CDT Impression: 1. No arterial enhancing liver lesions with washout to suggest hepatocellular carcinoma. 2. Persistent subtle subcapsular arterial enhancement within segment 3 without washout. Continued routine surveillance is recommended. 3. Chronic liver disease and sequela of portal venous hypertension. This report was electronically signed by JEZ BLEVINS M.D. on 06/30/2015 3:47 PM . Narrative 06/30/2015 3:[address] abdomen with intravenous contrast, three-phase liver protocol. Comparison: 05/07/2014. Contrast: 150 mL of Omnipaque 350. History: Cirrhosis and right upper quadrant pain. Findings: The 4 mm right lower lobe pulmonary nodule is unchanged and likely benign. The visualized portions of the lung bases appear otherwise clear. There is no pleural or pericardial effusion. Liver surface nodularity indicates chronic liver disease. No arterially enhancing liver lesions with washout are seen to suggest hepatocellular carcinoma. There is a subcapsular region of arterial phase enhancement within the posterior aspect of segment 3 which measures 1.8 x 1.1 cm (series 6 image 68). This persists on the portal venous phase images but does not washout on delayed phase images. Subtle enhancement is seen in this region on the prior examination. No other arterial enhancing foci are identified. Subtle low attenuating focus within segment 5 measures 4 mm and is unchanged, likely representing a small cyst. The previously described enhancing focus within segment IVb is not visualized. The hepatic arterial anatomy is conventional. Portal vein and branches are patent. Small perigastric varices are noted. There is no intrahepatic or extrahepatic biliary ductal dilation. The gallbladder is decompressed. The spleen, pancreas, kidneys, and adrenal glands appear normal. There are no enlarged retroperitoneal or mesenteric lymph nodes. Incidental note is made of a circumaortic left renal vein. No significant free intraperitoneal fluid collections are identified. Diverticulosis is present. There is degenerative disc disease and facet arthropathy of the lower lumbar spine. Procedure Note Jez Blevins MD - 01/19/2018 CT abdomen with intravenous contrast, three-phase liver protocol. Comparison: 05/07/2014. Contrast: 150 mL of Omnipaque 350. History: Cirrhosis and right upper quadrant pain. Findings: The 4 mm right lower lobe pulmonary nodule is unchanged andlikely benign. The visualized portions of the lung bases appear otherwiseclear. There is no pleural or pericardial effusion. Liver surface nodularity indicates chronic liver disease. No arteriallyenhancing liver lesions with washout are seen to suggest hepatocellularcarcinoma. There is a subcapsular region of arterial phase enhancementwithin the posterior aspect of segment 3 which measures 1.8 x 1.1 cm (series 6 image 68). This persists on theportal venous phase images but does not washout on delayed phase images.Subtle enhancement is seen in this region on the prior examination. Noother arterial enhancing foci are identified. Subtle low attenuating focus within segment 5 measures 4 mmand is unchanged, likely representing a small cyst. The previouslydescribed enhancing focus within segment IVb is not visualized. Thehepatic arterial anatomy is conventional. Portal vein and branches are patent. Small perigastric varices arenoted. There is no intrahepatic or extrahepatic biliary ductal dilation. Thegallbladder is decompressed. The spleen, pancreas, kidneys, and adrenalglands appear normal. There are no enlarged retroperitoneal or mesentericlymph nodes. Incidental note is made of a circumaortic left renal vein. No significant free intraperitonealfluid collections are identified. Diverticulosis is present. There is degenerative disc disease and facet arthropathy of the lowerlumbar spine. IMPRESSION Impression: 1. No arterial enhancing liver lesions with washout to suggesthepatocellular carcinoma. 2. Persistent subtle subcapsular arterial enhancement within segment 3without washout. Continued routine surveillance is recommended. 3. Chronic liver disease and sequela of portal venous hypertension. This report was electronically signed by JEZ BLEVINS M.D. on 06/30/20153:47 PM . Selvin Dean MD CT ORDERABLES * PT-INR [facility] (06/15/2015 1:05 PM CDT) Only the most recent of2 resultswithin the time period is included. PT 12.7 12.1 - 14.8 Seconds [facility] INR 0.9 See Comment [facility] Comment: Suggested therapeutic range for low-intensity coumadin therapy for venous thromboembolism prophylaxis is an INR of 2.0-3.0. For high risk patients (Mitral Valve Prosthesis, Atrial Fibrillation, history of TIA/stroke), suggested prophylactic therapeutic range is an INR of 2.5-3.5. Blood specimen (specimen) BLOOD SPECIMEN / Unknown 06/15/2015 1:05 PM CDT 06/15/2015 1:24 PM CDT Narrative [facility] - 06/15/2015 1:41 PM CDT Is patient on Heparin, Argatroban or Dabigatran?->N Selvin Dean MD LAB - COAGULATION OR DERABLES [facility] [address] [place] [address], [facility] [phone] * (ABNORMAL) CBC W AUTO DIFFERENTIAL (06/15/2015 1:05 PM CDT) Only the most recent of7 resultswithin the time period is included. WBC 4.2 3.5 - 10.5 10 3/uL [facility] RBC 3.85(L) 4.30 - 5.70 10 6/uL [facility] Hemoglobin 13.8 13.5 - 17.5 g/dL [facility] Hematocrit 39.4 39.0 - 50.0 % [facility] MCV 102.3(H) 81.0 - 97.0 fL [facility] MCH 35.8(H) 28.0 - 34.0 pg [facility] MCHC 35.0 32.0 - 36.0 g/dL [facility] Platelet Count 109(L) 150 - 400 10 3/uL [facility] RDW-SD 45.9 36.0 - 50.0 fL [facility] RDW-CV 12.3 11.2 - 14.8 % [facility] MPV 10.3 9.3 - 12.8 fL [facility] Neutrophils % 56.4 35.0 - 70.0 % [facility] Lymphocytes % 28.7 19.7 - 55.1 % [facility] Monocytes % 10.3 3.0 - 15.0 % [facility] Eosinophils % 3.6 0.0 - 6.0 % [facility] Basophil % 1.0 0.0 - 1.5 % [facility] Neutrophils Absolute 2.4 1.6 - 7.0 10 3/uL [facility] Lymphocyte Absolute 1.2 0.8 - 2.9 10 3/uL [facility] Monocytes Absolute 0.43 0.14 - 0.66 10 3/uL [facility] Eosinophils Absolute 0.15 0.00 - 0.22 10 3/uL [facility] Basophils Absolute 0.04 0.00 - 0.06 10 3/uL [facility] Immature Granulocytes % 0.2 0.0 - 1.0 % [facility] Blood specimen (specimen) BLOOD SPECIMEN / Unknown 06/15/2015 1:05 PM CDT 06/15/2015 1:24 PM CDT Selvin Dean MD LAB - HEMATOLOGY NED MARTINI Performing Organization Address [facility]/ZIP Co de Phone Number [address] [phone] * LIPASE BLOOD (06/15/2015 1:05 PM CDT) Lipase 13 8 - 78 Units/L [facility] Blood specimen (specimen) BLOOD SPECIMEN / Unknown 06/15/2015 1:05 PM CDT 06/15/2015 1:24 PM CDT Selvin Dean MD LAB - CHEMISTRY GUS ZAMBRANO Performing Organization Address [facility] Co de Phone Number [address] [phone] * AMYLASE BLOOD (06/15/2015 1:05 PM CDT) Amylase 84 25 - 125 Units/L [facility] Blood specimen (specimen) BLOOD SPECIMEN / Unknown 06/15/2015 1:05 PM CDT 06/15/2015 1:24 PM CDT Selvin Dean MD LAB - CHEMISTRY GUS ZAMBRANO Performing Organization Address [facility] Co de Phone Number [address] [phone] * FERRITIN (06/15/2015 1:05 PM CDT) Only the most recent of2 resultswithin the time period is included. Ferritin 261 22 - 275 ng/mL [facility] Blood specimen (specimen) BLOOD SPECIMEN / Unknown 06/15/2015 1:05 PM CDT 06/15/2015 1:24 PM CDT Selvin Dean MD LAB - CHEMISTRY GUS ZAMBRANO Performing Organization Address City/[facility]/[place] [address], [facility] [phone] * FOLATE RBC (12/15/2014 1:56 PM PREPARER) Pathologist [facility] Folate Hemolysate 480.7 Not Estab. ng/mL [facility] Hematocrit 41.4 37.5 - 51.0 % [facility] Folate RBC 1161 499 - 1504 ng/mL [facility] Blood specimen (specimen) BLOOD SPECIMEN / Unknown 12/15/2014 1:56 PM PREPARER 12/15/2014 2:22 PM PREPARER Narrative [facility] - 12/16/2014 7:09 PM PREPARER Performed at: [address] [place] [id number] Service Or Work Dispatcher Chief: Maurizio Carpenter PhD, Phone: [phone] Selvin Dean MD LAB - CHEMISTRY GUS ZAMBRANO Performing Organization Address [facility]/ZIP Co de Phone Number [facility]) * TESTOSTERONE MALE FREE (12/15/2014 1:56 PM PREPARER) [facility] Testosterone Free Calculation 82 47 - 244 pg/mL [facility]) Comment: INTERPRETIVE INFORMATION: Testosterone, Free Kevin Stage IV 35 - 169 pg/mL Kevin Stage V 41 - 239 pg/mL The concentration of Free Testosterone is derived from a mathematical expression based on the constant for the binding of testosterone to Sex Hormone Binding Globulin (SHBG). Access complete set of age- and/or gender-specific reference intervals for this test in the [facility] Directory ([facility]). Blood specimen (specimen) BLOOD SPECIMEN / Unknown 12/15/2014 1:56 PM PREPARER 12/15/2014 2:22 PM PREPARER Selvin Dean MD LAB - CHEMISTRY GUS ZAMBRANO Performing Organization Address City/[facility]/ZIP Co de Phone Number [facility]) * TESTOSTERONE TOTAL MALE (12/15/2014 1:56 PM PREPARER) Pathologist [facility] Testosterone 642 300 - 720 ng/dL [facility] Comment: Total testosterone values may not reflect optimal concentrations in all individuals. Free or bioavailable testosterone measurements may provide supportive information. REFERENCE INTERVAL: Testosterone, Adult Male Access complete set of age- and/or gender-specific reference intervals for this test in the [facility] Test Directory ([facility]). Blood specimen (specimen) BLOOD SPECIMEN / Unknown 12/15/2014 1:56 PM PREPARER 12/15/2014 2:23 PM PREPARER Selvin Dean MD LAB - CHEMISTRY [facility]US [facility]BR[facility] [place]) * VITAMIN B12 (12/15/2014 1:56 PM PREPARER) [facility] Vitamin B12 712 213 - 816 pg/mL [facility] Blood specimen (specimen) BLOOD SPECIMEN / Unknown 12/15/2014 1:56 PM PREPARER 12/15/2014 2:23 PM PREPARER Selvin Dean MD LAB - CHEMISTRY GUS ZAMBRANO [address] [phone] * HEPATITIS C REAL-TIME PCR QUANTASURE (12/03/2014 10:00 AM PREPARER) Only the most recent of3 resultswithin the time period is included. [facility] Hepatitis C Virus RNA PCR Quantitative <15 NOT DETECTED <15 IU/mL [facility]) Hepatitis C Virus RNA Log IU/mL <1.18 NOT DETECTED <1.18 Log IU/mL [facility]) See Note [facility] ([facility]) Comment: Please note: The guidelines for the use of new anti-HCV therapies (boceprevir and telaprevir) recommend using a test method that detects plasma viral nucleic acid levels as low as 10 IU/mL. This assay has a Limit of Detection of 10-13 IU/mL and conforms to the recommendation. Quantitation of plasma HCV nucleic acid levels below 15 IU/mL (the Lower Limit of Quantitation for this test) may not be linear, and in this circumstance are reported as <15 IU/mL HCV RNA Detected . This test was performed using the AMARI(R)AmpliPrep/ AMARI(R)TaqMan(R)HCV Test, v2.0. The performance characteristics of this assay have been determined by [employer]. Performance characteristics refer to the analytical performance of the test. For more information on this test, go to: http://education.Anergis/faq/GLT85a3 Test Performed at: [facility] [place] [id number] [address] [facility] [place] [address] KRYSTAL RUBIO DO,MPH 12/03/2014 10:0 0 AM PREPARER 12/03/2014 10:01 AM PREPARER Selvin Dean MD LAB - SEROLOGY ORDER PIETER Performing Organization Address [facility] Co de Phone Number [facility] ([facility]) * CREATININE BLOOD - POCT (IP) [facility] (05/07/2014) [facility] Creatinine POCT 1.13 0.3 - 1.3 mg/dL [facility] eGFR POCT 60 60 ml/min [facility] 05/07/2014 Selvin Dean MD LAB - POINT OF CARE ORDERABLES Performing Organization Address [facility] Co de Phone Number [facility] * HEPATITIS C GENOTYPE (03/17/2014 3:50 PM CDT) [facility] Hepatitis C Genotype 1b Comment See Note [facility] ([place]) Comment: This assay can detect the six (6) major HCV Genotypes and their most common subtypes. Several clinical studies have demonstrated that Genotype 1 HCV may be more refractory to interferon monotherapy as well as to interferon plus ribavirin combination therapy. Sustained response rates are increased for Genotype 1 infected patients when therapy is given for 48 weeks instead of 24 weeks. This test was developed and its performance characteristics determined by [facility]. It has not been cleared or approved by the U.S. Food and Drug Administration. The FDA has determined that such clearance or approval is not necessary. This test is used for clinical purposes. It should not be regarded as investigational or for research. Blood specimen (specimen) 03/17/2014 3:50 PM CDT 03/17/2014 4:41 PM CDT Narrative [facility] ([place]) - 03/24/2014 3:19 PM CDT Performed at: - [address] [id number] Service Or Work Dispatcher Chief: Krystal Leon MD, Phone: [phone] Selvin Dean MD LAB - CHEMISTRY GUS ZAMBRANO [facility] ([place]) * BRIANNA W/REFLEX IFA PATTERN (03/17/2014 2:52 PM CDT) [facility] BRIANNA None Detected None Detected [facility] Blood specimen (specimen) BLOOD SPECIMEN / Unknown 03/17/2014 2:52 PM CDT 03/17/2014 4:43 PM CDT Selvin Dean MD LAB - SEROLOGY ORDER PIETER Performing Organization Address [facility] Co de Phone Number [address] [phone] * MITOCHONDRIAL ANTIBODY SCREEN (03/17/2014 2:52 PM CDT) [facility] Mitochondrial M2 Antibody 7.0 0.0 - 20.0 Units [facility] Comment: Mitochondrial M2 Antibody Numeric Result Interpretation: <20.1 Units: Negative 20.1 - 24.9 Units: Equivocal >24.9 Units: Positive Blood specimen (specimen) BLOOD SPECIMEN / Unknown 03/17/2014 2:52 PM CDT 03/17/2014 4:43 PM CDT Selvin Dean MD LAB - CHEMISTRY GUS ZAMBRANO Performing Organization Address [facility]/ZIP Co de Phone Number [address] [phone] * [id number] BLOOD PHENOTYPING PANEL (03/17/2014 2:52 PM CDT) Qtsbi-0-Nllijthvut n 156 90 - 200 mg/dL [facility] ([facility]) Phenotype (PI) MM [facility] ([facility]) Comment: Phenotype Population A-1-AT Concentration* Incidence % % of MM Ref. Range Mean MM 86.5% 100% (90-200) 145 MS 8.0% 81% (73-162) 118 MZ 3.9% 60% (54-120) 87 FM 0.4% 97% (87-194) 141 SZ 0.3% 39% (35- 78) 57 SS 0.1% 71% (64-142) 103 ZZ 0.05% 7% ( 6- 14) 10 FS 0.05% 66% (59-132) 96 FZ Unknown Unknown FF Unknown Unknown *A-1-AT concentration in the homozygous MM phenotype is taken as the reference normal. Deficiency in phenotypes is reported relative to this reference. Blood specimen (specimen) BLOOD SPECIMEN / Unknown 03/17/2014 2:52 PM CDT 03/17/2014 4:43 PM CDT Narrative [facility] ([facility]) - 03/20/2014 3:19 PM CDT Performed at: [address] [id number] Service Or Work Dispatcher Chief: Ed Ramey MD, Phone: [phone] Performed at: [address] [id number] Service Or Work Dispatcher Chief: Krystal Leon MD, Phone: [phone] Selvin Dean MD LAB - CHEMISTRY GUS ZAMBRANO [facility] ([facility]) * (ABNORMAL) TRANSFERRIN (03/17/2014 2:52 PM CDT) Transferrin 273 174 - 382 mg/dL [facility] Transferrin Saturation % 64(H) 16 - 50 % [facility] Blood specimen (specimen) BLOOD SPECIMEN / Unknown 03/17/2014 2:52 PM CDT 03/17/2014 4:43 PM CDT Selvin Dean MD LAB - CHEMISTRY ORDBrittni MUÑOZLES Performing Organization Address [facility]/ZIP Co de Phone Number [address] [phone] * SMOOTH MUSCLE ANTIBODY (03/17/2014 2:52 PM CDT) F-Actin Antibody IgG 13.1 0.0 - 19.9 Units [facility] Comment: F-Actin Antibody Numeric Result Interpretation: <20.0 Units: Negative 20.0 - 30.0 Units: Weak Positive >30.0 Units: Moderate to Strong Positive Blood specimen (specimen) BLOOD SPECIMEN / Unknown 03/17/2014 2:52 PM CDT 03/17/2014 4:43 PM CDT Selvin Dean MD LAB - SEROLOGY ORDER PIETER Performing Organization Address [facility] Co de Phone Number [address] [phone] * (ABNORMAL) IRON BLOOD (03/17/2014 2:52 PM CDT) Pathologist [facility] Iron 219(H) 50 - 175 mcg/dL [facility] Blood specimen (specimen) BLOOD SPECIMEN / Unknown 03/17/2014 2:52 PM CDT 03/17/2014 4:43 PM CDT Selvin Dean MD LAB - CHEMISTRY GUS ZAMBRANO Performing Organization Address [facility] Co de Phone Number [address] [phone] * HEPATITIS B SURFACE ANTIBODY (03/17/2014 2:52 PM CDT) Pathologist [facility] Hepatitis B Virus Surface Antibody Non-react felix Non-react felix [facility] Comment: < 8 mIU/mL Hepatitis B surface Antibody (HBsAb). Nonreactive for HBsAb - individual is considered not immune to Hepatitis B Virus infection. Hepatitis B Surface Antibody Quantitative 5.3 <8.0 mIU/mL [facility] Comment: Hepatitis B Surface Antibody Numeric Result Interpretation: Nonreactive: <8.0 mIU/mL Indeterminate: 8.0 - 12.0 mIU/mL Reactive: >12.0 mIU/mL Blood specimen (specimen) BLOOD SPECIMEN / Unknown 03/17/2014 2:52 PM CDT 03/17/2014 4:43 PM CDT Selvin Dean MD LAB - CHEMISTRY GUS ZAMBRANO Performing Organization Address City/[facility]/ZIP Co de Phone Number [address] [phone] * (ABNORMAL) HEPATITIS B CORE ANTIBODY (03/17/2014 2:52 PM CDT) Pathologist [facility] HBc Antibody Total Reactive(A ) Non-reacti ve [facility] Blood specimen (specimen) BLOOD SPECIMEN / Unknown 03/17/2014 2:52 PM CDT 03/17/2014 4:43 PM CDT Selvin Dean MD LAB - CHEMISTRY GUS ZAMBRANO Performing Organization Address [facility]/ZIP Co de Phone Number [address] [phone] * HEPATITIS B SURFACE ANTIGEN W RFLX CONFIRMATION (03/17/2014 2:52 PM CDT) [facility] Hepatitis B Virus Surface Antigen Screen Negative Negative [facility] ([facility]) Blood specimen (specimen) BLOOD SPECIMEN / Unknown 03/17/2014 2:52 PM CDT 03/17/2014 4:44 PM CDT Narrative [facility] ([place]) - 03/19/2014 6:19 AM CDT Performed at: 01 - [address] [id number] Service Or Work Dispatcher Chief: Ed Ramey MD, Phone: [phone] Selvin Dean MD LAB - CHEMISTRY GUS ZAMBRANO [facility] ([place]) * (ABNORMAL) HEPATITIS A ANTIBODY (03/17/2014 2:52 PM CDT) Pathologist [facility] Hepatitis A Virus Antibody Total Positive(A ) Negative [facility] ([place]) Blood specimen (specimen) 03/17/2014 2:52 PM CDT 03/17/2014 4:44 PM CDT Narrative [facility] ([place]) - 03/19/2014 6:19 AM CDT Performed at: - [address] [id number] Service Or Work Dispatcher Chief: Ed Ramey MD, Phone: [phone] Selvin Dean MD LAB - CHEMISTRY GUS ZAMBRANO [facility] Care Teams [employer] Tube Bender Relationship Specialty Start Date End Date Zackery Randle MD [address] [place] [address] PCP - General 12/18/14
--- OUTSIDE RECORDS SUMMARY | 2024-12-10 19:53 | XMS_ITS | Clinical Summary ---
Author Organization [facility] [address] Address [address] [place] [address] Care Team Providers Care Food Order Expediter Name Role Phone Jc Pham MD Unavailable Zackery Randle MD Primary Care Provider Allergies No known active allergies Medications HYDROcodone-kings taminophen (NORCO) 10-325 mg per tabletIndicatio ns:Pain Take 1 tablet by mouth daily as needed for pain Takes 7.5-325mg PRN Active doxazosin (CARDURA) 4 mg tablet Take 2 tablets (8 mg total) by mouth daily 01/30/2021 Active latanoprost (XALATAN) 0.005 % ophthalmic solution INSTILL 1 DROP IN BOTH EYES EVERY NIGHT 01/08/2024 Active Active Problems Problem Noted Date Diagnosed Date Rapid palpitations 11/05/2019 Near syncope 11/05/2019 Atrial tachycardia 04/30/2019 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 A 4 mm right lower lobe pulmonary nodule. Solitary pulmonary nodule 12/15/2014 Overview (04/09/2019): 04/2014: [address] abd: A 4 mm right lower lobe pulmonary nodule. According to the Fleischner criteria, without risk factors for lung cancer no follow up is needed; but if the patient has risk factors for lung cancer then recommend follow-up at 12 months and if no change, no further imaging needed. Surgical History Surgery Date Site/Laterality Comments ABLATION HERNIA REPAIR BLADDER SURGERY Medical History Medical History Date Comments Hypertension Heart valve disease Cancer (CMS/HCC) (HCC) prostate Arthritis Arrhythmia Family History Medical History Relation Name Comments Esophageal cancer Father Relation Name Status Comments Father (Age 79) Mother (Age 75) Social History Tobacco Use Types Packs/Day Years Used Date Smoking Tobacco: Former Smokeless Tobacco: Former Tobacco Cessation:Counseling Given: Not Answered Alcohol Use Standard Drinks/Week Comments Yes 1 (1 standard drink = 0.6 oz pur e alcohol) Personal Safety Answer Date Recorded Getting School Help Needed Not on file 11/23 Sex and Gender Information Value Date Recorded Sex Assigned at Not on file 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 Gender Identity Not on file Sexual Orientation Not on file Obstetrics History Last Filed Vital Signs Vital Sign Reading Time Taken Comments Blood Pressure 110/60 02/07/2024 3:40 PM CDT Pulse 66 02/07/2024 3:40 PM CDT Temperature 36.7 C (98 F) 01/24/2019 8:38 AM CDT Respiratory Rate 17 01/24/2019 8:38 AM CDT Oxygen Saturation 98% 02/07/2024 3:40 PM CDT Inhaled Oxygen Concentration - - Weight 78 kg (172 lb) 02/07/2024 3:40 PM CDT Height 175.3 cm (5' 9 ) 02/07/2024 3:40 PM CDT Body Mass Index 25.4 02/07/2024 3:40 PM CDT Plan of Treatment Health Maintenance Due Date Last Done Comments Depression Screening 1943 Fall Risk Assessment 1945 DTaP/Tdap/Td Vaccine (1 - Tdap) 1954 Hepatitis B Screening 1961 Zoster Vaccine (1 of 2) 1993 Well Visit 65+ 2008 Pneumococcal vaccine 65+ (2 of 2 - PPSV23) 08/29/2019 07/04/2019 Influenza Vaccine (#1) 2024 07/04/2019, 2017 Abdominal Aortic Aneurysm (AAA) Screen Completed , 05/07/2014 Insurance MEDICARE [employer] [facility] Address: [place] [id number] [place] [id number] MEDICARE [employer] [facility] Address: [facility] [address] [place] [address] MEDICARE SOLUTIONS Advance Directives For more information, please contact: [phone] * Full Code (Latest Code Status on File) Date Activated Date Inactivated Comments 01/23/2019 12:02 PM 01/24/2019 4:18 PM Care Teams Food Order Expediter Relationship Specialty Start Date End Date Zackery Randle MD [address] [place] [address] PCP - General 01/24/19 cJ Pham MD Consulting Physician Cardiology 01/24/19
--- OUTSIDE RECORDS SUMMARY | 2024-12-10 19:53 | XMS_ITS | Continuity of Care Document ---
Author Organization [facility] ter Address [address] [place] [address] Phone Care Team Providers Care Pierce And Shave Press Operator Name Role Phone Mini Sheriff OD Unavailable Unavailable Allergies, Adverse Reactions, Alerts Substance Reaction Status Criticality No Known allergies Medications Medication Instructions Dosage Effective Dates (start - stop) Status Comments metoprolol succ-hydrochloroth iazide ER 100 mg-12.5 mg tablet,ER 24 hr take 1 tablet by oral route every day - Active CARDURA (unknown strength) Not Available - Active VICODIN (unknown strength) Not Available - Active Procedures Procedure Date EYE EXAM & TREATMENT Advance Directives Directive Yes / No Effective Date File Name No Information Encounters Encounter Description Practice Location Reason(s) For Visit Diagnoses Date Provider Providers Copied on Encounter [facility], [address] [place], [place], [id number], tel:[phone] [place] vision is improved OS (chief complaint) No Information 3 Sharita Morse. [address], [place], [address], [place]. tel:[phone] [facility], [address] [place], [id number], [place] tel:[phone] [place] After-cataract, obscuring visionMacular degeneration (senile) of retina, unspecified 3 Tomás Ledbetter. [address], [place], [address], [place]. tel:[phone] [facility], [address] [facility] [place], [id number], [place] tel:[phone] Senile nuclear sclerosisMacular degeneration (senile) of retina, unspecifiedVitreo us degeneration 2 Whit Hamm. [address], [place], [address], [place]. tel:[phone] Family History Family Member Type Diagnosis Age At Onset Father Problem (finding) Cancer Payers Payer name Insurance type Covered libertarian ID Authoriza tion(s) No Information Social History Type Description Quantity Date Captured Comments Alcohol Use Details No Caffeine Use Details 1 cup per day Tobacco Use Status No Information Smoking Status Never smoker Sex Male Chief Complaint And Reason For Visit From encounter dated '01/21/2013 08:30'. vision is improved OS (chief complaint). Description: vision is improved OS Reason For Referral Reason For Referral No Information History Of Present Illness Encounter Date Complaint History Of Prese nt Illness vision is improved vision is imp roved OS no complaints no complaints OS Functional Status Date Functional Assessmen t No Information Instructions Date Instruction Additional Infor yared Opacified Capsule OS Condition: quality of life issue. Related to Opacified Capsule - Return in 1 year Related to Ma cular Degeneration Macular Degeneration OU Condition: established, stable. Symptoms: will continue to monitor. - Macular degeneration, dry type with stable vision. Will continue to monitor vision and the patient has been instructed to call with any vision changes. Related to Macular Degeneration - Return in 1-2 week s with Anatoly England MD for YAG Capsulotomy. Related to Opacified Capsule Opacified Capsule OD . Visually significant, quality of life issue, could improve with surgery. - Discussed all risks, benefits, alternatives, procedures and recovery. Patient understands changing glasses will not improve vision. Patient desires to have surgery, recommend yag capsulotomy OD. Related to Opacified Capsule - 1 year for Cline/ Dr. Sherman Related to Macular Degeneration - PRN Related to Vitre ous Detachment Macular Degeneration , OU- Mild - Macular degeneration dry type, with stable vision. recm to start AREDS and Amsler Grid monitoring, pt given instructions on testing OU and handout. Continue monitoring vision. Call immediately with vision changes. Related to Macular Degeneration - Return in 1 year(s ) for Cataract Evaluation, /7Dr. Sherman Related to Cataract, Nuclear Sclerosis Vitreous Detachment, OD - PVD accounts for pt's complaint. There is no evidence of retinal patholgy. All signs and risks of retinal detachment or tears were discussed in detail. If pt. notices any changes, contact office LETITIA, otherwise return for regular recall. Related to Vitreous Detachment Cataract, Nuclear Sc lerosis, OUnot affecting VA - Early cataract(s) accounts for patient's complaints. No treatment currently recommended due to VA level, Patient will monitor vision changes and contact us with any decrease in vision, will re-evaluate cataract on return visit. recm to change glasses. Pt given new Rx from Exam today. Related to Cataract, Nuclear Sclerosis Assessments Type Assessment Date No Information Patient Care Teams Name Effective Dates (start - stop) Status Members No Information
--- OUTSIDE RECORDS SUMMARY | 2024-12-10 19:53 | XMS_ITS | Clinical Summary ---
Author Organization [facility] [employer] Address [address] [facility] [place] [address] Care Team Providers Care Foundry Finisher Name Role Phone Zackery Randle MD Primary Care Provider [phone] Source Comments [facility] [employer],non-owned Affiliates and Associated Physician Practices is amultiple site organization consisting of ambulatory clinics and hospital sitesin [place], [place], [place] and [place]. This disclosure is being madepursuant to the Care Everywhere program and may not contain all information available regarding this patient. Last updated 18.[facility] [employer] Allergies No known active allergies Medications * Be aware that medications may not be up to date on this document. Alwaysverify current medications with the patient. Medication Sig Dispensed Refills Start Date End Date Status HYDROcodone-acetaminop hen ([place]) 5-325 MG tablet Take 1 (one) tablet [...] (01/21/2018): SVR with 3 mths sim/sof 08/2014 Family History Medical History Relation Name Comments Cancer Father Esphageal; Stat us: Heart Disease Mother Pacemaker; Sta tus: Osteoporosis Mother Relation Name Status Comments Father Mother Social History Tobacco Use Types Packs/Day Years [...] Comments Blood Pressure 107/58 11/06/2022 12:40 PM GRAIN DRIER Pulse 65 11/06/2022 12:40 PM GRAIN DRIER Temperature 36.7 C (98 F) 11/06/2022 12:40 PM GRAIN DRIER Respiratory Rate 18 11/06/2022 12:40 PM GRAIN DRIER Oxygen Saturation 95% 11/06/2022 12:40 PM GRAIN DRIER Inhaled Oxygen Concentration - - Weight 80.7 kg (178 lb) 11/06/2022 12:40 PM GRAIN DRIER Height 175.3 cm (5' 9 ) 11/06/2022 12:40 PM GRAIN DRIER Body Mass Index 26.29 11/06/2022 12:40 PM GRAIN DRIER Plan of Treatment Health Maintenance Due Date Last Done Comments DTAP/TDAP/TD VACCINES (1 - Tdap) 1962 PNEUMOCOCCAL VACCINE 50+ (1 of 2 - PCV) 1962 ZOSTER VACCINE (1 of 2) 1993 HEPATITIS B VACCINE (1 of 3 - Risk 3-dose series) 2003 Respiratory Syncytial Virus (RSV) Vaccine Pt: or over 60 yrs (1 - 1-dose 75+ series) 2018 COVID-19 VACCINE ( - 2023-2 5 season) 2024 INFLUENZA VACCINE (#1) 2024 DEPRESSION SCREENING 10/22/2024 MEDICARE AWV CALENDAR YEAR 2024 HIB VACCINE Aged Out No longer eligi ble based on patient's age to complete this topic HPV VACCINE Aged Out No longer eligi ble based on patient's age to complete this topic MENINGOCOCCAL (Group B) VACCINE Aged Out No longer eligible based on patient's age to complete this topic MENINGOCOCCAL VACCINE Aged Out No maddie rolando eligible based on patient's age to complete this topic Care Teams Foundry Finisher Relationship Specialty Start Date End Date Zackery Randle MD [address] [place] [address] PCP - General 12/18/14
--- OUTSIDE RECORDS SUMMARY | 2024-12-10 19:53 | XMS_ITS | Referral Summary ---
Author Organization [facility] [address] Address [address] [place] [address] Care Team Providers Care Commercial Collector Name Role Phone cJ Pham MD Unavailable Zackery Randle MD Primary [...] if no change, no further imaging needed. 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
[2024-12-10 19:56] VITALS: BP 120/66; PULSE 64; RESP 15; TEMP 37.2; O2SAT 96
--- NOTE | 2024-12-10 19:57 | ED.CHESTPAIN ---
HPI - Chest Pain General Chief Complaint: Chest Pain Stated Complaint: CHEST, NECK, BACK, R SHOULDER PAIN Time Seen by Provider: 12/10/24 19:57 Source: patient History of Present Illness HPI narrative: 79 YEARS OLD WHITE MALE CAME FROM HOME BY PRIVATE CAR COMPLAINING OF RETROSTERNAL CHEST, AT REST, DULL ACHING PAIN, RADIATING TO HIS BACK, JAW AND RIGHT ARM STARTED FEW HOURS AGO, 07/31, CURRENTLY 10/31. PATIENT DENIES AGGRAVATING OR RELIEVING FACTORS. PATIENT LIVES WITH HIS SON AND DAUGHTER, PROBABLY DEPRESSED PATIENT REPORTS STOMACH UPSET AND POOR APPETITE, INTERMITTENT LIGHTHEADEDNESS AND FEELING WOOZY FOR THE LAST 2-3 DAYS. PATIENT IS HEALTHY OTHERWISE, DOES NOT TAKE MEDICINE AT HOME, DOES NOT SMOKE OR DRINK OR USE DRUGS. Related Data Home Medications ?Medication ?Instructions ?Recorded ?Confirmed ?Last Taken ?Type latanoprost 0.005 % eye drops 1 drp EACH EYE HS 07/26/24 09/12/24 08/05/24 History Allergies Allergy/AdvReac Type Severity Reaction Status Date / Time No Known Allergies Allergy Verified 12/10/24 19:52 Review of Systems Review of Systems: All systems reviewed & are unremarkable except as noted in HPI and below PMFSH Past Medical History Medical History Cardiac murmur Patient reports he has had it since childhood Hepatic cirrhosis due to chronic hepatitis C infection With prior treatment and resolution Overactive bladder Lumbar spondylosis Cervical spondylosis Rotator cuff arthropathy of right shoulder Actinic keratosis Allergic rhinitis, cause unspecified (01/15/18) Anxiety BPH (benign prostatic hyperplasia) (07/24/17) Chronic low back pain (07/24/17) Essential (primary) hypertension Gastroesophageal reflux disease without esophagitis History of basal cell carcinoma History of prostate cancer IFG (impaired fasting glucose) Peripheral neuropathy (11/20/17) Peripheral vascular disease (11/13/17) SVT (supraventricular tachycardia) Status post ablation Unspecified osteoarthritis, unspecified site Surgical History Surgical History History of laparoscopic appendectomy Status post cataract extraction of both eyes with insertion of intraocular lens H/O excision of lamina of cervical vertebra for decompression of spinal cord Status post cervical spinal fusion History of cardiac radiofrequency ablation SVT Status post hernia repair Bilateral inguinal hernia History of back surgery L4-L5 Family History Family History Father Family history of malignant neoplasm of esophagus Mother Acute myocardial infarction Social History Social History Social History: He reports that he has been since October 2021. He and his raised 6 children. They were for 50 years prior to her . He smoked from approximately age [age] per to quitting. 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 He then continued to work part-time until he had his most recent back surgery. Code status: DNR/DNI per patient request. Healthcare power of intellectual property lawyer: Markos Costa (son) Smoking packs per day: 0.5 Smoking cigarettes per day: 10.0 Years smoked: 5 Smoking pack-years: 2.50 Smoking status: Former smoker Second hand tobacco smoke exposure: No Smoking end date: 10/22/1964 Alcohol intake: current Drinks per week: 1 Alcohol use details: Beer Substance use: never Substance use type: does not use Do You Feel Safe in your Home?: Yes Lack of Transportation: No Lack of Food: Never True Current Housing: I Have Housing Concerned About Future Housing: No Difficulty Paying Gas/Electric Bills: No Difficulty Paying for Meds: No Currently Unemployed: No Education: High School Diploma/GED Difficulty w/ Childcare or Family Care: No Living arrangements: with family Additional living arrangements comments: Son Occupation/Education: retired Gender identity (if verbalized by the patient): Male Sexual Orientation (if Verbalized by the Patient): Straight or Heterosexual Spiritual care concerns: No Agree to blood products: Yes Exam Narrative: GENERAL APPEARANCE: WELL-DEVELOPED, WELL-NOURISHED, LOOKS DEPRESSED SKIN: NORMAL COLOR HEAD: NORMOCEPHALIC, NONTRAUMATIC EYES: CLEAR CONJUNCTIVA ENT: OROPHARYNX NORMAL, EARS NORMAL, NOSE NORMAL NECK: SUPPLE, NONTENDER CHEST AND RESPIRATORY: AIRWAY PATENT, NO RESPIRATORY DISTRESS, NO ACCESSORY MUSCLE USE HEART: REGULAR RATE/RHYTHM ABDOMEN: SOFT, NONTENDER, NO ORGANOMEGALY, QUIET BOWEL SOUNDS VASCULAR: NORMAL PERIPHERAL PULSES, NORMAL CAPILLARY REFILL. 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 OPERATOR IS NORMAL TESTED, NO GROSS MOTOR DEFICIT Course Vital Signs Vital signs: Vital Signs Temperature 37.2 C 12/10/24 19:56 Pulse Rate 64 12/10/24 19:56 Respiratory Rate 15 12/10/24 19:56 Blood Pressure 120/66 12/10/24 19:56 Pulse Oximetry 96 12/10/24 19:56 Oxygen Delivery Room Air 12/10/24 19:56 Temperature 37.2 C 12/10/24 19:56 Pulse Rate 59 L 12/10/24 20:13 Respiratory Rate 15 12/10/24 19:56 Blood Pressure 120/66 12/10/24 19:56 Pulse Oximetry 100 12/10/24 20:12 Oxygen Delivery Room Air 12/10/24 20:12 MDM - Chest Pain MDM Narrative Medical decision making narrative: PATIENT CAME WITH CHEST PAIN VITAL SIGNS STABLE PHYSICAL EXAMINATION SHOWING A DEPRESSED PATIENT OTHERWISE INSIGNIFICANT DIFFERENTIAL DIAGNOSIS INCLUDE ANXIETY LIKE SYMPTOMS, DEPRESSION, CORONARY ARTERY DISEASE, PULMONARY EMBOLISM, GASTRITIS, ESOPHAGITIS, LESS LIKELY PANCREATITIS BLOOD WORKUP TODAY INCLUDES CBC, CMP, LIPASE, TROPONIN, D-DIMER SHOWED MCV OF 102.7, D-DIMER 0.49, LIPASE 356. OTHERWISE WITHIN NORMAL LIMIT CHEST X-RAY SHOWED NO ACUTE ABNORMALITY EKG SHOWED SINUS BRADYCARDIA OTHERWISE WITHIN NORMAL ADMIT TO [facility] DIAGNOSIS: CHEST PAIN ADMIT TO HOSPITALIST. Differential Diagnosis Differential diagnosis: Likely unstable angina pectoris, atypical chest pain and chest pain Medical Records Data Attestation: I reviewed the patient's medical records. Lab Data Attestation: I reviewed the patient's lab results. 12/10/24 20:09 12/10/24 20:09 Labs: Lab Results 12/10/24 Range/Units 20:09 WBC 6.0 (4.5-10.0) K/mm3 RBC 4.15 L (4.6-6.20) M/mm3 Hgb 14.6 (14.0-18.0) g/dL Hct 42.6 (42.0-52.0) % MCV 102.7 H (80-100) fl MCH 35.2 H (26-34) pg MCHC 34.3 (32-36) g/dl RDW 12.0 (11.5-14.5) % Plt Count 146 L (150-375) k/mm3 MPV 10.0 (7.4-10.4) fl Immature Gran % (Auto) 0.3 (0-0.5) % Neut % (Auto) 58.9 (45.5-73.1) % Lymph % (Auto) 23.0 (18.3-44.2) % Bartholomew % (Auto) 14.7 H (2.6-8.5) % Eos % (Auto) 2.3 (0-4.4) % Baso % (Auto) 0.8 (0.2-1.2) % Lymph # (Auto) 1.39 (0.9-3.2) K/mm3 Bartholomew # (Auto) 0.9 H (0.1-0.6) K/mm3 Eos # (Auto) 0.1 (0-0.3) K/mm3 Baso # (Auto) 0.1 (0.0-0.1) K/mm3 Abs Immat Gran (auto) 0.02 (0.00-0.031) K/mm3 Absolute Neuts (auto) 3.6 (1.3-6.7) K/mm3 Absolute Nucleated RBC 0.000 (0.0-0.012) K/mm3 Nucleated RBC % 0.0 (0.0-0.2) % PT 12.9 (11.1-14.7) Seconds INR 0.9 APTT 25.8 (22.3-36.8) Seconds D-Dimer 0.49 H (<0.48) ug/mL Sodium 137 (137-145) mmol/L Potassium 4.1 (3.4-5.0) mmol/L Chloride 99 (98-107) mmol/L Carbon Dioxide 27 (22-30) mmol/L Anion Gap 11 (4-12) mmol/L BUN 21 H (9-20) mg/dL Creatinine 0.78 (0.7-1.3) mg/dL Estim Creat Clear Calc 65 ml/min Estimated GFR > 60 (59 - ) Glucose 96 (65-110) mg/dL Calcium 9.9 (8.4-10.2) mg/dL Total Bilirubin 0.6 (0.2-1.3) mg/dL AST 27 (17-59) U/L ALT 20 (6-50) U/L Alkaline Phosphatase 82 (38-126) U/L Troponin I < 0.012 (0.000-0.034) ng/mL Total Protein 8.0 (6.3-8.2) g/dL Albumin 4.5 (3.5-5.1) g/dL Lipase 356 H (23-300) U/L Imaging Data Radiologist's impression: Impressions Chest X-Ray 12/10/24 20:26 IMPRESSION: 1. No acute cardiopulmonary disease. Critical Care Time Critical Care Time Critical Care Time: No Discharge Plan Discharge Patient Disposition: Still a Patient Additional Instructions: ADMIT TO HOSPITALIST Patient Language: [place] Prescriptions: No Action latanoprost 0.005 % drops 1 drp EACH EYE HS doxazosin 8 mg tablet 8 mg PO DAILY Qty: 90 2RF Patient Comments: takes in am hydrocodone-acetaminophen 7.5-325 mg tablet 1 tablet PO Q6H PRN (Reason: Pain (Scale Score 4-6)) Qty: 120 0RF Follow-up/Referrals: Zackery Randle MD [Primary Care Provider] - Quality HEART score for chest pain patients History: slightly suspicious ECG: non specific repolarization disturbance/LBTB/PM Age: > or = to 65 years Risk factors: 1 or 2 risk factors Troponin: < or = to 1x normal limit Heart score: 4
--- NOTE | 2024-12-10 20:04 | ECG_ITS ---
Test Date: 2024-12-10 20:08:29 Measurements Intervals [place] Rate: 57 P: -87 MO: 166 QRS: -1 QRSD: 82 T: 14 QT: 394 QTc: 384 Interpretive Statements SINUS BRADYCARDIA CONSIDER RIGHT VENTRICULAR CONDUCTION DELAY BASELINE ARTIFACT- I BORDERLINE ECG No previous ECG available for comparison Electronically Signed On 12-11-2024 05:57:00 [employer] HAND by Gregory Bear D.O.
[2024-12-10 20:12] VITALS: O2SAT 100
[2024-12-10 20:13] VITALS: PULSE 59
[2024-12-10 20:14] LABS: Basophils Absolute Auto 0.1 K/mm3 (0.0-0.1); Basophils Percent Auto 0.8 % (0.2-1.2); Eosinophils Absolute Auto 0.1 K/mm3 (0-0.3); Eosinophils Percent Auto 2.3 % (0-4.4); Hematocrit 42.6 % (42.0-52.0); Hemoglobin 14.6 g/dL (14.0-18.0); Immature Granulocyte Absolute 0.02 K/mm3 (0.00-0.031); Immature Granulocyte Percent A 0.3 % (0-0.5); Lymphocytes Absolute Auto 1.39 K/mm3 (0.9-3.2); Mean Corpuscular HGB Conc 34.3 g/dl (32-36); Mean Corpuscular Hemoglobin 35.2 pg (26-34); Mean Corpuscular Volume 102.7 fl (80-100); Monocytes Absolute Auto 0.9 K/mm3 (0.1-0.6); Monocytes Percent Auto 14.7 % (2.6-8.5); Neutrophils Absolute Auto 3.6 K/mm3 (1.3-6.7); Neutrophils Percent Auto 58.9 % (45.5-73.1); Platelet Count Result 146 k/mm3 (150-375); Red Blood Count 4.15 M/mm3 (4.6-6.20)
--- OUTSIDE RECORDS SUMMARY | 2024-12-10 20:15 | XMS_ITS | Patient Health Summary ---
Author Organization [facility] Address [address] [place] [address] Care Team Providers Care Glass Cutter Name Role Phone Zackery Randle MD Primary Care Provider [phone] Note from [facility],non-owned Affiliates and Associated Physician Practices is amultiple site organization consisting of ambulatory clinics and hospital sitesin [place], [place], [place] and [place]. This disclosure is being madepursuant to the Care Everywhere program and may not contain all information available regarding this patient. Last updated 18.[facility] Allergies No known active allergies Medications * Be aware that medications may not be up to date on this document. Alwaysverify current medications with the patient. * HYDROcodone-acetaminophen (Ono) 5-325 MG tablet(Started 10/26/2022) Take 1 (one) [...] Comments Blood Pressure 107/58 11/06/2022 12:40 PM SUPPLY CHAIN PLANNER Pulse 65 11/06/2022 12:40 PM SUPPLY CHAIN PLANNER Temperature 36.7 C (98 F) 11/06/2022 12:40 PM SUPPLY CHAIN PLANNER Respiratory Rate 18 11/06/2022 12:40 PM SUPPLY CHAIN PLANNER Oxygen Saturation 95% 11/06/2022 12:40 PM SUPPLY CHAIN PLANNER Inhaled Oxygen Concentration - - Weight 80.7 kg (178 lb) 11/06/2022 12:40 PM SUPPLY CHAIN PLANNER Height 175.3 cm (5' 9 ) 11/06/2022 12:40 PM SUPPLY CHAIN PLANNER Body Mass Index 26.29 11/06/2022 12:40 PM SUPPLY CHAIN PLANNER Procedures * HEPATITIS C RNA QUANTITATIVE(Performed 11/14/2022) Performed for Other cirrhosis of liver (HCC) * ALPHA FETOPROTEIN BLOOD TUMOR MARKER(Performed 11/14/2022) Performed for Other cirrhosis of liver (HCC) * PT-INR(Performed 11/14/2022) Performed for Other cirrhosis of liver (HCC) * COMPREHENSIVE METABOLIC PANEL(Performed 11/14/2022) Performed for Other cirrhosis of liver (HCC) * CBC W/O DIFFERENTIAL(Performed 11/14/2022) Performed for Other cirrhosis of liver (HCC) * [place] LIVER ELASTOGRAPHY(Performed 11/06/2022) Performed for Other cirrhosis [...] 03/17/2014) * SMOOTH MUSCLE ANTIBODY(Performed 03/17/2014) * BVCLB-2-NRUTBHTMTID BLOOD PHENOTYPING PANEL(Performed 03/17/2014) * HEPATITIS C RNA QUANTITATIVE(Performed 03/17/2014) * HEPATITIS B SURFACE ANTIGEN W RFLX CONFIRMATION(Performed 03/17/2014) * HEPATITIS A ANTIBODY(Performed 03/17/2014) * HEPATITIS B CORE ANTIBODY TOTAL(Performed 03/17/2014) * HEPATITIS B SURFACE ANTIBODY(Performed 03/17/2014) * FERRITIN(Performed 03/17/2014) * TRANSFERRIN(Performed 03/17/2014) * IRON BLOOD(Performed 03/17/2014) Results * HEPATITIS C RNA QUANTITATIVE (11/14/2022 11:09 AM SUPPLY CHAIN PLANNER) Only the most recent of2 resultswithin the [...] of this assay have been determined by [employer]. The modifications have not been cleared or approved by the FDA. This assay has been validated pursuant to the CLIA regulations and is used for clinical purposes. For more information on this test, go to: http://education.Affinity.is/faq/SRP03f3 (This link is being provided for informational/ educational purposes only.) Test Performed at: [facility] [address] [place] [address] KRYSTAL RUBIO DO,MPH Blood BLOOD SPECIMEN / Unknown 11/14/2022 11:09 AM SUPPLY CHAIN PLANNER 11/14/2022 11:09 AM SUPPLY CHAIN PLANNER Harry Kinsey MD LAB - CHEMISTRY GUS ZAMBRANO Performing Organization Address [facility] Co de Phone Number [facility] [address] [place] [address] * ALPHA FETOPROTEIN BLOOD TUMOR MARKER (11/14/2022 11:09 AM SUPPLY CHAIN PLANNER) Only the most recent of2 resultswithin the time period is included. Alpha-Fetoprotei n Tumor Marker 3.8 <6.1 ng/mL [facility] Comment: This test was performed using the Derrek Chebanse chemiluminescent method. Values obtained from different assay methods cannot be used interchangeably. AFP levels, regardless of value, should not be interpreted as absolute evidence of the presence or absence of disease. Test Performed at: [facility] [place] [address] [place] [address] GRAHAM MILLER Blood BLOOD SPECIMEN / Unknown 11/14/2022 11:09 AM SUPPLY CHAIN PLANNER 11/14/2022 11:09 AM SUPPLY CHAIN PLANNER Harry Kinsey MD LAB - CHEMISTRY GUS ZAMBRANO Performing Organization Address [facility] Co de Phone Number [facility] [address] [place] [address] * PT-INR (11/14/2022 11:09 AM SUPPLY CHAIN PLANNER) [facility] INR 1.0 [facility] Comment: Reference Range 0.9-1.1 Moderate-intensity Warfarin Therapy 2.0-3.0 Higher-intensity Warfarin Therapy 3.0-4.0 PT 10.5 9.0 - 11.5 sec [facility] Comment: For additional information, please refer to http://education.Affinity.is/faq/RES760 (This link is being provided for informational/ educational purposes only.) Test Performed at: [facility] [address] MATTHEW MCMAHON MD Blood BLOOD SPECIMEN / Unknown 11/14/2022 11:09 AM SUPPLY CHAIN PLANNER 11/14/2022 11:09 AM SUPPLY CHAIN PLANNER Harry Kinsey MD LAB - COAGULATION OR DERABLES Performing Organization Address City/State/[facility] Co de Phone Number [address] [address] * (ABNORMAL) CBC W/O DIFFERENTIAL (11/14/2022 11:09 AM SUPPLY CHAIN PLANNER) [facility] White Blood Cell Count 5.6 3.8 - [...] 12.5 fL [facility] Comment: Test Performed at: [facility] [address] [address] KRYSTAL RUBIO DO,MPH Blood BLOOD SPECIMEN / Unknown 11/14/2022 11:09 AM SUPPLY CHAIN PLANNER 11/14/2022 11:09 AM SUPPLY CHAIN PLANNER Harry Kinsey MD LAB - HEMATOLOGY ORD ERABLES Performing Organization Address [facility]/ZIP Co de Phone Number [facility] [address] [place] [phone] * COMPREHENSIVE METABOLIC PANEL (11/14/2022 11:09 AM SUPPLY CHAIN PLANNER) Only the most recent of6 resultswithin the [...] 46 U/L [facility] Comment: Test Performed at: [facility] [address] [place] [address] KRYSTAL RUBIO DO,MPH Blood BLOOD SPECIMEN / Unknown 11/14/2022 11:09 AM SUPPLY CHAIN PLANNER 11/14/2022 11:09 AM SUPPLY CHAIN PLANNER Harry Kinsey MD LAB - CHEMISTRY GUS ZAMBRANO Performing Organization Address [facility] Co de Phone Number [facility] [address] [place] [phone] * [place] LIVER ELASTOGRAPHY (11/06/2022 1:05 PM SUPPLY CHAIN PLANNER) Narrative Shiraz Wilson MD - 11/06/2022 1:05 PM SUPPLY CHAIN PLANNER Shiraz Wilson MD 11/06/2022 5:01 PM Diagnosis: [...] patients with nonalcoholic fatty liver disease. Gastroenterology 2019;156:4615-5382. Niyah MS, Joe R, Van Theodora ML, [...] FIB4 score (Stacyuke et al. Hepatology Communications 2019;3:6430-3222) or NAFLD Fibrosis score (Canales et al. Clinical Gastroenterology and Hepatology 2019;17:3476-8293. from routine clinical data. 3. Liver stiffness [...] change as additional supporting data becomes available. [email or web address] Harry Kinsey MD PROCEDURE/MINOR SURG ICAL ORDERABLES [...] Selvin Dean MD CT ORDERABLES * PT-INR [facility] (06/15/2015 1:05 PM CDT) Only the most recent of2 resultswithin the time period is included. PT 12.7 12.1 - 14.8 Seconds [facility] INR 0.9 See Comment [facility] Comment: Suggested therapeutic range for low-intensity coumadin therapy for venous thromboembolism prophylaxis is an INR of 2.0-3.0. For high risk patients (Mitral Valve Prosthesis, Atrial Fibrillation, history of TIA/stroke), suggested prophylactic therapeutic range is an INR of 2.5-3.5. Blood specimen (specimen) BLOOD SPECIMEN / Unknown 06/15/2015 1:05 PM CDT 06/15/2015 1:24 PM CDT Narrative [facility] - 06/15/2015 1:41 PM CDT Is patient on Heparin, Argatroban or Dabigatran?->N Selvin Dean MD LAB - COAGULATION OR DERABLES [facility] [address] [place] [address], [facility] [phone] * (ABNORMAL) CBC W AUTO DIFFERENTIAL (06/15/2015 1:05 PM CDT) Only the most recent of7 resultswithin the time period is included. WBC 4.2 3.5 - 10.5 10 3/uL [facility] RBC 3.85(L) 4.30 - 5.70 10 6/uL [facility] Hemoglobin 13.8 13.5 - 17.5 g/dL [facility] Hematocrit 39.4 39.0 - 50.0 % [facility] MCV 102.3(H) 81.0 - 97.0 fL [facility] MCH 35.8(H) 28.0 - 34.0 pg [facility] MCHC 35.0 32.0 - 36.0 g/dL [facility] Platelet Count 109(L) 150 - 400 10 3/uL [facility] RDW-SD 45.9 36.0 - 50.0 fL [facility] RDW-CV 12.3 11.2 - 14.8 % [facility] MPV 10.3 9.3 - 12.8 fL [facility] Neutrophils % 56.4 35.0 - 70.0 % [facility] Lymphocytes % 28.7 19.7 - 55.1 % [facility] Monocytes % 10.3 3.0 - 15.0 % [facility] Eosinophils % 3.6 0.0 - 6.0 % [facility] Basophil % 1.0 0.0 - 1.5 % [facility] Neutrophils Absolute 2.4 1.6 - 7.0 10 3/uL [facility] Lymphocyte Absolute 1.2 0.8 - 2.9 10 3/uL [facility] Monocytes Absolute 0.43 0.14 - 0.66 10 3/uL [facility] Eosinophils Absolute 0.15 0.00 - 0.22 10 3/uL [facility] Basophils Absolute 0.04 0.00 - 0.06 10 3/uL [facility] Immature Granulocytes % 0.2 0.0 - 1.0 % [facility] Blood specimen (specimen) BLOOD SPECIMEN / Unknown 06/15/2015 1:05 PM CDT 06/15/2015 1:24 PM CDT Selvin Dean MD LAB - HEMATOLOGY NED MARTINI Performing Organization Address [facility]/ZIP Co de Phone Number [address] [phone] * LIPASE BLOOD (06/15/2015 1:05 PM CDT) Lipase 13 8 - 78 Units/L [facility] Blood specimen (specimen) BLOOD SPECIMEN / Unknown 06/15/2015 1:05 PM CDT 06/15/2015 1:24 PM CDT Selvin Dean MD LAB - CHEMISTRY GUS ZAMBRANO Performing Organization Address [facility] Co de Phone Number [address] [phone] * AMYLASE BLOOD (06/15/2015 1:05 PM CDT) Amylase 84 25 - 125 Units/L [facility] Blood specimen (specimen) BLOOD SPECIMEN / Unknown 06/15/2015 1:05 PM CDT 06/15/2015 1:24 PM CDT Selvin Dean MD LAB - CHEMISTRY GUS ZAMBRANO Performing Organization Address [facility] Co de Phone Number [address] [phone] * FERRITIN (06/15/2015 1:05 PM CDT) Only the most recent of2 resultswithin the time period is included. Ferritin 261 22 - 275 ng/mL [facility] Blood specimen (specimen) BLOOD SPECIMEN / Unknown 06/15/2015 1:05 PM CDT 06/15/2015 1:24 PM CDT Selvin Dean MD LAB - CHEMISTRY GUS ZAMBRANO Performing Organization Address City/[facility]/[place] [address], [facility] [phone] * FOLATE RBC (12/15/2014 1:56 PM SUPPLY CHAIN PLANNER) Pathologist [facility] Folate Hemolysate 480.7 Not Estab. ng/mL [facility] ([facility]) Hematocrit 41.4 37.5 - 51.0 % [facility] ([facility]) Folate RBC 1161 499 - 1504 ng/mL [facility] ([facility]) Blood specimen (specimen) BLOOD SPECIMEN / Unknown 12/15/2014 1:56 PM SUPPLY CHAIN PLANNER 12/15/2014 2:22 PM SUPPLY CHAIN PLANNER Narrative [facility] ([facility]) - 12/16/2014 7:09 PM SUPPLY CHAIN PLANNER Performed at: [address] [place] [id number] Healthcare Recruiter: Maurizio Carpenter PhD, Phone: [phone] Selvin Dean MD LAB - CHEMISTRY GUS ZAMBRANO Performing Organization Address [facility]/ZIP Co de Phone Number [facility]) * TESTOSTERONE MALE FREE (12/15/2014 1:56 PM SUPPLY CHAIN PLANNER) [facility] Testosterone Free Calculation 82 47 - 244 pg/mL [facility]) Comment: INTERPRETIVE INFORMATION: Testosterone, Free Kevin Stage IV 35 - 169 pg/mL Kevin Stage V 41 - 239 pg/mL The concentration of Free Testosterone is derived from a mathematical expression based on the constant for the binding of testosterone to Sex Hormone Binding Globulin (SHBG). Access complete set of age- and/or gender-specific reference intervals for this test in the [facility] Laboratory Test Directory ([employer]). Blood specimen (specimen) BLOOD SPECIMEN / Unknown 12/15/2014 1:56 PM SUPPLY CHAIN PLANNER 12/15/2014 2:22 PM SUPPLY CHAIN PLANNER Selvin Dean MD LAB - CHEMISTRY GUS ZAMBRANO Performing Organization Address City/[facility]/ZIP Co de Phone Number [facility]) * TESTOSTERONE TOTAL MALE (12/15/2014 1:56 PM SUPPLY CHAIN PLANNER) Pathologist [facility] Testosterone 642 300 - 720 ng/dL [facility] ([facility]) Comment: Total testosterone values may not reflect optimal concentrations in all individuals. Free or bioavailable testosterone measurements may provide supportive information. REFERENCE INTERVAL: Testosterone, Adult Male Access complete set of age- and/or gender-specific reference intervals for this test in the [facility] Laboratory Test Directory ([email or web address]). Blood specimen (specimen) BLOOD SPECIMEN / Unknown 12/15/2014 1:56 PM SUPPLY CHAIN PLANNER 12/15/2014 2:23 PM SUPPLY CHAIN PLANNER Selvin Dean MD LAB - CHEMISTRY GUS ZAMBRANO [facility]) * VITAMIN B12 (12/15/2014 1:56 PM SUPPLY CHAIN PLANNER) [facility] Vitamin B12 712 213 - 816 pg/mL [facility] Blood specimen (specimen) BLOOD SPECIMEN / Unknown 12/15/2014 1:56 PM SUPPLY CHAIN PLANNER 12/15/2014 2:23 PM SUPPLY CHAIN PLANNER Selvin Dean MD LAB - CHEMISTRY GUS ZAMBRANO [address] [phone] * HEPATITIS C REAL-TIME PCR QUANTASURE (12/03/2014 10:00 AM SUPPLY CHAIN PLANNER) Only the most recent of3 resultswithin the time period is included. [facility] Hepatitis C Virus RNA PCR Quantitative <15 NOT DETECTED <15 IU/mL [facility] ([facility]) Hepatitis C Virus RNA Log IU/mL <1.18 NOT DETECTED <1.18 Log IU/mL [facility] ([facility]) See Note [facility] ([facility]) Comment: Please note: The guidelines for [...] of this assay have been determined by [employer]. Performance characteristics refer to the analytical performance of the test. For more information on this test, go to: http://education.Affinity.is/faq/WMP78u3 Test Performed at: [facility] [place] [address] [facility] [place] [place] [address] KRYSTAL RUBIO DO,MPH 12/03/2014 10:0 0 AM SUPPLY CHAIN PLANNER 12/03/2014 10:01 AM SUPPLY CHAIN PLANNER Selvin Dean MD LAB - SEROLOGY ORDER PIETER Performing Organization Address [facility] Co de Phone Number [facility] ([facility]) * CREATININE BLOOD - POCT (IP) [facility] (05/07/2014) [facility] Creatinine POCT 1.13 0.3 - 1.3 mg/dL [facility] eGFR POCT 60 60 ml/min [facility] 05/07/2014 Selvin Dean MD LAB - POINT OF CARE ORDERABLES Performing Organization Address [facility] Co de Phone Number [facility] * HEPATITIS C GENOTYPE (03/17/2014 3:50 PM CDT) [facility] Hepatitis C Genotype 1b Comment See Note [facility] (CH[facility]STAL[facility]) Comment: This assay can [...] PM CDT 03/17/2014 4:41 PM CDT Narrative [facility] ([place]) - 03/24/2014 3:19 PM CDT Performed at: - [facility] [id number] Healthcare Recruiter: Krystal Leon MD, Phone: [phone] Selvin Dean MD LAB - CHEMISTRY GUS ZAMBRANO [facility] ([place]) * BRIANNA W/REFLEX IFA PATTERN (03/17/2014 2:52 PM CDT) [facility] BRIANNA None Detected None Detected [facility] Blood specimen (specimen) BLOOD SPECIMEN / Unknown 03/17/2014 2:52 PM CDT 03/17/2014 4:43 PM CDT Selvin Dean MD LAB - SEROLOGY ORDER PIETER Performing Organization Address [facility] Co de Phone Number [address] [phone] * MITOCHONDRIAL ANTIBODY SCREEN (03/17/2014 2:52 PM CDT) [facility] Mitochondrial M2 Antibody 7.0 0.0 - 20.0 Units [facility] Comment: Mitochondrial M2 Antibody Numeric Result Interpretation: <20.1 Units: Negative 20.1 - 24.9 Units: Equivocal >24.9 Units: Positive Blood specimen (specimen) BLOOD SPECIMEN / Unknown 03/17/2014 2:52 PM CDT 03/17/2014 4:43 PM CDT Selvin Dean MD LAB - CHEMISTRY GUS ZAMBRANO Performing Organization Address [facility]/ZIP Co de Phone Number [address] [phone] * [id number] BLOOD PHENOTYPING PANEL (03/17/2014 2:52 PM CDT) Blbjk-3-Ylwbtdympx n 156 90 - 200 mg/dL [facility] ([facility]) Phenotype (PI) MM [facility] ([facility]) Comment: Phenotype Population A-1-AT Concentration* Incidence % [...] PM CDT 03/17/2014 4:43 PM CDT Narrative [facility] ([facility]) - 03/20/2014 3:19 PM CDT Performed at: [address] [id number] Healthcare Recruiter: Ed Ramey MD, Phone: [phone] Performed at: [address] [id number] Healthcare Recruiter: Krystal Leon MD, Phone: [phone] Selvin Dean MD LAB - CHEMISTRY GUS ZAMBRANO [facility] ([facility]) * (ABNORMAL) TRANSFERRIN (03/17/2014 2:52 PM CDT) Transferrin 273 174 - 382 mg/dL [facility] Transferrin Saturation % 64(H) 16 - 50 % [facility] Blood specimen (specimen) BLOOD SPECIMEN / Unknown 03/17/2014 2:52 PM CDT 03/17/2014 4:43 PM CDT Selvin Dean MD LAB - CHEMISTRY ORDBrittni MUÑOZLES Performing Organization Address [facility]/ZIP Co de Phone Number [address] [phone] * SMOOTH MUSCLE ANTIBODY (03/17/2014 2:52 PM CDT) F-Actin Antibody IgG 13.1 0.0 - 19.9 Units [facility] Comment: F-Actin Antibody Numeric Result Interpretation: <20.0 Units: Negative 20.0 - 30.0 Units: Weak Positive >30.0 Units: Moderate to Strong Positive Blood specimen (specimen) BLOOD SPECIMEN / Unknown 03/17/2014 2:52 PM CDT 03/17/2014 4:43 PM CDT Selvin Dean MD LAB - SEROLOGY ORDER PIETER Performing Organization Address [facility] Co de Phone Number [address] [phone] * (ABNORMAL) IRON BLOOD (03/17/2014 2:52 PM CDT) Pathologist [facility] Iron 219(H) 50 - 175 mcg/dL [facility] Blood specimen (specimen) BLOOD SPECIMEN / Unknown 03/17/2014 2:52 PM CDT 03/17/2014 4:43 PM CDT Selvin Dean MD LAB - CHEMISTRY GUS ZAMBRANO Performing Organization Address [facility] Co de Phone Number [address] [phone] * HEPATITIS B SURFACE ANTIBODY (03/17/2014 2:52 PM CDT) Pathologist [facility] Hepatitis B Virus Surface Antibody Non-react felix Non-react felix [facility] Comment: < 8 mIU/mL Hepatitis B surface Antibody (HBsAb). Nonreactive for HBsAb - individual is considered not immune to Hepatitis B Virus infection. Hepatitis B Surface Antibody Quantitative 5.3 <8.0 mIU/mL [facility] Comment: Hepatitis B Surface Antibody Numeric Result Interpretation: Nonreactive: <8.0 mIU/mL Indeterminate: 8.0 - 12.0 mIU/mL Reactive: >12.0 mIU/mL Blood specimen (specimen) BLOOD SPECIMEN / Unknown 03/17/2014 2:52 PM CDT 03/17/2014 4:43 PM CDT Selvin Dean MD LAB - CHEMISTRY GUS ZAMBRANO Performing Organization Address City/[facility]/ZIP Co de Phone Number [address] [phone] * (ABNORMAL) HEPATITIS B CORE ANTIBODY (03/17/2014 2:52 PM CDT) Pathologist [facility] HBc Antibody Total Reactive(A ) Non-reacti ve [facility] Blood specimen (specimen) BLOOD SPECIMEN / Unknown 03/17/2014 2:52 PM CDT 03/17/2014 4:43 PM CDT Selvin Dean MD LAB - CHEMISTRY GUS ZAMBRANO Performing Organization Address [facility]/ZIP Co de Phone Number [address] [phone] * HEPATITIS B SURFACE ANTIGEN W RFLX CONFIRMATION (03/17/2014 2:52 PM CDT) [facility] Hepatitis B Virus Surface Antigen Screen Negative Negative [facility] ([facility]) Blood specimen (specimen) BLOOD SPECIMEN / Unknown 03/17/2014 2:52 PM CDT 03/17/2014 4:44 PM CDT Narrative [facility] ([facility]) - 03/19/2014 6:19 AM CDT Performed at: 01 - [address] [id number] Healthcare Recruiter: Ed Ramey MD, Phone: [phone] Selvin Dean MD LAB - CHEMISTRY GUS ZAMBRANO [facility] ([facility]) * (ABNORMAL) HEPATITIS A ANTIBODY (03/17/2014 2:52 PM CDT) Pathologist [facility] Hepatitis A Virus Antibody Total Positive(A ) Negative [facility] ([place]) Blood specimen (specimen) 03/17/2014 2:52 PM CDT 03/17/2014 4:44 PM CDT Narrative [facility] ([place]) - 03/19/2014 6:19 AM CDT Performed at: - [address] [id number] Healthcare Recruiter: Ed Ramey MD, Phone: [phone] Selvin Dean MD LAB - CHEMISTRY GUS ZAMBRANO [facility] Care Teams Glass Cutter Relationship Specialty Start Date End Date Zackery Randle MD [address] [place] [address] PCP - General 12/18/14
--- OUTSIDE RECORDS SUMMARY | 2024-12-10 20:15 | XMS_ITS | Clinical Summary ---
Author Organization [facility] Address [address] [place] [address] Care Team Providers Care Dental Practice Manager Name Role Phone Zackery Randle MD Primary Care Provider Source Comments [facility],non-owned Affiliates and Associated Physician Practices is amultiple site organization consisting of ambulatory clinics and hospital sitesin [place], [place], [place] and [place]. This disclosure is being madepursuant to the Care Everywhere program and may not contain all information available regarding this patient. Last updated 18.[facility] Allergies No known active allergies Medications * Be aware that medications may not be up to date on this document. Alwaysverify current medications with the patient. Medication Sig Dispensed Refills Start Date End Date Status HYDROcodone-acetaminop hen ([place]) 5-325 MG tablet Take 1 (one) tablet [...] Comments Blood Pressure 107/58 11/06/2022 12:40 PM CAREER TECHNICAL EDUCATION TEACHER Pulse 65 11/06/2022 12:40 PM CAREER TECHNICAL EDUCATION TEACHER Temperature 36.7 C (98 F) 11/06/2022 12:40 PM CAREER TECHNICAL EDUCATION TEACHER Respiratory Rate 18 11/06/2022 12:40 PM CAREER TECHNICAL EDUCATION TEACHER Oxygen Saturation 95% 11/06/2022 12:40 PM CAREER TECHNICAL EDUCATION TEACHER Inhaled Oxygen Concentration - - Weight 80.7 kg (178 lb) 11/06/2022 12:40 PM CAREER TECHNICAL EDUCATION TEACHER Height 175.3 cm (5' 9 ) 11/06/2022 12:40 PM CAREER TECHNICAL EDUCATION TEACHER Body Mass Index 26.29 11/06/2022 12:40 PM CAREER TECHNICAL EDUCATION TEACHER Plan of Treatment Health Maintenance Due Date [...] age to complete this topic Care Teams Dental Practice Manager Relationship Specialty Start Date End Date Zackery Randle MD [address] [place] [address] PCP - General 12/18/14
--- OUTSIDE RECORDS SUMMARY | 2024-12-10 20:15 | XMS_ITS | Referral Summary ---
Author Organization [facility] Address [address] [address] Care Team Providers Care Edi Specialist Name Role Phone Zackery Randle MD Primary Care Provider [phone] Source Comments [facility],non-owned Affiliates and Associated Physician Practices is amultiple site organization consisting of ambulatory clinics and hospital sitesin [place], [place], [place] and [place]. This disclosure is being madepursuant to the Care Everywhere program and may not contain all information available regarding this patient. Last updated 18.[facility] Allergies No known active allergies Medications * Be aware that medications may not be up to date on this document. Alwaysverify current medications with the patient. Medication Sig Dispensed Refills Start Date End Date Status HYDROcodone-acetaminop hen ([place]) 5-325 MG tablet Take 1 (one) tablet [...] Comments Blood Pressure 107/58 11/06/2022 12:40 PM INSPECTOR BULLET SLUGS Pulse 65 11/06/2022 12:40 PM INSPECTOR BULLET SLUGS Temperature 36.7 C (98 F) 11/06/2022 12:40 PM INSPECTOR BULLET SLUGS Respiratory Rate 18 11/06/2022 12:40 PM INSPECTOR BULLET SLUGS Oxygen Saturation 95% 11/06/2022 12:40 PM INSPECTOR BULLET SLUGS Inhaled Oxygen Concentration - - Weight 80.7 kg (178 lb) 11/06/2022 12:40 PM INSPECTOR BULLET SLUGS Height 175.3 cm (5' 9 ) 11/06/2022 12:40 PM INSPECTOR BULLET SLUGS Body Mass Index 26.29 11/06/2022 12:40 PM INSPECTOR BULLET SLUGS Plan of Treatment Not on file Care Teams Edi Specialist Relationship Specialty Start Date End Date Zackery Randle MD [address] [place] [address] PCP - General 12/18/14
--- OUTSIDE RECORDS SUMMARY | 2024-12-10 20:15 | XMS_ITS | Referral Summary ---
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 Gender Identity Not on file Sexual Orientation [...] Treatment Not on file Insurance [facility] Address: [address] [address] [place] [address] [facility] Address: [address] [address] [place] [address] [employer] Advance Directives For more information, please contact: [phone] * Full Code (Latest Code Status on File) Date Activated Date Inactivated Comments 01/23/2019 12:02 PM 01/24/2019 4:18 PM Care Teams Application Assistant Relationship Specialty Start Date End Date Zackery Randle MD [address] [place] [id number] PCP - General 01/24/19 Jc Pham MD Consulting Physician Cardiology 01/24/19
--- OUTSIDE RECORDS SUMMARY | 2024-12-10 20:15 | XMS_ITS | Continuity of Care Document ---
Author Organization [facility] ter Address [address] [place] [address] Phone Care Team Providers Care Child Adolescent Psychiatrist Name Role Phone Mini Sheriff OD Unavailable [...] Diagnoses Date Provider Providers Copied on Encounter [facility], [address] [place], [place], [id number], tel:[phone] [address] vision is improved OS (chief complaint) No Information 3 Sharita Morse. [address], [place], [address], [place]. tel:[phone] [facility], [address] [place], [place], [id number], [place] tel:[phone] [address] After-cataract, obscuring visionMacular degeneration (senile) of retina, unspecified 3 Tomás Ledbetter. [address], [place], [address], [place]. tel:[phone] [facility], [address] [place], [id number], [place] tel:[phone] Senile nuclear sclerosisMacular degeneration (senile) of retina, unspecifiedVitreo us degeneration 2 Whit Hamm. [address], [place], [address], [place]. tel:[phone] Family History Family Member Type Diagnosis Age [...]
--- OUTSIDE RECORDS SUMMARY | 2024-12-10 20:15 | XMS_ITS | Clinical Summary ---
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 MED[facility] Address: [place] [id number] [place] [id number] [facility] MEDICARE Address: [facility] [address] [place] [address] [employer] Advance Directives For more information, please contact: [phone] * Full Code (Latest Code Status on File) Date Activated Date Inactivated Comments 01/23/2019 12:02 PM 01/24/2019 4:18 PM Care Teams Oil Well Engineer Relationship Specialty Start Date End Date Zackery Randle MD [address] [place] [address] PCP - General 01/24/19 Jc Pham MD Consulting Physician Cardiology 01/24/19
[2024-12-10 20:32] LABS: Alanine Aminotransferase 20 U/L (6-50); Albumin Level 4.5 g/dL (3.5-5.1); Alkaline Phosphatase 82 U/L (38-126); Anion Gap 11 mmol/L (4-12); Aspartate Amino Transferase 27 U/L (17-59); Bilirubin,Total 0.6 mg/dL (0.2-1.3); Blood Urea Nitrogen 21 mg/dL (9-20); Calcium 9.9 mg/dL (8.4-10.2); Carbon Dioxide 27 mmol/L (22-30); Chloride 99 mmol/L (98-107); Estimated CRCL calculation 65 ml/min; Estimated Glomerular Filt Rate > 60; Glucose 96 mg/dL (65-110); Lipase 356 U/L (23-300); Potassium 4.1 mmol/L (3.4-5.0); Sodium 137 mmol/L (137-145)
[2024-12-10 20:35] LABS: INR 0.9; Prothrombin Time 12.9 Seconds (11.1-14.7)
[2024-12-10 20:36] LABS: Partial Thromboplastin Time 25.8 Seconds (22.3-36.8)
[2024-12-10 20:41] LABS: D Dimer 0.49 ug/mL (<0.48)
[2024-12-10 20:43] LABS: Troponin I < 0.012 ng/mL (0.000-0.034)
--- NOTE | 2024-12-10 20:54 | PM.IMHP ---
H&P: HPI History of Present Illness Date/Time: 12/10/24 20:54 Chief Complaint: Chest Pain Narrative: This is an 79-year-old male patient who presented to the emergency department with complaint of chest pain started around 1600 this afternoon. He described as substernal radiating through to his back. Patient reports that he has a history of a cough nerve stimulator in his back that has recently been turned off and he thinks that that may have been cause of his back pain. He also states that he believes he may have had some indigestion causing his chest discomfort. Patient received initial workup in the emergency department with an initial negative tropes slightly elevated lipase. He also had a minimally elevated D-dimer even though this would have been negative if age-adjusted. CTA obtained showing nodular liver. He has a history of cirrhosis and hep C that was previously treated and cured. Patient now states he is pain free does not want to stay in the hospital. Patient was initially admitted with plans for stress test. He states he believes he had a stress test about a year ago but cannot be certain of that. No prior stress noted in our charting system. Patient very insistent he does not want to stay and get a stress test or any further treatment. He did agree to stay for 2nd troponin which was drawn at 11:30 p.m. This was also negative and patient left against medical advice with the understanding on that is not all emergency conditions have been ruled out. Review of Systems Review of Systems: All systems reviewed & are unremarkable except as noted in HPI and below PMFSH Past Medical History Medical History Cardiac murmur Patient reports he has had it since childhood Hepatic cirrhosis due to chronic hepatitis C infection With prior treatment and resolution Overactive bladder Lumbar spondylosis Cervical spondylosis Rotator cuff arthropathy of right shoulder Actinic keratosis Allergic rhinitis, cause unspecified (01/15/18) Anxiety BPH (benign prostatic hyperplasia) (07/24/17) Chronic low back pain (07/24/17) Essential (primary) hypertension Gastroesophageal reflux disease without esophagitis History of basal cell carcinoma History of prostate cancer IFG (impaired fasting glucose) Peripheral neuropathy (11/20/17) Peripheral vascular disease (11/13/17) SVT (supraventricular tachycardia) Status post ablation Unspecified osteoarthritis, unspecified site Surgical History Surgical History History of laparoscopic appendectomy Status post cataract extraction of both eyes with insertion of intraocular lens H/O excision of lamina of cervical vertebra for decompression of spinal cord Status post cervical spinal fusion History of cardiac radiofrequency ablation SVT Status post hernia repair Bilateral inguinal hernia History of back surgery L4-L5 Family History Family History Father Family history of malignant neoplasm of esophagus Mother Acute myocardial infarction Social History Social History Social History: He reports that he has been since October 2021. He and his raised 6 children. They were for 50 years prior to her . He smoked from approximately age [age] per to quitting. 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 He then continued to work part-time until he had his most recent back surgery. Code status: DNR/DNI per patient request. Healthcare power of deputy county attorney: Markos Costa (son) Smoking packs per day: 0.5 Smoking cigarettes per day: 10.0 Years smoked: 5 Smoking pack-years: 2.50 Smoking status: Former smoker Second hand tobacco smoke exposure: No Smoking end date: 10/22/1964 Alcohol intake: current Drinks per week: 1 Alcohol use details: Beer Substance use: never Substance use type: does not use Do You Feel Safe in your Home?: Yes Lack of Transportation: No Lack of Food: Never True Current Housing: I Have Housing Concerned About Future Housing: No Difficulty Paying Gas/Electric Bills: No Difficulty Paying for Meds: No Currently Unemployed: No Education: High School Diploma/GED Difficulty w/ Childcare or Family Care: No Living arrangements: with family Additional living arrangements comments: Son Occupation/Education: retired Gender identity (if verbalized by the patient): Male Sexual Orientation (if Verbalized by the Patient): Straight or Heterosexual Spiritual care concerns: No Agree to blood products: Yes Meds Home Medications and Allergies Home Medications ?Medication ?Instructions ?Recorded ?Confirmed ?Type doxazosin 8 mg tablet 8 mg PO DAILY #90 tabs 06/25/24 09/12/24 Rx latanoprost 0.005 % eye drops 1 drp EACH EYE HS 07/26/24 09/12/24 History hydrocodone 7.5 mg-acetaminophen 1 tablet PO Q6H PRN Pain (Scale 11/28/24 Rx 325 mg tablet Score 4-6) #120 tabs Allergies Allergy/AdvReac Type Severity Reaction Status Date / Time No Known Allergies Allergy Verified 12/10/24 19:52 Vital Signs Vital Signs - 24 hr 12/10/24 19:56 12/10/24 20:12 12/10/24 20:13 Temperature 37.2 C Pulse Rate 64 59 L Respiratory Rate 15 Blood Pressure 120/66 Pulse Oximetry 96 100 Oxygen Delivery Room Air Room Air Exam Narrative: GENERAL: Well-appearing, well-nourished, and in no acute distress. HEAD: Normocephalic, atraumatic. ENT:? Mucous membranes moist. CHEST: Clear to auscultation.? No respiratory distress. HEART: Regular rate and rhythm. ? Normal peripheral pulses. Known mitral murmur ABDOMEN: Soft, nontender, nondistended. EXTREMITIES: Normal range of motion. No peripheral edema. SKIN: Warm dry normal color NEURO: Alert and oriented x3. PSYCH: Normal mood and affect H&P: Results Labs Labs: Short CBC 12/10/24 Range/Units 20:09 WBC 6.0 (4.5-10.0) K/mm3 Hgb 14.6 (14.0-18.0) g/dL Hct 42.6 (42.0-52.0) % Plt Count 146 L (150-375) k/mm3 [facility] 12/10/24 20:09 Sodium 137 Potassium 4.1 Chloride 99 Carbon Dioxide 27 BUN 21 H Creatinine 0.78 Glucose 96 Calcium 9.9 Cardiac Enzymes 12/10/24 Range/Units 20:09 Troponin I < 0.012 (0.000-0.034) ng/mL Liver Function 12/10/24 Range/Units 20:09 Total Bilirubin 0.6 (0.2-1.3) mg/dL AST 27 (17-59) U/L ALT 20 (6-50) U/L Alkaline Phosphatase 82 (38-126) U/L Albumin 4.5 (3.5-5.1) g/dL Pulse Oximetry SpO2 results: 96-100% on room air Attestation: I personally reviewed and interpreted this pulse oximetry as follows: Interpretation: No need for supplemental oxygenation at this time ECG Attestation: I personally reviewed and interpreted this ECG as follows: ECG completion date: 12/10/24 ECG completion time: 20:08 Prior ECG tracings: not available for review Interpretation: Sinus bradycardia rate of 57 WI interval 166 QRS duration 82 QTC 384 QRS axis -1?, no acute ischemic changes Imaging Chest x-ray: Radiologist's impression: EXAMINATION: XR chest 1V portable DATE: 12/10/2024 20:22 INDICATION: Chest pain. TECHNIQUE: A single frontal view of the chest was obtained. COMPARISON: Chest 2 views 01/20/2019 FINDINGS: There is no pneumonia, pleural effusion, or pneumothorax. The heart size is normal. Epidural electrodes are noted. IMPRESSION: 1. No acute cardiopulmonary disease. Reviewed, dictated and finalized at location A. OMER SERVICE CONSULTANT CTA Chest/Abd/Pelvis: Radiologist's impression: EXAMINATION: CTA chest abdomen pelvis DATE: 12/10/2024 21:18 INDICATION: Chest pain. Shortness of breath. TECHNIQUE: Computed tomographic angiography (CTA) of the chest, abdomen, and pelvis was performed with 100 mL Omnipaque-350 intravenous contrast. Automated exposure control and iterative reconstruction technique were employed. The dose-length product was 716.15 mGy-cm. Maximum intensity projection 3D-reconstructions of the aorta and other arteries were constructed by the technologist on a separate workstation. COMPARISON: CT abdomen and pelvis 11/11/2023 FINDINGS: CHEST CTA: There is mild scarring at the lung apices. There is mild dependent atelectasis bilaterally. The heart size is normal. No pericardial effusion. Aortic atherosclerosis is noted. No aneurysm or dissection. ABDOMEN AND PELVIS CTA: The liver demonstrates surface nodularity, consistent with cirrhosis. There is a 7 mm cyst in the liver. The gallbladder, spleen, pancreas, and adrenal glands are normal. There is cortical thinning of the kidneys. There is chronic wall thickening of the bladder with a diverticulum on the left. There are no dilated loops of bowel. There are changes of appendectomy. There are no pathologically enlarged lymph nodes. There is no free intraperitoneal fluid. There is mild aortic atherosclerosis. Epidural electrodes are noted. There is severe lumbar spondylosis. There are changes of anterior and posterior fusion procedures at L4-L5. IMPRESSION: 1. Mild aortic atherosclerosis. No aneurysm or dissection. 2. Cirrhosis of the liver. Reviewed, dictated and finalized at location A. OMER SERVICE CONSULTANT Assessment and Plan Assessment and plan (1) Chest pain: Code(s): R07.9 - Chest pain, unspecified Status: Acute Assessment and Plan: -Substernal chest pain with concerning radiation pattern -Initial troponin negative, trend x3 -NM Stress ordered for AM with NPO after midnight -Cardiology consult ordered for 12/11/24 (2) Essential (primary) hypertension: Code(s): I10 - Essential (primary) hypertension Status: Acute Assessment and Plan: -Continue home medication -Blood pressure reviewed and stable at time of admission (3) Elevated lipase: Code(s): R74.8 - Abnormal levels of other serum enzymes Status: Acute Assessment and Plan: -NPO at midnight -Trend labs, ordered daily lipase x3 -No CT findings of pancreatitis Plan Patient left against medical advise after plan was developed. Quality VTE Prophylaxis VTE prophylaxis: mechanical ordered and pharmacologic ordered Hospitalist [facility] Advance Care Plan I have confirmed that the patient's Advanced Care Plan is present, code status is documented, or surrogate decision maker is listed in patient medical record.: Yes Medication Reconciliation I have utilized all available resources to obtain, update and review the patients current medications (includes all prescriptions, OTC, herbals, cannabis, and nutritional supplements).: Yes
[2024-12-11 00:02] LABS: Troponin I < 0.012 ng/mL (0.000-0.034)
[2024-12-11 00:21] VITALS: BP 118/64; PULSE 58; RESP 15; O2SAT 99
--- NOTE | 2024-12-11 00:28 | PM.DS ---
DS: Admitting Diagnosis Discharge Date 12/11/2024 Admitting Diagnosis Chest pain, essential hypertension, elevated lipase DS: Discharge Diagnosis Discharge Diagnosis (1) Chest pain: Code(s): R07.9 - Chest pain, unspecified Status: Acute (2) Essential (primary) hypertension: Code(s): I10 - Essential (primary) hypertension Status: Acute (3) Elevated lipase: Code(s): R74.8 - Abnormal levels of other serum enzymes Status: Acute (4) Left against medical advice: Code(s): Z53.29 - Procedure and treatment not carried out because of patient's decision for other reasons Status: Acute DS: Summary Hospital Course Reason for hospitalization: Chest pain Hospital Course: 79 year old male patient who presented to ER with midsternal chest pain radiating to the back received aspirin but no other pain medications. Patient told nursing staff about 3 hours into his stay that he wanted to go home. By this time he had already been admitted to the Hospitalist Service and the ER doctor who saw him was gone for the day. Thus, I went down to examine patient and discuss reasons for admission. Patient was very polite about it but stated he did not want to stay for admission or further testing. Immediately before I got to his room his second troponin was being drawn. Patient did agree to wait for the results of this test since his pain started 3-4 hours before his first troponin. He said that if the repeat test was normal he wanted to leave. He understood the risks of a heart attack or other cardiac event if he left. Patient's son was present for the entire discussion and when I went back to update on the result (negative) of second troponin. Together we reviewed the CT imaging which showed a nodular liver/cirrhosis (with a 7 mm cyst) from prior Hep C. No PE or aortic disection per my independent interpretation of CTA Chest/Abdomen/Pelvis. Patient able to explain back the reasons to stay and the reasons he wanted to leave AMA anyways. He signed AMA form which was witnessed by his son and he left in guarded (but apparently stable) condition with return precautions discussed. Status at Discharge Cognitive/behavioral status at discharge: Awake, alert, oriented and pleasant Functional status at discharge: independent ambulation Overall status at discharge: patient is back to baseline Time Spent with Patient Time attestation: Total time spent providing and/or coordinating discharge services: 29 minutes Time spent: Less than 30 minutes Specific discharge activities: AMA discussion and paperwork Exam Narrative: GENERAL: Well-appearing, well-nourished, and in no acute distress. HEAD: Normocephalic, atraumatic. ENT:? Mucous membranes moist. CHEST: Clear to auscultation.? No respiratory distress. HEART: Regular rate and rhythm. ? Normal peripheral pulses. Known mitral murmur ABDOMEN: Soft, nontender, nondistended. EXTREMITIES: Normal range of motion. No peripheral edema. SKIN: Warm dry normal color NEURO: Alert and oriented x3. PSYCH: Normal mood and affect DS: Data Data Completed and Pending Labs on day of discharge: Labs from last 24 hours 12/10/24 12/10/24 23:31 20:09 WBC 6.0 RBC 4.15 L Hgb 14.6 Hct 42.6 MCV 102.7 H MCH 35.2 H MCHC 34.3 RDW 12.0 Plt Count 146 L MPV 10.0 Immature Gran % (Auto) 0.3 Neut % (Auto) 58.9 Lymph % (Auto) 23.0 [place] % (Auto) 14.7 H Eos % (Auto) 2.3 Baso % (Auto) 0.8 Lymph # (Auto) 1.39 [place] # (Auto) 0.9 H Eos # (Auto) 0.1 Baso # (Auto) 0.1 Abs Immat Gran (auto) 0.02 Absolute Neuts (auto) 3.6 Absolute Nucleated RBC 0.000 Nucleated RBC % 0.0 PT 12.9 INR 0.9 APTT 25.8 D-Dimer 0.49 H Sodium 137 Potassium 4.1 Chloride 99 Carbon Dioxide 27 Anion Gap 11 BUN 21 H Creatinine 0.78 Estim Creat Clear Calc 65 Estimated GFR > 60 Glucose 96 Calcium 9.9 Total Bilirubin 0.6 AST 27 ALT 20 Alkaline Phosphatase 82 Troponin I < 0.012 < 0.012 Total Protein 8.0 Albumin 4.5 Lipase 356 H Procedures/Treatments: Ordered NM Stress but patient left AMA from ER instead of admission and test completion Discharge Plan Discharge Clinical Impression: Chest pain Patient Disposition: Left Against Medical Advice Condition: Guarded Prognosis Instructions: Chest Pain (ED) Additional Instructions: If your condition changes please return to the emergency department for re-evaluation and likely readmission. Patient Language: Armenian Prescriptions: No Action latanoprost 0.005 % drops 1 drp EACH EYE HS doxazosin 8 mg tablet 8 mg PO DAILY Qty: 90 2RF Patient Comments: takes in am hydrocodone-acetaminophen 7.5-325 mg tablet 1 tablet PO Q6H PRN (Reason: Pain (Scale Score 4-6)) Qty: 120 0RF Follow-up/Referrals: Zackery Randle MD [Primary Care Provider] - Time of Disposition: 00:30 Quality VTE Prophylaxis VTE prophylaxis: mechanical ordered and pharmacologic ordered Patient left AMA from ER room but after admit order processed and waiting for a room upstairs. Thus, H&P and AMA Discharge Summary completed by Hospitalist Service. Hospitalist MIPS Heart Failure (Exclusion) Patient has history of Heart Transplant or Left Ventricular Assistive Device?: No IF YES, STOP HERE Heart Failure (Qualifier) Patient has current or prior documentation of LVEF less than or equal to 40%, or mod/servere depressed LVSF?: No IF NO, STOP HERE
--- OUTSIDE RECORDS SUMMARY | 2024-12-11 00:37 | XMS_ITS | Clinical Summary ---
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 Gender Identity Not on file Sexual Orientation [...] Screen Completed , 05/07/2014 Insurance MEDICARE [employer] [facility] MEDICARE Address: [place] [id number] [place] [id number] MEDICARE [employer] [facility] MEDICARE Address: [facility] [address] [place] [address] [employer]ARE [employer] Advance Directives For more information, please contact: [phone] * Full Code (Latest Code Status on File) Date Activated Date Inactivated Comments 01/23/2019 12:02 PM 01/24/2019 4:18 PM Care Teams Contract Administration Manager Relationship Specialty Start Date End Date Zackery Randle MD [address] [place] [address] PCP - General 01/24/19 Jc Pham MD Consulting Physician Cardiology 01/24/19
--- OUTSIDE RECORDS SUMMARY | 2024-12-11 00:37 | XMS_ITS | Patient Health Summary ---
Author Organization [facility] [place] Address [address] [place] [address] Care Team Providers Care Director Public Policy Name Role Phone Zackery Randle MD Primary Care Provider [phone] Note from [facility],non-owned Affiliates and Associated Physician Practices is amultiple site organization consisting of ambulatory clinics and hospital sitesin [place], [place] and [place]. This disclosure is being madepursuant to the Care Everywhere program and may not contain all information available regarding this patient. Last updated 18.[facility] Allergies No known active allergies Medications * Be aware that medications may not be up to date on this document. Alwaysverify current medications with the patient. * HYDROcodone-acetaminophen (Calvin) 5-325 MG tablet(Started 10/26/2022) Take 1 (one) [...] Comments Blood Pressure 107/58 11/06/2022 12:40 PM SEARCH PLANNER Pulse 65 11/06/2022 12:40 PM SEARCH PLANNER Temperature 36.7 C (98 F) 11/06/2022 12:40 PM SEARCH PLANNER Respiratory Rate 18 11/06/2022 12:40 PM SEARCH PLANNER Oxygen Saturation 95% 11/06/2022 12:40 PM SEARCH PLANNER Inhaled Oxygen Concentration - - Weight 80.7 kg (178 lb) 11/06/2022 12:40 PM SEARCH PLANNER Height 175.3 cm (5' 9 ) 11/06/2022 12:40 PM SEARCH PLANNER Body Mass Index 26.29 11/06/2022 12:40 PM SEARCH PLANNER Procedures * HEPATITIS C RNA QUANTITATIVE(Performed [...] for Other cirrhosis of liver (HCC) * MI LIVER ELASTOGRAPHY(Performed 11/06/2022) Performed for Other cirrhosis [...] 03/17/2014) * SMOOTH MUSCLE ANTIBODY(Performed 03/17/2014) * [id number]-[id number] BLOOD PHENOTYPING PANEL(Performed 03/17/2014) * HEPATITIS C RNA QUANTITATIVE(Performed 03/17/2014) * HEPATITIS B SURFACE ANTIGEN W RFLX CONFIRMATION(Performed 03/17/2014) * HEPATITIS A ANTIBODY(Performed 03/17/2014) * HEPATITIS B CORE ANTIBODY TOTAL(Performed 03/17/2014) * HEPATITIS B SURFACE ANTIBODY(Performed 03/17/2014) * FERRITIN(Performed 03/17/2014) * TRANSFERRIN(Performed 03/17/2014) * IRON BLOOD(Performed 03/17/2014) Results * HEPATITIS C RNA QUANTITATIVE (11/14/2022 11:09 AM SEARCH PLANNER) Only the most recent of2 resultswithin [...] of this assay have been determined by [employer]. The modifications have not been cleared or approved by the FDA. This assay has been validated pursuant to the CLIA regulations and is used for clinical purposes. For more information on this test, go to: http://education.Handy/faq/IIN39x7 (This link is being provided for informational/ educational purposes only.) Test Performed at: [facility] [address] [place] [address] KRYSTAL RUBIO DO,MPH Blood BLOOD SPECIMEN / Unknown 11/14/2022 11:09 AM SEARCH PLANNER 11/14/2022 11:09 AM SEARCH PLANNER Harry Kinsey MD LAB - CHEMISTRY GUS ZAMBRANO Performing Organization Address [facility] Co de Phone Number [facility] [address] [place] [address] * ALPHA FETOPROTEIN BLOOD TUMOR MARKER (11/14/2022 11:09 AM SEARCH PLANNER) Only the most recent of2 resultswithin the time period is included. Alpha-Fetoprotei n Tumor Marker 3.8 <6.1 ng/mL [facility] Comment: This test was performed using the Derrek Tatums chemiluminescent method. Values obtained from different assay methods cannot be used interchangeably. AFP levels, regardless of value, should not be interpreted as absolute evidence of the presence or absence of disease. Test Performed at: [facility] [place] [address] [place] [address] GRAHAM MILLER Blood BLOOD SPECIMEN / Unknown 11/14/2022 11:09 AM SEARCH PLANNER 11/14/2022 11:09 AM SEARCH PLANNER Harry Kinsey MD LAB - CHEMISTRY GUS ZAMBRANO Performing Organization Address [facility] Co de Phone Number [facility] [address] [place] [address] * PT-INR (11/14/2022 11:09 AM SEARCH PLANNER) [facility] INR 1.0 [facility] Comment: Reference Range 0.9-1.1 Moderate-intensity Warfarin Therapy 2.0-3.0 Higher-intensity Warfarin Therapy 3.0-4.0 PT 10.5 9.0 - 11.5 sec [facility] Comment: For additional information, please refer to http://education.Handy/faq/WQR545 (This link is being provided for informational/ educational purposes only.) Test Performed at: [facility] [address] MATTHEW MCMAHON MD Blood BLOOD SPECIMEN / Unknown 11/14/2022 11:09 AM SEARCH PLANNER 11/14/2022 11:09 AM SEARCH PLANNER Harry Kinsey MD LAB - COAGULATION OR DERABLES Performing Organization Address City/State/[facility] Co de Phone Number [address] [address] * (ABNORMAL) CBC W/O DIFFERENTIAL (11/14/2022 11:09 AM SEARCH PLANNER) [facility] White Blood Cell Count 5.6 3.8 - [...] 12.5 fL [facility] Comment: Test Performed at: [facility] [address] [address] KRYSTAL RUBIO DO,MPH Blood BLOOD SPECIMEN / Unknown 11/14/2022 11:09 AM SEARCH PLANNER 11/14/2022 11:09 AM SEARCH PLANNER Harry Kinsey MD LAB - HEMATOLOGY ORD ERABLES Performing Organization Address [facility]/ZIP Co de Phone Number [facility] [address] [place] [phone] * COMPREHENSIVE METABOLIC PANEL (11/14/2022 11:09 AM SEARCH PLANNER) Only the most recent of6 resultswithin [...] 46 U/L [facility] Comment: Test Performed at: [facility] [address] [place] [address] KRYSTAL RUBIO DO,MPH Blood BLOOD SPECIMEN / Unknown 11/14/2022 11:09 AM SEARCH PLANNER 11/14/2022 11:09 AM SEARCH PLANNER Harry Kinsey MD LAB - CHEMISTRY GUS ZAMBRANO Performing Organization Address [facility] Co de Phone Number [facility] [address] [place] [phone] * MI LIVER ELASTOGRAPHY (11/06/2022 1:05 PM SEARCH PLANNER) Narrative Shiraz Wilson MD - 11/06/2022 1:05 PM SEARCH PLANNER Shiraz Wilson MD 11/06/2022 5:01 PM [...] patients with nonalcoholic fatty liver disease. Gastroenterology 2019;156:4375-1923. Niyah MS, Joe R, Van Theodora ML, [...] FIB4 score (Stacyuke et al. Hepatology Communications 2019;3:9458-0553) or NAFLD Fibrosis score (Canales et al. Clinical Gastroenterology and Hepatology 2019;17:6199-5505. from routine clinical data. 3. Liver stiffness [...] change as additional supporting data becomes available. [email or web address] Harry Kinsey MD PROCEDURE/MINOR SURG ICAL ORDERABLES [...] Selvin Dean MD CT ORDERABLES * PT-INR [facility] (06/15/2015 1:05 PM CDT) Only the most recent of2 resultswithin the time period is included. PT 12.7 12.1 - 14.8 Seconds [facility] INR 0.9 See Comment [facility] Comment: Suggested therapeutic range for low-intensity coumadin therapy for venous thromboembolism prophylaxis is an INR of 2.0-3.0. For high risk patients (Mitral Valve Prosthesis, Atrial Fibrillation, history of TIA/stroke), suggested prophylactic therapeutic range is an INR of 2.5-3.5. Blood specimen (specimen) BLOOD SPECIMEN / Unknown 06/15/2015 1:05 PM CDT 06/15/2015 1:24 PM CDT Narrative [facility] - 06/15/2015 1:41 PM CDT Is patient on Heparin, Argatroban or Dabigatran?->N Selvin Dean MD LAB - COAGULATION OR DERABLES [facility] [address] [place] [address], [facility] [phone] * (ABNORMAL) CBC W AUTO DIFFERENTIAL (06/15/2015 1:05 PM CDT) Only the most recent of7 resultswithin the time period is included. WBC 4.2 3.5 - 10.5 10 3/uL [facility] RBC 3.85(L) 4.30 - 5.70 10 6/uL [facility] Hemoglobin 13.8 13.5 - 17.5 g/dL [facility] Hematocrit 39.4 39.0 - 50.0 % [facility] MCV 102.3(H) 81.0 - 97.0 fL [facility] MCH 35.8(H) 28.0 - 34.0 pg [facility] MCHC 35.0 32.0 - 36.0 g/dL [facility] Platelet Count 109(L) 150 - 400 10 3/uL [facility] RDW-SD 45.9 36.0 - 50.0 fL [facility] RDW-CV 12.3 11.2 - 14.8 % [facility] MPV 10.3 9.3 - 12.8 fL [facility] Neutrophils % 56.4 35.0 - 70.0 % [facility] Lymphocytes % 28.7 19.7 - 55.1 % [facility] Monocytes % 10.3 3.0 - 15.0 % [facility] Eosinophils % 3.6 0.0 - 6.0 % [facility] Basophil % 1.0 0.0 - 1.5 % [facility] Neutrophils Absolute 2.4 1.6 - 7.0 10 3/uL [facility] Lymphocyte Absolute 1.2 0.8 - 2.9 10 3/uL [facility] Monocytes Absolute 0.43 0.14 - 0.66 10 3/uL [facility] Eosinophils Absolute 0.15 0.00 - 0.22 10 3/uL [facility] Basophils Absolute 0.04 0.00 - 0.06 10 3/uL [facility] Immature Granulocytes % 0.2 0.0 - 1.0 % [facility] Blood specimen (specimen) BLOOD SPECIMEN / Unknown 06/15/2015 1:05 PM CDT 06/15/2015 1:24 PM CDT Selvin Dean MD LAB - HEMATOLOGY NED MARTINI Performing Organization Address [facility]/ZIP Co de Phone Number [address] [phone] * LIPASE BLOOD (06/15/2015 1:05 PM CDT) Lipase 13 8 - 78 Units/L [facility] Blood specimen (specimen) BLOOD SPECIMEN / Unknown 06/15/2015 1:05 PM CDT 06/15/2015 1:24 PM CDT Selvin Dean MD LAB - CHEMISTRY GUS ZAMBRANO Performing Organization Address [facility] Co de Phone Number [address] [phone] * AMYLASE BLOOD (06/15/2015 1:05 PM CDT) Amylase 84 25 - 125 Units/L [facility] Blood specimen (specimen) BLOOD SPECIMEN / Unknown 06/15/2015 1:05 PM CDT 06/15/2015 1:24 PM CDT Selvin Dean MD LAB - CHEMISTRY GUS ZAMBRANO Performing Organization Address [facility] Co de Phone Number [address] [phone] * FERRITIN (06/15/2015 1:05 PM CDT) Only the most recent of2 resultswithin the time period is included. Ferritin 261 22 - 275 ng/mL [facility] Blood specimen (specimen) BLOOD SPECIMEN / Unknown 06/15/2015 1:05 PM CDT 06/15/2015 1:24 PM CDT Selvin Dean MD LAB - CHEMISTRY GUS ZAMBRANO Performing Organization Address City/[facility]/[place] [address], [facility] [phone] * FOLATE RBC (12/15/2014 1:56 PM SEARCH PLANNER) Pathologist [facility] Folate Hemolysate 480.7 Not Estab. ng/mL [facility] Hematocrit 41.4 37.5 - 51.0 % [facility] Folate RBC 1161 499 - 1504 ng/mL [facility] Blood specimen (specimen) BLOOD SPECIMEN / Unknown 12/15/2014 1:56 PM SEARCH PLANNER 12/15/2014 2:22 PM SEARCH PLANNER Narrative [facility] - 12/16/2014 7:09 PM SEARCH PLANNER Performed at: [address] [place] [address] [id number] [employer] Cut[employer] Machine Operator: Maurizio Carpenter PhD, Phone: [phone] Selvin Dean MD LAB - CHEMISTRY GUS ZAMBRANO Performing Organization Address [facility]/ZIP Co de Phone Number [facility]) * TESTOSTERONE MALE FREE (12/15/2014 1:56 PM SEARCH PLANNER) [facility] Testosterone Free Calculation 82 47 - 244 pg/mL [facility]) Comment: INTERPRETIVE INFORMATION: Testosterone, Free Kevin Stage IV 35 - 169 pg/mL Kevin Stage V 41 - 239 pg/mL The concentration of Free Testosterone is derived from a mathematical expression based on the constant for the binding of testosterone to Sex Hormone Binding Globulin (SHBG). Access complete set of age- and/or gender-specific reference intervals for this test in the [facility] Laboratory Test Directory ([employer]). Blood specimen (specimen) BLOOD SPECIMEN / Unknown 12/15/2014 1:56 PM SEARCH PLANNER 12/15/2014 2:22 PM SEARCH PLANNER Selvin Dean MD LAB - CHEMISTRY GUS ZAMBRANO Performing Organization Address City/[facility]/ZIP Co de Phone Number [facility]) * TESTOSTERONE TOTAL MALE (12/15/2014 1:56 PM SEARCH PLANNER) Pathologist [facility] Testosterone 642 300 - 720 ng/dL [facility] Comment: Total testosterone values may not reflect optimal concentrations in all individuals. Free or bioavailable testosterone measurements may provide supportive information. REFERENCE INTERVAL: Testosterone, Adult Male Access complete set of age- and/or gender-specific reference intervals for this test in the [facility] Laboratory Test Directory ([facility] Blood specimen (specimen) BLOOD SPECIMEN / Unknown 12/15/2014 1:56 PM SEARCH PLANNER 12/15/2014 2:23 PM SEARCH PLANNER Selvin Dean MD LAB - CHEMISTRY GUS ZAMBRANO [facility]) * VITAMIN B12 (12/15/2014 1:56 PM SEARCH PLANNER) [facility] Vitamin B12 712 213 - 816 pg/mL [facility] Blood specimen (specimen) BLOOD SPECIMEN / Unknown 12/15/2014 1:56 PM SEARCH PLANNER 12/15/2014 2:23 PM SEARCH PLANNER Selvin Dean MD LAB - CHEMISTRY GUS ZAMBRANO [address] [phone] * HEPATITIS C REAL-TIME PCR QUANTASURE (12/03/2014 10:00 AM SEARCH PLANNER) Only the most recent of3 resultswithin the time period is included. [facility] Hepatitis C Virus RNA PCR Quantitative <15 NOT DETECTED <15 IU/mL [facility] ([facility]) Hepatitis C Virus RNA Log IU/mL <1.18 NOT DETECTED <1.18 Log IU/mL [facility] ([facility]) See Note [facility] ([facility]) Comment: Please note: The guidelines for the [...] of this assay have been determined by [employer]. Performance characteristics refer to the analytical performance of the test. For more information on this test, go to: http://education.Handy/faq/PSD56e6 Test Performed at: [facility] [address] [facility] [place] [address] KRYSTAL RUBIO DO,MPH 12/03/2014 10:0 0 AM SEARCH PLANNER 12/03/2014 10:01 AM SEARCH PLANNER Selvin Dean MD LAB - SEROLOGY ORDER PIETER Performing Organization Address [facility] Co de Phone Number [facility]) * CREATININE BLOOD - POCT (IP) [facility] (05/07/2014) [facility] Creatinine POCT 1.13 0.3 - 1.3 mg/dL [facility] eGFR POCT 60 60 ml/min [facility] 05/07/2014 Selvin Dean MD LAB - POINT OF CARE ORDERABLES Performing Organization Address [facility] Co de Phone Number [facility] * HEPATITIS C GENOTYPE (03/17/2014 3:50 PM CDT) [facility] Hepatitis C Genotype 1b Comment See Note [facility] ([facility]) Comment: This assay can detect [...] PM CDT 03/17/2014 4:41 PM CDT Narrative [facility] ([place]) - 03/24/2014 3:19 PM CDT Performed at: - Lab[address] [id number] [employer] Operator: Krystal Leon MD, Phone: [phone] Selvin Dean MD LAB - CHEMISTRY GUS ZAMBRANO [facility] ([place]) * BRIANNA W/REFLEX IFA PATTERN (03/17/2014 2:52 PM CDT) [facility] BRIANNA None Detected None Detected [facility] Blood specimen (specimen) BLOOD SPECIMEN / Unknown 03/17/2014 2:52 PM CDT 03/17/2014 4:43 PM CDT Selvin Dean MD LAB - SEROLOGY ORDER PIETER Performing Organization Address [facility] Co de Phone Number [address] [phone] * MITOCHONDRIAL ANTIBODY SCREEN (03/17/2014 2:52 PM CDT) [facility] Mitochondrial M2 Antibody 7.0 0.0 - 20.0 Units [facility] Comment: Mitochondrial M2 Antibody Numeric Result Interpretation: <20.1 Units: Negative 20.1 - 24.9 Units: Equivocal >24.9 Units: Positive Blood specimen (specimen) BLOOD SPECIMEN / Unknown 03/17/2014 2:52 PM CDT 03/17/2014 4:43 PM CDT Selvin Dean MD LAB - CHEMISTRY GUS ZAMBRANO Performing Organization Address [facility]/ZIP Co de Phone Number [address] [phone] * [id number] BLOOD PHENOTYPING PANEL (03/17/2014 2:52 PM CDT) Hbevi-9-Rszdxiwxvt n 156 90 - 200 mg/dL [facility] Phenotype (PI) MM [facility] Comment: Phenotype Population A-1-AT Concentration* Incidence [...] PM CDT 03/17/2014 4:43 PM CDT Narrative [facility] - 03/20/2014 3:19 PM CDT Performed at: [address] [id number] [employer] Operator: Ed Ramey MD, Phone: [phone] Performed at: [address] [id number] [employer] Operator: Krystal Leon MD, Phone: [phone] Selvin Dean MD LAB - CHEMISTRY GUS ZAMBRANO [facility] * (ABNORMAL) TRANSFERRIN (03/17/2014 2:52 PM CDT) Transferrin 273 174 - 382 mg/dL [facility] Transferrin Saturation % 64(H) 16 - 50 % [facility] Blood specimen (specimen) BLOOD SPECIMEN / Unknown 03/17/2014 2:52 PM CDT 03/17/2014 4:43 PM CDT Selvin Dean MD LAB - CHEMISTRY ORDBrittni MUÑOZLES Performing Organization Address [facility]/ZIP Co de Phone Number [address] [phone] * SMOOTH MUSCLE ANTIBODY (03/17/2014 2:52 PM CDT) F-Actin Antibody IgG 13.1 0.0 - 19.9 Units [facility] Comment: F-Actin Antibody Numeric Result Interpretation: <20.0 Units: Negative 20.0 - 30.0 Units: Weak Positive >30.0 Units: Moderate to Strong Positive Blood specimen (specimen) BLOOD SPECIMEN / Unknown 03/17/2014 2:52 PM CDT 03/17/2014 4:43 PM CDT Selvin Dean MD LAB - SEROLOGY ORDER PIETER Performing Organization Address [facility] Co de Phone Number [address] [phone] * (ABNORMAL) IRON BLOOD (03/17/2014 2:52 PM CDT) Pathologist [facility] Iron 219(H) 50 - 175 mcg/dL [facility] Blood specimen (specimen) BLOOD SPECIMEN / Unknown 03/17/2014 2:52 PM CDT 03/17/2014 4:43 PM CDT Selvin Dean MD LAB - CHEMISTRY GUS ZAMBRANO Performing Organization Address [facility] Co de Phone Number [address] [phone] * HEPATITIS B SURFACE ANTIBODY (03/17/2014 2:52 PM CDT) Pathologist [facility] Hepatitis B Virus Surface Antibody Non-react felix Non-react felix [facility] Comment: < 8 mIU/mL Hepatitis B surface Antibody (HBsAb). Nonreactive for HBsAb - individual is considered not immune to Hepatitis B Virus infection. Hepatitis B Surface Antibody Quantitative 5.3 <8.0 mIU/mL [facility] Comment: Hepatitis B Surface Antibody Numeric Result Interpretation: Nonreactive: <8.0 mIU/mL Indeterminate: 8.0 - 12.0 mIU/mL Reactive: >12.0 mIU/mL Blood specimen (specimen) BLOOD SPECIMEN / Unknown 03/17/2014 2:52 PM CDT 03/17/2014 4:43 PM CDT Selvin Dean MD LAB - CHEMISTRY GUS ZAMBRANO Performing Organization Address City/[facility]/ZIP Co de Phone Number [address] [phone] * (ABNORMAL) HEPATITIS B CORE ANTIBODY (03/17/2014 2:52 PM CDT) Pathologist [facility] HBc Antibody Total Reactive(A ) Non-reacti ve [facility] Blood specimen (specimen) BLOOD SPECIMEN / Unknown 03/17/2014 2:52 PM CDT 03/17/2014 4:43 PM CDT Selvin Dean MD LAB - CHEMISTRY GUS ZAMBRANO Performing Organization Address [facility]/ZIP Co de Phone Number [address] [phone] * HEPATITIS B SURFACE ANTIGEN W RFLX CONFIRMATION (03/17/2014 2:52 PM CDT) [facility] Hepatitis B Virus Surface Antigen Screen Negative Negative [facility] Blood specimen (specimen) BLOOD SPECIMEN / Unknown 03/17/2014 2:52 PM CDT 03/17/2014 4:44 PM CDT Narrative [facility] - 03/19/2014 6:19 AM CDT Performed at: 01 - [address] [id number] [employer] Operator: Ed Ramey MD, Phone: [phone] Selvin Dean MD LAB - CHEMISTRY GUS ZAMBRANO [facility] ([facility]) * (ABNORMAL) HEPATITIS A ANTIBODY (03/17/2014 2:52 PM CDT) Pathologist [facility] Hepatitis A Virus Antibody Total Positive(A ) Negative [facility] ([place] Blood specimen (specimen) 03/17/2014 2:52 PM CDT 03/17/2014 4:44 PM CDT Narrative [facility] ([place]) - 03/19/2014 6:19 AM CDT Performed at: - [address] [id number] [employer] Operator: Ed Ramey MD, Phone: [phone] Selvin Dean MD LAB - CHEMISTRY GUS ZAMBRANO [facility] Care Teams Director Public Policy Relationship Specialty Start Date End Date Zackery Randle MD [address] [place] [address] PCP - General 12/18/14
--- OUTSIDE RECORDS SUMMARY | 2024-12-11 00:37 | XMS_ITS | Referral Summary ---
Author Organization [facility] [employer] Address [address] [place] [address] Care Team Providers Care Cake Batter Mixer Name Role Phone Zackery Randle MD Primary Care Provider [phone] Source Comments [facility] [employer],non-owned Affiliates and Associated Physician Practices is amultiple site organization consisting of ambulatory clinics and hospital sitesin [place], [place], [place] and [place]. This disclosure is being madepursuant to the Care Everywhere program and may not contain all information available regarding this patient. Last updated 18.[facility] [employer] Allergies No known active allergies Medications * Be aware that medications may not be up to date on this document. Alwaysverify current medications with the patient. Medication Sig Dispensed Refills Start Date End Date Status HYDROcodone-acetaminop hen ([place]) 5-325 MG tablet Take 1 (one) tablet [...] Comments Blood Pressure 107/58 11/06/2022 12:40 PM TRANSPORTATION CONSULTANT Pulse 65 11/06/2022 12:40 PM TRANSPORTATION CONSULTANT Temperature 36.7 C (98 F) 11/06/2022 12:40 PM TRANSPORTATION CONSULTANT Respiratory Rate 18 11/06/2022 12:40 PM TRANSPORTATION CONSULTANT Oxygen Saturation 95% 11/06/2022 12:40 PM TRANSPORTATION CONSULTANT Inhaled Oxygen Concentration - - Weight 80.7 kg (178 lb) 11/06/2022 12:40 PM TRANSPORTATION CONSULTANT Height 175.3 cm (5' 9 ) 11/06/2022 12:40 PM TRANSPORTATION CONSULTANT Body Mass Index 26.29 11/06/2022 12:40 PM TRANSPORTATION CONSULTANT Plan of Treatment Not on file Care Teams Cake Batter Mixer Relationship Specialty Start Date End Date Zackery Ranlde MD [address] [place] [address] PCP - General 12/18/14
--- OUTSIDE RECORDS SUMMARY | 2024-12-11 00:37 | XMS_ITS | Referral Summary ---
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 [employer] Gender Identity Not on file Sexual Orientation [...] Treatment Not on file Insurance [employer] [facility] MEDICARE Address: [address] [address] [place] [address] MEDICARE [employer] [facility] MEDICARE Address: [address] [address] [place] [address] MEDICARE SOL[employer]IONS Advance Directives For more information, please contact: [phone] * Full Code (Latest Code Status on File) Date Activated Date Inactivated Comments 01/23/2019 12:02 PM 01/24/2019 4:18 PM Care Teams Appliquer Relationship Specialty Start Date End Date Zackery Randle MD [address] [place] [id number] PCP - General 01/24/19 Jc Pham MD Consulting Physician Cardiology 01/24/19
--- OUTSIDE RECORDS SUMMARY | 2024-12-11 00:37 | XMS_ITS | Continuity of Care Document ---
Author Organization [facility] Address [address] [place] [address] Phone Care Team Providers Care Top Spotter Name Role Phone Mini Sheriff OD Unavailable [...] Diagnoses Date Provider Providers Copied on Encounter [facility], [address] [place] [place], [place], [id number], tel:[phone] vision is improved OS (chief complaint) No Information 3 Sharita Morse. [address], [place], [address], [place]. tel:[phone] [facility], [address] [place], [place], [id number], [place] tel:[phone] After-cataract, obscuring visionMacular degeneration (senile) of retina, unspecified 3 Tomás Ledbetter. [address], [place], [address], [place]. tel:[phone] [facility], [address] [place] [place], [id number], [place] tel:[phone] Senile nuclear sclerosisMacular degeneration (senile) of retina, unspecifiedVitreo us degeneration 2 Whit Hamm. [address], [place], [address], [place]. tel:[phone] Family History Family Member Type Diagnosis Age At Onset Father Problem (finding) Cancer Payers Payer name Insurance type Covered constitution party ID Authoriza tion(s) No Information Social History [...]
--- OUTSIDE RECORDS SUMMARY | 2024-12-11 00:37 | XMS_ITS | Clinical Summary ---
Author Organization [facility] Address [address] [place] [address] Care Team Providers Care Foundry Manager Name Role Phone Zackery Randle MD Primary Care Provider Source Comments [facility],non-owned Affiliates and Associated Physician Practices is amultiple site organization consisting of ambulatory clinics and hospital sitesin [place], [place], [place] and [place]. This disclosure is being madepursuant to the Care Everywhere program and may not contain all information available regarding this patient. Last updated 18.[facility] Allergies No known active allergies Medications * Be aware that medications may not be up to date on this document. Alwaysverify current medications with the patient. Medication Sig Dispensed Refills Start Date End Date Status HYDROcodone-acetaminop hen ([place]) 5-325 MG tablet Take 1 (one) tablet [...] Comments Blood Pressure 107/58 11/06/2022 12:40 PM SWITCHBOARD MECHANIC Pulse 65 11/06/2022 12:40 PM SWITCHBOARD MECHANIC Temperature 36.7 C (98 F) 11/06/2022 12:40 PM SWITCHBOARD MECHANIC Respiratory Rate 18 11/06/2022 12:40 PM SWITCHBOARD MECHANIC Oxygen Saturation 95% 11/06/2022 12:40 PM SWITCHBOARD MECHANIC Inhaled Oxygen Concentration - - Weight 80.7 kg (178 lb) 11/06/2022 12:40 PM SWITCHBOARD MECHANIC Height 175.3 cm (5' 9 ) 11/06/2022 12:40 PM SWITCHBOARD MECHANIC Body Mass Index 26.29 11/06/2022 12:40 PM SWITCHBOARD MECHANIC Plan of Treatment Health Maintenance Due Date [...] to complete this topic Care Teams Foundry Manager Relationship Specialty Start Date End Date Zackery Randle MD [address] [place] [address] PCP - General 12/18/14
== END 2024-12-11 06:30 | disposition left against medical advice (07) ==
LOC: ANHED 20:55 → ANHIMU 12-11 00:31 → ANH3MEDSUR 12-31 13:28
PROVIDERS: Admitting Provider Internal Medicine; Emergency Provider Emergency Medicine; PCP Family Medicine; Visit Provider Internal Medicine
DX: R07.9 Chest pain, unspecified (principal); I10 Essential (primary) hypertension; R74.8 Abnormal levels of other serum enzymes; N40.0 Benign prostatic hyperplasia without lower urinary tract symptoms; K21.9 Gastro-esophageal reflux disease without esophagitis; G62.9 Polyneuropathy, unspecified; I73.9 Peripheral vascular disease, unspecified; Z66 Do not resuscitate; Z96.1 Presence of intraocular lens; Z98.42 Cataract extraction status, left eye; Z98.41 Cataract extraction status, right eye; Z98.1 Arthrodesis status; Z98.890 Other specified postprocedural states; Z79.899 Other long term (current) drug therapy; Z87.891 Personal history of nicotine dependence
CPT/HCPCS: 36415; 71045; 71275; 74174; 80053; 83690; 84484; 85025; 85380; 85610; 85730; 93005; 99284; Q9967